=== PATIENT | female | born 1945 | race Caucasian/White ===

== ENCOUNTER 2022-07-18 08:42 | Outpatient (CLI) | payer MEDICARE, SELFPAY ==
--- NOTE | ~2022-07-18 | DEXA_ITS ---
Bone Density Report Name: REMINGTON WAN Age: 76 Sex: Female Ethnicity: White Date of : 1945 Indication: osteopenia; height loss; postmenopausal Referring Provider: MELISSA, [facility] Study: Bone densitometry was performed. Exam Date: July 18, 2022 Accession number: [id number] Bone Density: Region BMD T-score Z-score Classification AP Spine(L1-L4) 0.904 -1.3 1.1 Osteopenia Femoral Neck (Left) 0.601 -2.2 -0.1 Osteopenia Total Hip (Left) 0.785 -1.3 0.5 Osteopenia Femoral Neck (Right) 0.696 -1.4 0.7 Osteopenia Total Hip (Right) 0.821 -1.0 0.8 Normal Total Hip Mean 0.803 -1.2 0.7 Osteopenia World Health Organization criteria for BMD impression classify patients as: Normal (T-score at or above -1.0), Osteopenia (T-score between -1.0 and -2.5), or Osteoporosis (T-score at or below -2.5). 10-year Fracture Risk(1): Major Osteoporotic Fracture 13% Hip Fracture 3.5% Reported Risk Factors: [place] (), Neck BMD=0.601, BMI=33.6 (1) FRAX(R) Version 3.08. Fracture probability calculated for an untreated patient. Fracture probability may be lower if the patient has received treatment. Previous Exams: Region Exam Age BMD T-score BMD Change BMD Change Date g/cm2 vs Baseline vs Previous AP Spine (L1-L4) 07/18/2022 76 0.904 -1.3 0.038 (4.4%)* 0.038 (4.4%)* 11/18/2019 73 0.865 -1.7 Total Hip(Left) 07/18/2022 76 0.785 -1.3 -0.021 (-2.6%) -0.021 (-2.6%) 11/18/2019 73 0.805 -1.1 Total Hip(Right) 07/18/2022 76 0.821 -1.0 -0.031 (-3.7%) -0.031 (-3.7%) 11/18/2019 73 0.852 -0.7 *Denotes significance at 95% confidence level, LSC for AP Spine = 0.022 g/cm2, LSC for Total Hip = 0.027 g/cm2 Clinical Information Provided by Patient: Has used the following medications: Vitamin D, Calcium Patient maximum height was 62 Menopause Age: 51 Drinks caffeinated beverages Onset of menses at age 13 Number of children 1 Impression: The patient has low bone mass, based on the Left Femoral Neck T-score. The patient has an estimated ten-year risk of hip fracture of 3.5% and an estimated ten-year risk of major fracture of 13%, based on the WHO FRAX algorithm. The BMD for the Total Hip(Right) decreased, changing by -3.7% since the last DXA exam. Discussion: BONE DENSITY IS LOW AT ONE OR MORE SKELETAL SITES. THE PATIENT'S BMD AND CLINICAL RISK FACTORS CONTRIBUTE TO THIS PATIENT'S INCREASED RISK OF FRACTURE. This pa
--- NOTE | ~2022-07-18 | MM_ITS ---
EXAMINATION: MM screening mo BI w jie HISTORY: Screening mammogram TECHNIQUE: Craniocaudal and mediolateral oblique 3-D tomosynthesis images were obtained and synthetic 2-D images were generated. CAD analysis was submitted and interpreted. COMPARISON: 11/18/2019 bilateral screening mammogram BREAST PARENCHYMAL COMPOSITION: There are scattered areas of fibroglandular density. FINDINGS: Right breast: There is a new irregular high density spiculated approximately 1.8 cm mass in the poste rior upper outer right breast, highly suspicious for breast cancer. No other right breast mass or architectural distortion, malignant calcification, skin thickening or r etraction is noted. Occasional benign calcifications Left breast: There is no evidence of suspicious mass, calcification, or architectural distortion to s uggest malignancy in either breast. Benign calcifications. There has been no suspicious interval contreras ge. IMPRESSION: 1. 1.8 cm spiculated high density mass in the posterior upper outer right breast, highly suggestive o f malignancy 2. . Right breast ultrasound examination is recommended. BI-RADS Category 0: Incomplete: Needs additional imaging evaluation. Dr. Garces telephoned the report on 07/18/[address] Marino. Reviewed, dictated and finalized at location A. IMPRESSION: 1. 1.8 cm spiculated high density mass in the posterior upper outer right breas t, highly suggestive of malignancy 2. . Right breast ultrasound examination is recommended. BI-RADS Category 0: Incomplete: Needs additional imaging evaluation. Dr. Garces telephoned the report on 07/18/[address] Marino.
== END 2022-07-18 08:43 | disposition home or self-care (01) ==
PROVIDERS: PCP Internal Medicine; Visit Provider Internal Medicine
DX: Z12.31 Encounter for screening mammogram for malignant neoplasm of breast (principal); R92.8 Other abnormal and inconclusive findings on diagnostic imaging of breast; M85.88 Other specified disorders of bone density and structure, other site; M85.852 Other specified disorders of bone density and structure, left thigh; M85.851 Other specified disorders of bone density and structure, right thigh
CPT/HCPCS: 77063; 77067; 77080

== ENCOUNTER 2022-07-20 15:33 | Outpatient (CLI) | payer MEDICARE, SELFPAY ==
--- NOTE | ~2022-07-20 | US_ITS ---
US breast RT limited DATE: 07/20/2022 16:16 INDICATION: Right breast posterior upper outer quadrant mammographic mass TECHNIQUE: High-resolution ultrasound imaging targeted to upper outer quadrant posterior right breast mass COMPARISON: 07/18/2022 bilateral screening mammogram FINDINGS: There is a very irregular hypoechoic approximately 1.2 x 1.1 x 1.3 cm mass with posterior s hadowing at 10:00, corresponding to the mammographic abnormality, highly suggestive of malignancy IMPRESSION: BI-RADS Category 5: Highly suggestive of malignancy; appropriate action should be taken The lesion would be amenable to ultrasound-guided biopsy. Reviewed, dictated and finalized at Location A. Reviewed, dictated and finalized at location A. IMPRESSION: BI-RADS Category 5: Highly suggestive of malignancy; appropriate ac tion should be taken The lesion would be amenable to ultrasound-guided biopsy.
== END 2022-07-20 15:34 | disposition home or self-care (01) ==
PROVIDERS: PCP Internal Medicine; Visit Provider Internal Medicine
DX: R92.8 Other abnormal and inconclusive findings on diagnostic imaging of breast (principal)
CPT/HCPCS: 76642

== ENCOUNTER 2022-08-10 09:02 | Outpatient (CLI) | payer MEDICARE, SELFPAY ==
--- NOTE | ~2022-08-10 | MMUS_ITS ---
EXAMINATION: US GUIDED NEEDLE BIOPSY DATE: 08/10/2022 10:54 CDT INDICATION: Very irregular 1.3 cm hypoechoic 10:00 breast mass with posterior shadowing, highly sugge stive of malignancy TECHNIQUE AND FINDINGS: The risks and potential benefits of the procedure were discussed with the patient, and written inform ed consent was obtained. Timeout procedure was performed. After sterile preparation of the right junior st, 1% lidocaine was utilized for local anesthesia. A 14G spring-loaded biopsy gun needle was advanced to the edge of the region of interest from a media l approach utilizing sonographic guidance. A total of 5 tissue core samples were obtained through th e lesion. An Inrad tissue marker clip was then placed at the biopsy site. Hemostasis was achieved. A sterile bandage was applied. The patient tolerated procedure well and there was no evidence of immediate complication. The patien t was given verbal instructions prior to departing from the department. A two view mammogram was perf ormed to document tissue marker clip placement. The tissue samples were submitted to surgical patholo gy for histologic analysis. IMPRESSION: 1. Successful ultrasound guided biopsy of right 10:00 breast mass with biopsy marker placement. Plea se refer to pathology report for histologic analysis. Reviewed, dictated and finalized at Location A. Reviewed, dictated and finalized at location A. IMPRESSION: 1. Successful ultrasound guided biopsy of right 10:00 breast mass with biopsy marker placement. Please refer to pathology report for histologic analysis.
== END 2022-08-10 09:03 | disposition home or self-care (01) ==
PROVIDERS: PCP Internal Medicine; Visit Provider Internal Medicine
DX: R92.8 Other abnormal and inconclusive findings on diagnostic imaging of breast (principal); C50.411 Malignant neoplasm of upper-outer quadrant of right female breast
CPT/HCPCS: 19083; 88305; 88342; 88360; A4648

== ENCOUNTER 2022-12-21 12:38 | Outpatient (CLI) | payer MEDICARE, SELFPAY ==
--- NOTE | 2022-12-21 | ECHO_ITS ---
Patient Info Name: Eve Brink Age: 76 years : 1945 Gender: Female Ht: 62 in Wt: 177 lbs BSA: 1.91 m2 HR: 94 bpm BP: 142 / 85 mmHg Technical Quality: Fair Exam Date: 12/21/2022 1:06 PM Exam Location: [facility] Patient Status: Outpatient Admit Date: 12/21/2022 Staff Ordering Physician: Polo Pascual MD Account Information Clerk: Aby Shepard RDCS Attending Provider: Polo Pascual MD Referring Physician: Samara STEINER; Exam Type: CA echo doppler color flow Study Info Indications C50.411 - Malignant neoplasm of upper-outer quadrant of right female breast Complete two-dimensional, color flow and Doppler transthoracic echocardiogram is performed. Summary 1. Complete two-dimensional, color flow and Doppler transthoracic echocardiogram is performed. 2. Left ventricular chamber dimension is normal. 3. Left ventricular systolic function is normal, estimated at 65-70%. 4. There is mild concentric increased left ventricular wall thickness. 5. The left ventricular diastolic function is grade I diastolic dysfunction. 6. E/e' 10 is mildly elevated. 7. Global longitudinal strain is normal at -18.5%. 8. No pulmonary hypertension, estimated pulmonary arterial systolic pressure is 15 mmHg. Left Ventricle E/e' 10 is mildly elevated. Global longitudinal strain is normal at -18.5%. Left ventricular chamber dimension is normal. Left ventricular systolic function is normal, estimated at 65-70%. There is mild concentric increased left ventricular wall thickness. The left ventricular diastolic function is grade I diastolic dysfunction. Right Ventricle Right ventricular chamber dimension is normal. Right ventricular systolic function is normal. Left Atria Left atrial chamber dimension is normal. Right Atria Right atrial chamber dimension is normal. Aortic Valve The aortic valve is trileaflet. There is no aortic valve stenosis. There is no aortic valve regurgitation. Pulmonic Valve There is no pulmonic regurgitation. Mitral Valve There is no mitral valve stenosis. There is no mitral valve regurgitation. Tricuspid Valve There is no tricuspid valve regurgitation. No pulmonary hypertension, estimated pulmonary arterial systolic pressure is 15 mmHg. Pericardium/Pleural There is no pericardial effusion. Inferior Vena Cava Normal inferior vena cava with >50% collapse upon inspiration consistent with normal right atrial pressure, 5 mmHg. Aorta The aortic root size at the sinus of Valsalva is normal. Left Ventricular Outflow Tract Name Value Normal LVOT 2D LVOT Diameter 1.87 cm LVOT Doppler LVOT Peak Gradient 5 mmHg LVOT Mean Gradient 3 mmHg LVOT VTI 20.82 cm LVOT VTI/AV VTI Ratio 0.85 LVOT Stroke Volume 57.23 ml LVOT CO 4.39 l/min LVOT CI 2.30 L/min/m2 Pulmonic Valve Name Va
== END 2022-12-21 12:39 | disposition home or self-care (01) ==
PROVIDERS: PCP Internal Medicine; Visit Provider Internal Medicine Hematology & Oncology
DX: Z13.6 Encounter for screening for cardiovascular disorders (principal); C50.411 Malignant neoplasm of upper-outer quadrant of right female breast; Z17.0 Estrogen receptor positive status [ER+]
CPT/HCPCS: 93306

== ENCOUNTER 2023-01-15 09:16 | Inpatient (IN) | payer MEDICARE, SELFPAY ==
[2023-01-15] VITALS (12 sets, daily range): BP systolic 94–127; BP diastolic 41–71; PULSE 67–91; RESP 14–20; TEMP 36.3–36.6; O2SAT 99–100; BMI 30.7
--- NOTE | ~2023-01-15 | US_ITS ---
EXAMINATION: US renal BI DATE: 01/15/2023 22:01 INDICATION: Acute renal failure TECHNIQUE: Multiple grayscale and Doppler ultrasound images of the kidneys were obtained. COMPARISON: None. FINDINGS: The right kidney measures 10.0 x 4.3 x 4.5 cm. The left kidney measures 10.6 x 5.0 x 6.2 cm. The kidn eys demonstrate normal parenchymal echogenicity. There is no hydronephrosis. The bladder is incomplet sincere distended. IMPRESSION: Unremarkable renal sonogram findings. Incompletely distended bladder, not well evaluated. Reviewed, dictated and finalized at location K. ER AND TECHNOLOGY EDUCATION TEACHER
--- NOTE | ~2023-01-15 | MR_ITS ---
EXAMINATION: MR abdomen wo/w con DATE: 01/18/2023 14:42 INDICATION: Abnormal CT with renal mass TECHNIQUE: Magnetic resonance imaging (MRI) of the abdomen was performed without and with 15 mL Multi ronal intravenous contrast. Sequences included coronal T2-weighted SS-FSE, coronal and axial FS 2D-F IESTA, axial STIR FSE, axial T2-weighted SS-FSE, axial T2-weighted FS SS-FSE, axial diffusion-weighte d SE, axial dual-echo T1-weighted FSPGR, and axial and coronal T1-weighted LAVA. Postcontrast axial T 1-weighted LAVA images were obtained in a time course. Postcontrast coronal T1-weighted LAVA images w ere obtained. COMPARISON: CT and ultrasound dated 01/25/2023 FINDINGS: 4 x 3 cm cystic lesion in the right breast consistent with a postoperative seroma related to reported prior right breast excisional biopsy. No evident solid enhancing soft tissue component to suggest re sidual/recurrent malignancy. Heart size is normal. No pericardial or pleural effusion. Metallic magne tic field artifact related to cholecystectomy clips at the gallbladder fossa. Main pancreatic duct is dilated to 11 mm likely related to prior cholecystectomy. No evident obstructing mass or choledochol ithiasis. Liver is normal with no intrahepatic biliary ductal dilation. 1.6 cm T2 hyperintense nonenh ancing cyst in the left kidney. 8 mm T1 hyperintense, fat saturating being yield an angiomyolipoma in the right kidney. Pancreas, spleen and bilateral adrenal glands are normal. No bowel obstruction. Se veral sigmoid diverticula without evidence of associated inflammatory stranding to suggest diverticul itis. No pathologically enlarged abdominal lymphadenopathy. Moderate lower lumbar spondylosis. IMPRESSION: 1. Left renal lesion of concern corresponds to a 1.6 cm simple renal cyst. 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 2. Dilation of the common bile duct which measures up to 11 mm without evident obstructing stone or m ass and without intrahepatic biliary ductal dilation likely related to prior cystectomy. 3. Mild sigmoid diverticulosis. 4. 4 x 3 cm likely postoperative seroma at the right breast. Reviewed, dictated and finalized at [facility] IMPRESSION: 1. Left renal lesion of concern corresponds to a 1.6 cm simple renal cyst. 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 2. Dilation of the common bile duct which measures up to 11 mm without evident obstructing stone or mass and without intrahepatic biliary ductal dilation like ly related to prior cystectomy. 3. Mild sigmoid diverticulosis. 4. 4 x 3 cm likely postoperative seroma at the right breast.
--- NOTE | ~2023-01-15 | CT_ITS ---
EXAMINATION: CT abdomen pelvis wo con DATE: 01/15/2023 11:30 INDICATION: Nausea, diarrhea TECHNIQUE: Computed tomography (CT) of the abdomen and pelvis was performed without intravenous contr ast. Automated exposure control and iterative reconstruction technique were employed. Exam dose: 590 .92 mGy-cm total exam DLP. COMPARISON: None. FINDINGS: The lung bases are clear. Normal heart size. No pericardial or pleural effusion. Small sliding hiatal hernia. Status post cholecystectomy. No hepatic space-occupying mass lesion. The common bile duct appears rel atively prominent in size, likely secondary to cholecystectomy. Recommend correlation with serum bili browning level. No pancreatic duct dilatation. No pancreatic mass lesion or calcification. Normal splenic size. Normal morphology of the adrenal glands. Approximately 8 mm fatty lesion of the right kidney, likely a small angiomyolipoma. Indeterminate approximately 1.6 cm hypoattenuating lesion of the posterior mid to upper left kidney. Further evaluation with CT examination with IV contrast material or MR imaging is recommended. There are 2 small nonobstructing left renal calculi. No other urinary tract calculus or hydroureteron ephrosis is noted on either side. The urinary bladder appears normal. The uterus and adnexal areas ar e unremarkable. Normal caliber of the abdominal aorta. No intraperitoneal or retroperitoneal or pelvic mass lesion or adenopathy or ascites. Diverticulosis of left and right colon; no CT evidence of diverticulitis. No bowel obstruction, bowel wall thickening, pneumatosis or intraperitoneal free air is detected. There are scattered small bowel and multiple colonic air-fluid levels, consistent with history of paola rrhea. Bilateral small fat-containing inguinal hernias. Small fat-containing umbilical hernia. Degenerative spurring of the thoracic spine. Severe degenerative disc disease at L4-5. 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 Reviewed, dictated and finalized at location 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
--- NOTE | 2023-01-15 09:43 | ED.NAVMDI ---
HPI - Nausea/Vomiting/Diarrhea General Chief complaint: Nausea/Vomiting/Diarrhea Stated complaint: diarrhea/nausea (chemo patient) Time Seen by Provider: 01/15/23 09:28 Source: patient, family and RN notes reviewed Mode of arrival: wheelchair Limitations: no limitations History of Present Illness HPI Narrative: This is a 77-year-old female that presents to the emergency department for diarrhea ongoing over the last couple of weeks. Patient is currently undergoing chemotherapy for breast cancer. This is her second round of this chemotherapy regimen. Since her last treatment she has been having ongoing diarrhea. Reports about 2-3 episodes daily. She has been taking Lomotil for this with little relief. Reports over the last couple of days she has also had decreased p.o. intake due to nausea. Her oncologist is Dr. Pascual. Denies fever, abdominal pain, hematochezia or melena. Related Data Home Medications Medication Instructions Recorded Confirmed cholecalciferol (vitamin D3) 50 100 mcg PO DAILY 06/27/21 01/15/23 mcg (2,000 unit) capsule calcium 600 mg capsule 1,200 mg PO BID 11/19/22 01/15/23 atorvastatin 40 mg tablet 40 mg PO QAM 01/15/23 01/15/23 lisinopril 20 mg tablet 20 mg PO QAM 01/15/23 01/15/23 Allergies Allergy/AdvReac Type Severity Reaction Status Date / Time No Known Allergies Allergy Verified 01/15/23 09:28 Review of Systems Review of Systems: CONSTITUTIONAL: Denies fever GASTROINTESTINAL: Reports nausea, vomiting and diarrhea. Denies abdominal pain GENITOURINARY: Denies dysuria NEUROLOGIC: Reports generalized weakness. All systems reviewed & are unremarkable except as noted in HPI and below PMFSH Past Medical History Medical History (Updated 01/15/23 @ 17:16 by Yanira Rodriguez PA-C) Essential hypertension Malignant neoplasm of upper-outer quadrant of right female breast Mixed hyperlipidemia Port-A-Cath in place Surgical History Surgical History (Updated 01/15/23 @ 13:02 by Ashley Hargrove NP) H/O cataract extraction H/O lumpectomy Hx of cholecystectomy Status post laparoscopic appendectomy Family History Family History Sibling Depression Family history of malignant neoplasm of breast in first degree relative Mother Family history of malignant neoplasm of breast in first degree relative Social History Social History (Updated 01/15/23 @ 13:05 by Ashley Hargrove NP) Social History: . 1 child . 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 HEAD: Normocephalic, atraumatic. EYES: EOMI. ENT: Mucous membranes moist. Oropharynx without tonsillar hypertrophy exudate or other lesions. CHEST: Clear to auscultation. No respiratory distress. No wheezes rales or rhonchi HEART: Regular rate and rhythm. No murmur heard. Normal peripheral pulses. ABDOMEN: Soft, nontender, nondistended, normal active bowel sounds. EXTREMITIES: Normal range of motion. No edema. SKIN: Warm, dry, no rash. NEURO: No focal deficits. Alert and oriented x3. PSYCH: Normal mood and affect Course Course Emergency Course: Patient and family updated on work-up and need for admission Consultations Consultation #1: Spoke with hospitalist about patient and work-up who accepts admission Date: 01/15/23 Consultation #2: Spoke with nephrology, Dr. Hogue, who will consult Date:
[2023-01-15 09:45] LABS: Basophils Absolute Auto 0.1 K/mm3 (0.0-0.1); Basophils Percent Auto 1.4 % (0.2-1.2); Eosinophils Percent Auto 0.3 % (0-4.4); Hematocrit 38.9 % (37.0-47.0); Hemoglobin 13.5 g/dL (12.0-15.0); Immature Granulocyte Absolute 0.22 K/mm3 (0.00-0.031); Immature Granulocyte Percent A 3.7 % (0-0.5); Lymphocytes Absolute Auto 1.16 K/mm3 (0.9-3.2); Lymphocytes Percent Auto 19.7 % (18.3-44.2); Mean Corpuscular HGB Conc 34.7 g/dl (32-36); Mean Corpuscular Hemoglobin 30.1 pg (26-34); Mean Corpuscular Volume 86.6 fl (80-100); Mean Platelet Volume 9.2 fl (7.4-10.4); Monocytes Absolute Auto 0.8 K/mm3 (0.1-0.6); Monocytes Percent Auto 13.9 % (2.6-8.5); Neutrophils Absolute Auto 3.6 K/mm3 (1.3-6.7); Platelet Count Result 319 k/mm3 (150-375); Red Blood Count 4.49 M/mm3 (4.2-5.4); Red Cell Distribution Width 12.9 % (11.5-14.5); White Blood Count 5.9 K/mm3 (4.5-10.0)
[2023-01-15] MEDS: SODIUM CHLORIDE 0.9% IV 500 ML 999 ML IV CONT (09:53)
[2023-01-15] MEDS: METOCLOPRAMIDE HCL INJ 10 MG/2 ML VIAL IV PUSH (09:54)
[2023-01-15] MEDS: diphenhydrAMINE HCl INJ 50 MG/ML VIAL 25 MG IV PUSH (09:54)
[2023-01-15 09:56] LABS: Alanine Aminotransferase 32 U/L (6-35); Albumin Level 4.4 g/dL (3.5-5.1); Alkaline Phosphatase 112 U/L (38-126); Anion Gap 18 mmol/L (8-16); Aspartate Amino Transferase 37 U/L (14-36); Bilirubin,Total 0.7 mg/dL (0.2-1.3); Blood Urea Nitrogen 76 mg/dL (7-17); Calcium 9.1 mg/dL (8.4-10.2); Carbon Dioxide 14 mmol/L (22-30); Chloride 92 mmol/L (98-107); Estimated CRCL calculation 5 ml/min; Estimated Glomerular Filt Rate 4; Glucose 91 mg/dL (65-110); Lipase 574 U/L (23-300); Potassium 3.5 mmol/L (3.4-5.0); Sodium 124 mmol/L (137-145)
[2023-01-15] MEDS: SODIUM CHLORIDE 0.9% IV 1,000 ML 999 ML IV CONT ×2 (10:31→14:05)
[2023-01-15 12:28] LABS: Appearance Urine Cloudy (Clear); Bacteria Urine None Seen /hpf; Bilirubin Urine Negative (Negative); Blood Urine 1+ (Negative); Color Urine Yellow (Yellow); Glucose Urine UA Negative (Negative); Ketones Urine Trace mg/dL (Negative); Leukocyte Esterase Ur Negative LEU/UL (Negative); Mucus Urine Present /lpf; Nitrate Urine Negative (Negative); Non Pathogenic Casts >20; Protein Urine 1+ mg/dL (Negative); Specific Grav Ur 1.017 (1.001-1.035); Squamous Epithelial Cell Urine Few /hpf (Few); Urobilinogen Urine 0.2 mg/dL (<2.0); WBC Urine 0-5 /hpf
[2023-01-15 12:32] LABS: Add Urine Microscopic? YES
--- NOTE | 2023-01-15 13:00 | PM.IMHP ---
H&P: HPI History of Present Illness Date/Time: 01/15/23 13:00 Chief Complaint: Nausea vomiting diarrhea Narrative: This is a 77-year-old female patient who has been undergoing chemotherapy for breast cancer. She does see Dr. Pascual. She stated that the last time she had chemotherapy was 2 weeks ago. The patient initially was on a different type of chemotherapy and 2 weeks ago she had stated that she had a new type of chemotherapy. The patient was recently found to have grade 2 hers 60% positive. Patient has had history of lung back. The patient stated that she will need to go through chemotherapy for at least 1 year and decided to have a Port-A-Cath placed. The patient had started her 1st cycle on 11/14 which D.C. regimen on November 22, 2022. Then the patient was found to be Hurst positive. The patient has had multiple episodes of diarrhea as well as nausea. The patient denies any fever chills. The patient has had no prior history of any kidney disease. Today her sodium was 124, chloride 92, anion gap 18, BUN 76 and creatinine 9.5. GFR is 4 her most recent labs were in 01/02/2023 and her kidney function was within normal limits at that time. Her potassium is within normal limits. 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 Nephrology as well as Oncology have been consulted. The patient is being admitted to observation status on the date of service of 01/15/2023. Review of Systems Review of Systems: See HPI All systems reviewed & are unremarkable except as noted in HPI and below Constitutional: Constitutional: Reports as per HPI and Reports no additional constitutional complaints Eyes: Eyes: Reports as per HPI and Reports no additional eye complaints ENT: Reports system reviewed and no additional complaints, except as documented and Reports Normal hearing present Cardiovascular: Cardiovascular: Reports no additional cardiovascular complaints Respiratory: Respiratory: Reports no additional respiratory complaints and Reports no additional respiratory complaints Gastrointestinal: Gastrointestinal: Reports as per HPI and Reports no additional gastrointestinal complaints Musculoskeletal: Musculoskeletal: Reports no additional musculoskeletal complaints Integumentary/Breasts: Skin/Breast: Reports system reviewed and no additional complaints, except as docu and Reports as per HPI Neurologic: Reports system reviewed and no additional complaints, except as documented, Reports as per HPI and Reports Normal hearing present Psychiatric: Psychiatric: Reports no additional psychiatric complaints and Reports as per HPI Endocrine: Endocrine: Reports no additional endocrine complaints Hematologic/Lymphatic: Hematologic/Lymphatic: Reports no additional hematologic/lymphatic complaints Allergic/Immunologic: Allergic/Immunologic: Reports no additional allergic/immunologic complaints PMFSH Past Medical History Medical History (Updated 01/15/23 @ 19:05 by Ashley Hargrove NP) Essential hypertension Malignant neoplasm of upper-outer quadrant of right female breast Mixed hyperlipidemia Port-A-Cath in place Surgical History Surgical History H/O cataract extraction H/O lumpectomy Hx of cholecystectomy Status post laparoscopic appendectomy Family History Family History Sibling
[2023-01-15 13:24] LABS: Creatinine Urine 174.4 mg/dL
[2023-01-15 13:32] LABS: Sodium Urine Random 20 meq/L
--- NOTE | 2023-01-15 14:41 | ADMGEN ---
This patient, Eve Brink, was admitted to Medical Room 261-01. Patient/family oriented to hospital policies and general routines including ID bracelet, bed and alarms, visiting hours, pain management, procedures, bathroom and other care routines, personal items, smoking policy, room service/diet, and visiting hours. Information on how to activate the Rapid Response Team has been discussed. Patient/Family are encouraged to report perceived risks to care and to ask questions if they do not understand what they are told or what they should do.
[2023-01-15] MEDS: SODIUM CHLORIDE 0.9% IV 1,000 ML 150 ML IV CONT (18:08)
[2023-01-15 20:20] LABS: Anion Gap 12 mmol/L (8-16); Blood Urea Nitrogen 66 mg/dL (7-17); Calcium 7.7 mg/dL (8.4-10.2); Carbon Dioxide 14 mmol/L (22-30); Chloride 105 mmol/L (98-107); Estimated CRCL calculation 6 ml/min; Estimated Glomerular Filt Rate 6; Glucose 138 mg/dL (65-110); Potassium 2.4 mmol/L (3.4-5.0); Sodium 131 mmol/L (137-145)
[2023-01-15] MEDS: POTASSIUM CHLORIDE 20 MEQ PACKET (FOR LIQUID) 40 MEQ PO (22:10)
[2023-01-15] MEDS: POTASSIUM CHLORIDE INJ 40 MEQ in SODIUM CHLORIDE 0.9% IV 500 ML 130 MEQ IVPB (22:11)
[2023-01-16] VITALS (8 sets, daily range): BP systolic 112–136; BP diastolic 55–72; PULSE 65–87; RESP 14–18; TEMP 36.3–36.6; O2SAT 96–100
[2023-01-16] MEDS: SODIUM CHLORIDE 0.9% IV 1,000 ML 150 ML IV CONT ×2 (05:55→13:20)
[2023-01-16 06:49] LABS: Albumin Level 3.3 g/dL (3.5-5.1); Anion Gap 7 mmol/L (8-16); Blood Urea Nitrogen 50 mg/dL (7-17); Carbon Dioxide 15 mmol/L (22-30); Chloride 114 mmol/L (98-107); Creatine Kinase 239 U/L (30-135); Estimated CRCL calculation 11 ml/min; Estimated Glomerular Filt Rate 12; Glucose 99 mg/dL (65-110); Magnesium 2.2 mg/dL (1.6-2.3); Phosphorus 3.1 mg/dL (2.5-4.5); Potassium 3.7 mmol/L (3.4-5.0); Sodium 136 mmol/L (137-145)
[2023-01-16] MEDS: CHOLECALCIFEROL 1,000 UNITS TABLET 2000 UNITS PO (08:02)
[2023-01-16] MEDS: CALCIUM CARBONATE (OSCAL) 500 MG TABLET 1000 MG PO ×2 (08:03→16:24)
[2023-01-16] MEDS: ATORVASTATIN 40 MG TABLET PO (08:03)
--- NOTE | 2023-01-16 11:55 | PM.IMPN ---
Progress Note: A&P Assessment and Plan (1) Acute kidney failure: Qualifiers: Acute renal failure type: unspecified Qualified Code(s): N17.9 - Acute kidney failure, unspecified Code(s): N17.9 - Acute kidney failure, unspecified Status: Acute Assessment and Plan: Creatinine 9.5 on admission. BUN of 76 Metabolic acidosis carbon dioxide of 14 initially with high anion gap with hyponatremia Nephrology has been consulted Patient reported diarrhea creatinine continues to improve down to 3.7 today Indeterminate approximately 1.6 cm hypoattenuating lesion of the posterior mid to upper left kidney; further evaluation with CT with contrast However the patient has acute kidney injury and cannot receive a CT with contrast at this time. Please re-evaluate at a later date. Continue IV hydration as ordered CK level 239 mildly elevated Lipase elevated at 574 The patient has been getting chemotherapy with the side effects of acute kidney disease . The patient also has had nausea vomiting and diarrhea. (2) Acute hyponatremia: Code(s): E87.1 - Hypo-osmolality and hyponatremia Status: Acute Assessment and Plan: The patient is severely dehydrated. Sodium level of 124 on admission previous level was normal Nephrology on board (3) Kidney lesion: Code(s): N28.9 - Disorder of kidney and ureter, unspecified Status: Acute Assessment and Plan: Unable to do a CT with contrast at this time. Please re-evaluate kidney lesion and possibly get a CT with contrast when patient's renal function has improved. (4) Essential hypertension: Code(s): I10 - Essential (primary) hypertension Status: Acute Assessment and Plan: Hold lisinopril due to the acute renal failure P.r.n. 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 will check stool culture. ct abdomen with fluid levels s/o ongoing diarrhea Subjective Date/time seen: 01/16/23 11:55 Interval history: This is a 77-year-old female patient who has been undergoing chemotherapy for breast cancer.? She does see Dr. Pascual.? She stated that the last time she had chemotherapy was 2 weeks ago.? The patient initially was on a different type of chemotherapy and 2 weeks ago she had stated that she had a new type of chemotherapy.? The patient was recently found to have grade 2 hers 60% positive.? Patient has had history of lung back.? The patient stated that she will need to go through chemotherapy for at least 1 year and decided to have a Port-A-Cath placed.? The patient had started her 1st cycle on 11/14 which D.C. regimen on November 22, 2022.? Then the patient was found to be Hurst positive.? The patient has had multiple episodes of diarrhea as well as nausea.? The patient denies any fever chills.? The patient has had no prior history of any kidney disease.? Today her sodium was 124, chloride 92, anion gap 18, BUN 76 and creatinine 9.5.? GFR is 4 her most recent labs were in 01/02/2023 and her kidney function was within normal limits at that time.? Her potassium is within normal limits.? 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 Nephrology as well as Oncology have been cons
--- NOTE | 2023-01-16 12:21 | PM.CNNEP ---
Assessment and Plan Assessment and plan (1) Acute kidney failure: Qualifiers: Acute renal failure type: unspecified Qualified Code(s): N17.9 - Acute kidney failure, unspecified Code(s): N17.9 - Acute kidney failure, unspecified Status: Acute Assessment and Plan: normal renal function/creatinine at baseline improvement noted with IVF resuscitation arguing in favor that volume depletion etiology history (nausea/vomiting/diarrhea) suggestive of dehydration as well evaluation to date noted: urine electrolyte prerenal CT imaging/renal ultrasound without obstruction continue IVF hydration follow repeat labs and UOP (2) Acute hyponatremia: Code(s): E87.1 - Hypo-osmolality and hyponatremia Status: Acute Assessment and Plan: resolved due to hypovolemia urine sodium and creatinine indicative of prerenal azotemia follow trend of sodium (3) Kidney lesion: Code(s): N28.9 - Disorder of kidney and ureter, unspecified Status: Acute Assessment and Plan: as noted by CT imaging no mention of this by renal ultrasound further imaging with contrast once renal function better (4) Essential hypertension: Code(s): I10 - Essential (primary) hypertension Status: Acute Assessment and Plan: reasonable control at this time lisinopril on hold due to #1 follow hemodynamics Will continue to follow. History of Present Illness Reason for Consult Consult date: 01/16/23 Reason for consult: acute renal failure Chief Complaint Chief complaint: Acute Kidney Failure History of Present Illness Narrative: The patient is a 77-year-old female with a past medical history as outlined below who presented to [facility] Emergency room for further evaluation of nausea, vomiting, and diarrhea. The patient is currently undergoing chemotherapy for breast cancer and follows with Dr. Pascual for management of this. Approximately two weeks ago, her chemotherapy was adjusted based on the specifics with regard to her breast cancer. About a week after starting chemotherapy, is when her GI symptoms started. She reports multiple episodes of diarrhea in association with vomiting and nausea. She reports no fevers or chills but does admit to some generalized weakness and a decline in urine output. Given these symptoms, she was presented to the ER for further assessment. Workup and evaluation in the emergency room demonstrated the patient to be hemodynamically stable although her blood pressure was a bit on the soft side given her history of hypertension. Routine blood test demonstrated marked abnormalities including acute kidney injury/acute renal failure with a BUN of 76, creatinine 9.5, sodium 124, and associated GFR of 4 cc/minute. It should be noted that labs done approximately 2-3 weeks ago showed her kidney functions well within normal limits. Given her GI symptoms a CT scan of the abdomen pelvis was done which demonstrated small and large bowel are all air-fluid levels without obstruction consistent with diarrhea, diverticulosis without evidence of diverticulitis, nonobstructing left nephrolithiasis, probable small right renal angio myelolipoma, and an indeterminate 1.6 cm hypoattenuating lesion of the posterior mid to upper left kidney. She was received aggressive IV fluid resuscitation and was subsequently admitted to the hospital for further evaluation and therapy. Renal consultation was requested due to her acute kidney injury/acute renal failure. As already mentioned, she has normal renal function at baseline approximately 2-3 weeks ago and with the interventions that have been instituted since her hospitalization, her renal function has significantly improved in association with increased urine output and stabilization of her electrolytes. The presumed etiology of her acute kidney injury is that of volume depletion given the history of nausea, v
[2023-01-16 13:39] LABS: Toxigenic C. Diff NEGATIVE (NEGATIVE)
--- NOTE | 2023-01-16 14:08 | PCCCNOTE ---
On 01/16/23, the student, [Kandi Franco], provided care and completed [facility] documentation on this patient. I have reviewed the student's documentation and agree with the findings.
[2023-01-16 17:20] LABS: Creatinine Urine 95.2 mg/dL; Total Protein Urine Random 27 mg/dL; Ur Ttl Prot Creatinine Ratio 0.28 mg/mg (0-0.20); Urea Random Urine 723 MG/DL
[2023-01-16 17:23] LABS: Sodium Urine Random 53 meq/L
--- NOTE | 2023-01-16 19:07 | PDONCCN ---
HPI - Date of Consult Date/Time: 01/16/23 19:07 Requesting Physician: Andres Rojas MD Primary Care Provider: UNKNOWN,DOCTOR - Consult Narrative Reason for consult: Breast cancer Narrative: Eve Brink is a 77 year old female with HER2 Gian positive breast cancer received chemotherapy with TCH Perjeta cycle 1 on January 02. She started having diarrheal stool 3 to 4 times a day and became dehydrated with dark urine. She denies any fevers and chills. She was having some nausea. She took Imodium and Lomotil without much improvement in diarrhea. She came into the ER due to profound diarrhea. Abdominal and pelvic CT scan showed small and large bowel air-fluid level without obstruction consistent with diarrhea. Labs showed normal WBC and hemoglobin. Creatinine was elevated at at 9.5 with elevated BUN due to dehydration. Nephrology was consulted. She is already feeling better after the IV hydration. Review of Systems - Review of Systems All systems reviewed & are unremarkable except as noted in HPI and bel - Neurologic Reports system reviewed and no additional complaints, except as documented, Reports hearing normal [facility] Medical History: Medical History (Last Updated 01/15/23 @ 19:05 by Ashley Hargrove NP) Essential hypertension Malignant neoplasm of upper-outer quadrant of right female breast Mixed hyperlipidemia Port-A-Cath in place Surgical History: Surgical History (Last Reviewed 01/15/23 @ 18:34 by Ashley Hargrove NP) H/O cataract extraction H/O lumpectomy Hx of cholecystectomy Status post laparoscopic appendectomy Family History: Family History (Last Reviewed 01/15/23 @ 18:34 by Ashley Hargrove NP) Sibling Depression Family history of malignant neoplasm of breast in first degree relative Mother Family history of malignant neoplasm of breast in first degree relative - Social History Social History: Social History (Last Updated 01/15/23 @ 18:35 by Ashley Hargrove NP) Alcohol Use: Alcohol intake: current Alcohol use details: social Substance Use: Substance use: never Substance use type: does not use Others: Spiritual care concerns: No Smoking Status: Smoking status: Never smoker Social Determinants of Health: Has the Lack of Transportation Kept You From Medical Appointments or From Getting Medications?: No Within the Past 12 Months, Were You Worried Whether Your Food Would Run Out Before You Got Money to Buy More?: Never True What is Your Housing Situation Today?: I Have Housing Are You Worried That in the Next 2 Months, You May Not Have Your Own Housing to Live In?: No Do You Have Trouble Paying Your Heating Or Electricity Bill?: No Do You Have Trouble Paying For Medicines?: No Are You Currently Unemployed and Looking for Work?: No Highest Level of Education Completed: Associate Degree Do You Have Trouble With Childcare or the Care of a Family Member?: No Exam - Vital Signs Vital Signs - 24 hr 01/15/23 21:24 01/15/23 20:00 01/16/23 04:00 Temperature 36.5 C Pulse Rate 91 91 65 Respiratory Rate 14 14 Blood Pressure 100/69 Pulse Oximetry 100 100 Oxygen Delivery Room Air 01/16/23 05:42 01/16/23 08:00 01/16/23 08:00 Temperature 36.6 C Pulse Rate 77 76 Respiratory Rate 14 Blood Pressure 123/59 L Pulse Oximetry 100 Oxygen Delivery Room Air 01/16/23 12:00 01/16/23 15:06 01/16/23 16:00 Temperature 36.3 C L Pulse Rate 80 75 73 Respiratory Rate 18 Blood Pressure 112/55 L Pulse Oximetry 96 Oxygen Delivery - Exam HEENT: EOMI, PERRLA, mucous membranes moist and pink Neck: No: JVD Lungs: clear to auscultation, normal air movement Heart: no murmurs, gallops, or rubs, regular rhythm Abdomen: abdomen soft, non-distended, normal bowel sounds Extremities: normal pulses Integumentary: no abnormalities Neurological: normal speech Psychological:
[2023-01-16 19:22] LABS: Eosinophil Urine None Seen % (None Seen); Urine Eos QC 2nd Tech Confirmed
[2023-01-17] VITALS (11 sets, daily range): BP systolic 96–126; BP diastolic 52–80; PULSE 59–81; RESP 16–20; TEMP 36.6–36.7; O2SAT 100
[2023-01-17 06:01] LABS: Basophils Absolute Auto 0.1 K/mm3 (0.0-0.1); Basophils Percent Auto 1.2 % (0.2-1.2); Eosinophils Percent Auto 0.4 % (0-4.4); Hemoglobin 10.4 g/dL (12.0-15.0); Immature Granulocyte Percent A 5.3 % (0-0.5); Lymphocytes Absolute Auto 1.16 K/mm3 (0.9-3.2); Lymphocytes Percent Auto 20.5 % (18.3-44.2); Mean Corpuscular HGB Conc 34.7 g/dl (32-36); Mean Corpuscular Hemoglobin 30.1 pg (26-34); Mean Platelet Volume 8.9 fl (7.4-10.4); Monocytes Absolute Auto 0.7 K/mm3 (0.1-0.6); Monocytes Percent Auto 12.4 % (2.6-8.5); Neutrophils Absolute Auto 3.4 K/mm3 (1.3-6.7); Neutrophils Percent Auto 60.2 % (45.5-73.1); Platelet Count Result 256 k/mm3 (150-375); Red Blood Count 3.45 M/mm3 (4.2-5.4); Red Cell Distribution Width 13.2 % (11.5-14.5); White Blood Count 5.7 K/mm3 (4.5-10.0)
[2023-01-17 06:18] LABS: Alanine Aminotransferase 21 U/L (6-35); Albumin Level 3.1 g/dL (3.5-5.1); Alkaline Phosphatase 85 U/L (38-126); Anion Gap 5 mmol/L (8-16); Aspartate Amino Transferase 26 U/L (14-36); Bilirubin,Total 0.4 mg/dL (0.2-1.3); Blood Urea Nitrogen 20 mg/dL (7-17); Calcium 8.4 mg/dL (8.4-10.2); Carbon Dioxide 16 mmol/L (22-30); Chloride 112 mmol/L (98-107); Estimated CRCL calculation 37 ml/min; Estimated Glomerular Filt Rate 48; Glucose 93 mg/dL (65-110); Phosphorus 2.2 mg/dL (2.5-4.5); Potassium 3.2 mmol/L (3.4-5.0); Sodium 133 mmol/L (137-145)
[2023-01-17 06:35] LABS: Platelet Estimate Adequate (Adequate)
[2023-01-17 06:37] LABS: Acanthocytes 2+ (NORMAL)
[2023-01-17 06:41] LABS: Ovalocytes 1+ (NORMAL)
[2023-01-17 06:43] LABS: Schistocytes 1+ (NORMAL)
[2023-01-17] MEDS: CHOLECALCIFEROL 1,000 UNITS TABLET 2000 UNITS PO (08:19)
[2023-01-17] MEDS: CALCIUM CARBONATE (OSCAL) 500 MG TABLET 1000 MG PO ×2 (08:19→16:19)
[2023-01-17] MEDS: ATORVASTATIN 40 MG TABLET PO (08:19)
[2023-01-17] MEDS: SODIUM BICARBONATE TAB 650 MG TABLET PO ×2 (08:19→16:20)
--- NOTE | 2023-01-17 12:20 | P.PNIM_ITS ---
Progress Note: A&P Assessment and Plan (1) Acute kidney failure: Qualifiers: Acute renal failure type: unspecified Qualified Code(s): N17.9 - Acute kidney failure, unspecified Code(s): N17.9 - Acute kidney failure, unspecified Status: Acute Assessment and Plan: Creatinine 9.5 on admission. BUN of 76 Metabolic acidosis carbon dioxide of 14 initially with high anion gap with hyponatremia Nephrology has been consulted Patient reported diarrhea creatinine continues to improve down to 3.7 today Indeterminate approximately 1.6 cm hypoattenuating lesion of the posterior mid to upper left kidney; further evaluation with CT with contrast However the patient has acute kidney injury and cannot receive a CT with contrast at this time. Please re-evaluate at a later date. Continue IV hydration as ordered CK level 239 mildly elevated Lipase elevated at 574 The patient has been getting chemotherapy with the side effects of acute kidney disease . The patient also has had nausea vomiting and diarrhea. renal failur ehas resolved today. (2) Acute hyponatremia: Code(s): E87.1 - Hypo-osmolality and hyponatremia Status: Acute Assessment and Plan: The patient is severely dehydrated. Sodium level of 124 on admission previous level was normal Nephrology on board (3) Kidney lesion: Code(s): N28.9 - Disorder of kidney and ureter, unspecified Status: Acute Assessment and Plan: Unable to do a CT with contrast at this time. Please re-evaluate kidney lesion and possibly get a CT with contrast when patient's renal function has improved. (4) Essential hypertension: Code(s): I10 - Essential (primary) hypertension Status: Acute Assessment and Plan: Hold lisinopril due to the acute renal failure P.r.n. 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 will check stool culture. ct abdomen with fluid levels s/o ongoing diarrhea Subjective Date/time seen: 01/17/23 12:20 Interval history: This is a 77-year-old female patient who has been undergoing chemotherapy for breast cancer.? She does see Dr. Pascual.? She stated that the last time she had chemotherapy was 2 weeks ago.? The patient initially was on a different type of chemotherapy and 2 weeks ago she had stated that she had a new type of chemotherapy.? The patient was recently found to have grade 2 hers 60% positive.? Patient has had history of lung back.? The patient stated that she will need to go through chemotherapy for at least 1 year and decided to have a Port-A-Cath placed.? The patient had started her 1st cycle on 11/14 which D.C. regimen on November 22, 2022.? Then the patient was found to be Hurst positive.? The patient has had multiple episodes of diarrhea as well as nausea.? The patient denies any fever chills.? The patient has had no prior history of any kidney disease.? Today her sodium was 124, chloride 92, anion gap 18, BUN 76 and creatinine 9.5.? GFR is 4 her most recent labs were in 01/02/2023 and her kidney function was within normal limits at that time.? Her potassium is within normal limits.? Abdominal pelvis CT was read as the followingSmall and large bowel air- fluid levels without obstruction, consistent with clinical complaint of diarrhea Small sliding hiatal hernia Status post cholecystectomy Diverticulosis of left and right colon; no evidence of diverticulitis Indeterminate appr
[2023-01-17] MEDS: LOPERAMIDE HCL 2 MG CAPSULE PO (12:38)
[2023-01-17] MEDS: POTASSIUM CHLORIDE 20 MEQ TABLET 40 MEQ PO (12:38)
--- NOTE | 2023-01-17 13:04 | PCCCNOTE ---
On 01/17/23, the student, {Kandi Franco], provided care and completed [facility] documentation on this patient. I have reviewed the student's documentation and agree with the findings.
--- NOTE | 2023-01-17 13:10 | P.PNNP_ITS ---
Progress Note: A&P Assessment and Plan (1) Acute kidney failure: Qualifiers: Acute renal failure type: unspecified Qualified Code(s): N17.9 - Acute kidney failure, unspecified Code(s): N17.9 - Acute kidney failure, unspecified Status: Acute Assessment and Plan: * improving/resolving * normal renal function/creatinine at baseline * improvement with IVF resuscitation arguing in favor that volume depletion etiology * history (nausea/vomiting/diarrhea) suggestive of dehydration as well * evaluation to date noted: * urine electrolyte prerenal * CT imaging/renal ultrasound without obstruction * urine eosinophils negative * on lisinopril prior to admission * gentle IVF hydration * follow repeat labs and UOP (2) Acute hyponatremia: Code(s): E87.1 - Hypo-osmolality and hyponatremia Status: Acute Assessment and Plan: * resolved * due to hypovolemia * urine sodium and creatinine indicative of prerenal azotemia * follow trend of sodium (3) Kidney lesion: Code(s): N28.9 - Disorder of kidney and ureter, unspecified Status: Acute Assessment and Plan: * as noted by CT imaging * no mention of this by renal ultrasound * further imaging with contrast once renal function better (4) Essential hypertension: Code(s): I10 - Essential (primary) hypertension Status: Acute Assessment and Plan: * reasonable control at this time * lisinopril on hold due to #1 * follow hemodynamics Will continue to follow. Subjective Date/time seen: 01/17/23 13:10 Conitnues to make slow and steady improvement; still having some mild to moderate diarrhea but reports no further nausea or vomiting; renal function continues to improve as noted by AM labs; no apparent distress voiced at the time of my visit. Exam Narrative: General: WD/WN female in NAD Heart: normal S1 and S2; no rub Lungs: clear to auscultation Abdomen: soft, nontender, nondistended, positive bowel sounds Extremities: no cyanosis or clubbing; no edema Skin: warm and dry Objective Data Vital Signs Vital Signs: Vital Signs Temp Pulse Resp BP Pulse Ox O2 Del Method 01/17/23 12:00 71 01/17/23 08:15 Room Air 01/17/23 08:00 59 L 01/17/23 06:32 97.8 F 64 16 96/60 L 100 01/17/23 04:00 64 01/17/23 00:00 68 01/16/23 20:00 87 01/16/23 20:00 81 18 99 Room Air 01/16/23 20:09 97.7 F 81 18 136/72 99 01/16/23 16:00 73 01/16/23 15:06 97.3 F L 75 18 112/55 L 96 Intake/Output Intake/Output: Intake & Output 01/14/23 01/15/23 01/16/23 01/17/23 23:59 23:59 23:59 23:59 Intake Total 1950 2990 320 Output Total 250 100 Balance 1700 2890 320 Meds/Results Medications: Active Medications Generic Name Dose Route Start Last Admin Trade Name Mahendraq PRN Reason Stop Dose Admin Atorvastatin Calcium 40 mg 01/16/23 09:00 01/17/23 08:19 Atorvastatin 40 Mg Tablet PO 40 mg QAM MIHAELA Administration Calcium Carbonate 1,000 mg 01/16/23 09:00 01/17/23 08:19 Calcium Carbonate (Oscal) 500 Mg Tablet PO
--- NOTE | 2023-01-17 13:10 | PM.PNNEP ---
Progress Note: A&P Assessment and Plan (1) Acute kidney failure: Qualifiers: Acute renal failure type: unspecified Qualified Code(s): N17.9 - Acute kidney failure, unspecified Code(s): N17.9 - Acute kidney failure, unspecified Status: Acute Assessment and Plan: improving/resolving normal renal function/creatinine at baseline improvement with IVF resuscitation arguing in favor that volume depletion etiology history (nausea/vomiting/diarrhea) suggestive of dehydration as well evaluation to date noted: urine electrolyte prerenal CT imaging/renal ultrasound without obstruction urine eosinophils negative on lisinopril prior to admission gentle IVF hydration follow repeat labs and UOP (2) Acute hyponatremia: Code(s): E87.1 - Hypo-osmolality and hyponatremia Status: Acute Assessment and Plan: resolved due to hypovolemia urine sodium and creatinine indicative of prerenal azotemia follow trend of sodium (3) Kidney lesion: Code(s): N28.9 - Disorder of kidney and ureter, unspecified Status: Acute Assessment and Plan: as noted by CT imaging no mention of this by renal ultrasound further imaging with contrast once renal function better (4) Essential hypertension: Code(s): I10 - Essential (primary) hypertension Status: Acute Assessment and Plan: reasonable control at this time lisinopril on hold due to #1 follow hemodynamics Will continue to follow. Subjective Date/time seen: 01/17/23 13:10 Conitnues to make slow and steady improvement; still having some mild to moderate diarrhea but reports no further nausea or vomiting; renal function continues to improve as noted by AM labs; no apparent distress voiced at the time of my visit. Exam Narrative: General: WD/WN female in NAD Heart: normal S1 and S2; no rub Lungs: clear to auscultation Abdomen: soft, nontender, nondistended, positive bowel sounds Extremities: no cyanosis or clubbing; no edema Skin: warm and dry Objective Data Vital Signs Vital Signs: Vital Signs Temp Pulse Resp BP Pulse Ox O2 Del Method 01/17/23 12:00 71 01/17/23 08:15 Room Air 01/17/23 08:00 59 L 01/17/23 06:32 97.8 F 64 16 96/60 L 100 01/17/23 04:00 64 01/17/23 00:00 68 01/16/23 20:00 87 01/16/23 20:00 81 18 99 Room Air 01/16/23 20:09 97.7 F 81 18 136/72 99 01/16/23 16:00 73 01/16/23 15:06 97.3 F L 75 18 112/55 L 96 Intake/Output Intake/Output: Intake & Output 01/14/23 01/15/23 01/16/23 01/17/23 23:59 23:59 23:59 23:59 Intake Total 1950 2990 320 Output Total 250 100 Balance 1700 2890 320 Meds/Results Medications: Active Medications Generic Name Dose Route Start Last Admin Trade Name Freq PRN Reason Stop Dose Admin Atorvastatin Calcium 40 mg 01/16/23 09:00 01/17/23 08:19 Atorvastatin 40 Mg Tablet PO 40 mg QAM MIHAELA Administration Calcium Carbonate 1,000 mg 01/16/23 09:00 01/17/23 08:19 Calcium Carbonate (Oscal) 500 Mg Tablet PO 02/15/23 08:59 1,000 mg BID MIHAELA Administration Hydralazine HCl 10 mg 01/15/23 19:06 Hydralazine Hcl 20 Mg/Ml Vial IV PUSH Q8H PRN Blood Pressure - High Sodium Chloride 1,000 mls @ 50 mls/hr 01/16/23 16:45 Normal Saline Iv IV CONT .Q20H [facility] Loperamide HCl 2 mg 01/17/23 12:22 01/17/23 12:38 Loperamide Hcl 2 Mg Capsule PO 2 mg PRN PRN Administration Diarrhea Sodium Bicarbonate 650 mg 01/17/23 09:00 01/17/23 08:19 Sodium Bicarbonate Tab 650 Mg Tablet PO 650 mg BID MIHAELA Administration Vitamin D 2,000 units 01/16/23 09:00 01/17/23 08:19 Cholecalciferol 1,000 Units Tablet PO 2,000 units DAILY MIHAELA Administration Radiology Results: ITS Impressions Abdomen/Pelvis CT 01/15/23 11:35 IMPRESSION: Small and large bowel air-fluid levels without ob
[2023-01-17] MEDS: SODIUM CHLORIDE 0.9% IV 1,000 ML 50 ML IV CONT (14:26)
--- NOTE | 2023-01-17 16:18 | PC.NURSE ---
Around 1300 patient reports having a solid bowel movement.
[2023-01-18] MEDS: ONDANSETRON INJ 4 MG/2 ML VIAL IV PUSH (03:20)
[2023-01-18 03:23] VITALS: BP 125/70; PULSE 66; RESP 20; TEMP 36.2; O2SAT 100
[2023-01-18 04:00] VITALS: PULSE 66
[2023-01-18 06:07] LABS: Basophils Absolute Auto 0.1 K/mm3 (0.0-0.1); Basophils Percent Auto 1.4 % (0.2-1.2); Eosinophils Percent Auto 0.3 % (0-4.4); Hematocrit 29.8 % (37.0-47.0); Hemoglobin 10.7 g/dL (12.0-15.0); Immature Granulocyte Absolute 0.32 K/mm3 (0.00-0.031); Immature Granulocyte Percent A 4.5 % (0-0.5); Lymphocytes Absolute Auto 1.48 K/mm3 (0.9-3.2); Lymphocytes Percent Auto 20.6 % (18.3-44.2); Mean Corpuscular HGB Conc 35.9 g/dl (32-36); Mean Corpuscular Hemoglobin 30.3 pg (26-34); Mean Corpuscular Volume 84.4 fl (80-100); Mean Platelet Volume 8.7 fl (7.4-10.4); Monocytes Absolute Auto 0.7 K/mm3 (0.1-0.6); Neutrophils Absolute Auto 4.5 K/mm3 (1.3-6.7); Neutrophils Percent Auto 63.2 % (45.5-73.1); Platelet Count Result 274 k/mm3 (150-375); Red Blood Count 3.53 M/mm3 (4.2-5.4); Red Cell Distribution Width 13.3 % (11.5-14.5); White Blood Count 7.2 K/mm3 (4.5-10.0)
[2023-01-18 06:32] LABS: Alanine Aminotransferase 22 U/L (6-35); Albumin Level 3.3 g/dL (3.5-5.1); Alkaline Phosphatase 79 U/L (38-126); Anion Gap 6 mmol/L (8-16); Aspartate Amino Transferase 28 U/L (14-36); Bilirubin,Total 0.5 mg/dL (0.2-1.3); Blood Urea Nitrogen 10 mg/dL (7-17); Calcium 8.6 mg/dL (8.4-10.2); Carbon Dioxide 18 mmol/L (22-30); Chloride 113 mmol/L (98-107); Estimated CRCL calculation 50 ml/min; Estimated Glomerular Filt Rate > 60; Glucose 99 mg/dL (65-110); Magnesium 1.8 mg/dL (1.6-2.3); Phosphorus 1.5 mg/dL (2.5-4.5); Potassium 3.6 mmol/L (3.4-5.0); Sodium 137 mmol/L (137-145)
--- NOTE | 2023-01-18 08:23 | PM.IMPN ---
Progress Note: A&P Assessment and Plan (1) Acute kidney failure: Qualifiers: Acute renal failure type: unspecified Qualified Code(s): N17.9 - Acute kidney failure, unspecified Code(s): N17.9 - Acute kidney failure, unspecified Status: Acute Assessment and Plan: Creatinine 9.5 on admission. BUN of 76 Metabolic acidosis carbon dioxide of 14 initially with high anion gap with hyponatremia Nephrology has been consulted Patient reported diarrhea Renal ultrasound with indeterminate approximately 1.6 cm hypoattenuating lesion of the posterior mid to upper left kidney; further evaluation with CT with contrast However the patient has acute kidney injury and cannot receive a CT with contrast at this time. Please re-evaluate at a later date. Abdomen performed today reveals 1.6 cm simple renal cyst for the lesion of concern. Continue IV hydration as ordered CK level 239 mildly elevated Lipase elevated at 574 The patient has been getting chemotherapy with the side effects of acute kidney disease . The patient also has had nausea vomiting and diarrhea. Renal failure has resolved. Mild metabolic acidosis persist non-anion gap likely due to underlying diarrhea/RTA due to renal failure. Will stop. Her IV fluid today (2) Acute hyponatremia: Code(s): E87.1 - Hypo-osmolality and hyponatremia Status: Acute Assessment and Plan: The patient is severely dehydrated. Sodium level of 124 on admission previous level was normal Nephrology on board Hyponatremia has resolved (3) Kidney lesion: Code(s): N28.9 - Disorder of kidney and ureter, unspecified Status: Acute Assessment and Plan: Unable to do a CT with contrast at this time. Please re-evaluate kidney lesion and possibly get a CT with contrast when patient's renal function has improved MRI abdomen showed left renal region of concern corresponding to 1.6 cm simple renal cyst. (4) Essential hypertension: Code(s): I10 - Essential (primary) hypertension Status: Acute Assessment and Plan: Hold lisinopril due to the acute renal failure P.r.n. hydralazine Plan indeterminate proximal 1.6 cm hypoattenuating lesion of the posterior mid to upper left kidney this should be followed up as an outpatient basis. 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 Stool culture negative to date. C diff came back negative. Ct abdomen with fluid levels s/o ongoing diarrhea. On Imodium p.r.n. Hypophosphatemia: Replace Subjective Date/time seen: 01/18/23 08:23 Interval history: This is a 77-year-old female patient who has been undergoing chemotherapy for breast cancer.? She does see Dr. Pascual.? She stated that the last time she had chemotherapy was 2 weeks ago.? The patient initially was on a different type of chemotherapy and 2 weeks ago she had stated that she had a new type of chemotherapy.? The patient was recently found to have grade 2 hers 60% positive.? Patient has had history of lung back.? The patient stated that she will need to go through chemotherapy for at least 1 year and decided to have a Port-A-Cath placed.? The patient had started her 1st cycle on 11/14 which D.C. regimen on November 22, 2022.? Then the patient was found to be Hurst positive.? The patient has had multiple episodes of diarrhea as well as nausea.? The patient denies any fever chills.? The patient has had no prior history of any kidney disease.? Today her sodium was 124, chloride 92, anion gap 18, BUN 76 and creatinine 9.5.? GFR is 4 her most recent labs were in 01/02/2023 and her kidney function was within normal limits at that time.? Her potassium is within normal limits.? Abdominal pelvis CT was read as the followingSmall and large bowel air-fluid levels without obstruction, consistent with clinical complaint of diarrhea Small sliding hia
--- NOTE | 2023-01-18 08:53 | PC.NURSE ---
Spoke to forrest Baez regarding Potassium Phosphate infusion to clarify if it can be administered through a peripheral line. She stated that it can be administered peripherally.
[2023-01-18] MEDS: ATORVASTATIN 40 MG TABLET PO (08:58)
[2023-01-18] MEDS: POTASSIUM PHOS,M-BASIC-D-BASIC 20 MMOL in SODIUM CHLORIDE 0.9% IV 250 ML 64.17 MMOL IVPB (08:58)
[2023-01-18] MEDS: CALCIUM CARBONATE (OSCAL) 500 MG TABLET 1000 MG PO ×2 (08:58→16:49)
[2023-01-18] MEDS: CHOLECALCIFEROL 1,000 UNITS TABLET 2000 UNITS PO (08:59)
[2023-01-18] MEDS: SODIUM BICARBONATE TAB 650 MG TABLET PO ×2 (08:59→16:49)
[2023-01-18] MEDS: LOPERAMIDE HCL 2 MG CAPSULE PO (09:00)
--- NOTE | 2023-01-18 10:45 | P.PNNP_ITS ---
Progress Note: A&P Assessment and Plan (1) Acute kidney failure: Qualifiers: Acute renal failure type: unspecified Qualified Code(s): N17.9 - Acute kidney failure, unspecified Code(s): N17.9 - Acute kidney failure, unspecified Status: Acute Assessment and Plan: * WILMER * normal renal function/creatinine at baseline * evaluation to date noted: * urine electrolyte prerenal * CT imaging/renal ultrasound without obstruction * urine eosinophils negative * on lisinopril prior to admission * most likely due to dehydration from the nausea and vomiting. * gentle IVF hydration * She is eating again. In is normal. We can stop the IV fluids. * Patient is eager for discharge. Home okay from kidney standpoint. (2) Acute hyponatremia: Code(s): E87.1 - Hypo-osmolality and hyponatremia Status: Acute Assessment and Plan: * resolved * due to hypovolemia * urine sodium and creatinine indicative of prerenal azotemia * follow trend of sodium (3) Kidney lesion: Code(s): N28.9 - Disorder of kidney and ureter, unspecified Status: Acute Assessment and Plan: * as noted by CT imaging * no mention of this by renal ultrasound * Will check MRI with contrast while she is here. (4) Essential hypertension: Code(s): I10 - Essential (primary) hypertension Status: Acute Assessment and Plan: * Systolic 100-120. Will continue to follow. Subjective Date/time seen: 01/18/23 10:45 Interval history: patient feels better. No nausea or vomiting. Breathing okay. Exam Narrative: General: WD/WN female in NAD Heart: normal S1 and S2; no rub or gallop Lungs: clear to auscultation Abdomen: soft, nontender, nondistended, positive bowel sounds Extremities: no cyanosis or clubbing; no edema Skin: No rash Objective Data Vital Signs Vital Signs: Vital Signs - 24 hr 01/17/23 12:00 01/17/23 13:52 01/17/23 14:31 Temperature 98.0 F Pulse Rate 71 67 Respiratory Rate 16 Blood Pressure 126/52 L 126/80 Pulse Oximetry 100 01/17/23 16:00 01/17/23 20:59 01/17/23 20:15 Temperature 98 F Pulse Rate 81 78 78 Respiratory Rate 20 Blood Pressure 100/65 Pulse Oximetry 100 01/17/23 23:15 01/18/23 03:23 01/18/23 04:00 Temperature 97.1 F L Pulse Rate 69 66 66 Respiratory Rate 20 Blood Pressure 125/70 Pulse Oximetry 100 Intake/Output Intake/Output: Intake & Output 01/15/23 01/16/23 01/17/23 01/18/23 23:59 23:59 23:59 23:59 Intake Total 1950 2990 1900 390 Output Total 250 100 Balance 1700 2890 1900 390 Meds/Results Medications: Active Medications Generic Name Dose Route Start Last Admin Trade Name Freq PRN Reason Stop Dose Admin Atorvastatin Calcium 40 mg 01/16/23 09:00 01/18/23 08:58 Atorvastatin 40 Mg Tablet PO 40 mg QAM MIHAELA Administration Calcium Carbonate 1,000 mg 01/16/23 09:00 01/18/23 08:58 Calcium Carbonate (Oscal) 500 Mg Tablet PO 02/15/23 08:59 1,000 mg BID MIHAELA Administration
--- NOTE | 2023-01-18 10:45 | PM.PNNEP ---
Progress Note: A&P Assessment and Plan (1) Acute kidney failure: Qualifiers: Acute renal failure type: unspecified Qualified Code(s): N17.9 - Acute kidney failure, unspecified Code(s): N17.9 - Acute kidney failure, unspecified Status: Acute Assessment and Plan: WILMER normal renal function/creatinine at baseline evaluation to date noted: urine electrolyte prerenal CT imaging/renal ultrasound without obstruction urine eosinophils negative on lisinopril prior to admission most likely due to dehydration from the nausea and vomiting. gentle IVF hydration She is eating again. In is normal. We can stop the IV fluids. Patient is eager for discharge. Home okay from kidney standpoint. (2) Acute hyponatremia: Code(s): E87.1 - Hypo-osmolality and hyponatremia Status: Acute Assessment and Plan: resolved due to hypovolemia urine sodium and creatinine indicative of prerenal azotemia follow trend of sodium (3) Kidney lesion: Code(s): N28.9 - Disorder of kidney and ureter, unspecified Status: Acute Assessment and Plan: as noted by CT imaging no mention of this by renal ultrasound Will check MRI with contrast while she is here. (4) Essential hypertension: Code(s): I10 - Essential (primary) hypertension Status: Acute Assessment and Plan: Systolic 100-120. Will continue to follow. Subjective Date/time seen: 01/18/23 10:45 Interval history: patient feels better. No nausea or vomiting. Breathing okay. Exam Narrative: General: WD/WN female in NAD Heart: normal S1 and S2; no rub or gallop Lungs: clear to auscultation Abdomen: soft, nontender, nondistended, positive bowel sounds Extremities: no cyanosis or clubbing; no edema Skin: No rash Objective Data Vital Signs Vital Signs: Vital Signs - 24 hr 01/17/23 12:00 01/17/23 13:52 01/17/23 14:31 Temperature 98.0 F Pulse Rate 71 67 Respiratory Rate 16 Blood Pressure 126/52 L 126/80 Pulse Oximetry 100 01/17/23 16:00 01/17/23 20:59 01/17/23 20:15 Temperature 98 F Pulse Rate 81 78 78 Respiratory Rate 20 Blood Pressure 100/65 Pulse Oximetry 100 01/17/23 23:15 01/18/23 03:23 01/18/23 04:00 Temperature 97.1 F L Pulse Rate 69 66 66 Respiratory Rate 20 Blood Pressure 125/70 Pulse Oximetry 100 Intake/Output Intake/Output: Intake & Output 01/15/23 01/16/23 01/17/23 01/18/23 23:59 23:59 23:59 23:59 Intake Total 1950 2990 1900 390 Output Total 250 100 Balance 1700 2890 1900 390 Meds/Results Medications: Active Medications Generic Name Dose Route Start Last Admin Trade Name Freq PRN Reason Stop Dose Admin Atorvastatin Calcium 40 mg 01/16/23 09:00 01/18/23 08:58 Atorvastatin 40 Mg Tablet PO 40 mg QAM MIHAELA Administration Calcium Carbonate 1,000 mg 01/16/23 09:00 01/18/23 08:58 Calcium Carbonate (Oscal) 500 Mg Tablet PO 02/15/23 08:59 1,000 mg BID MIHAELA Administration Hydralazine HCl 10 mg 01/15/23 19:06 Hydralazine Hcl 20 Mg/Ml Vial IV PUSH Q8H PRN Blood Pressure - High Sodium Chloride 1,000 mls @ 50 mls/hr 01/16/23 16:45 01/17/23 14:26 Normal Saline Iv IV CONT 50 mls/hr .Q20H MIHAELA Administration Potassium Phosphate 20 mmol/ 256.6667 mls @ 64.167 mls/hr 01/18/23 08:24 01/18/23 08:58 Sodium Chloride IVPB 01/18/23 12:23 64.17 mls/hr ONCE ONE Administration Loperamide HCl 2 mg 01/17/23 12:22 01/18/23 09:00 Loperamide Hcl 2 Mg Capsule PO 2 mg PRN PRN Administration Diarrhea Ondansetron HCl 4 mg 01/18/23 03:13 01/18/23 03:20 Ondansetron Inj 4 Mg/2 Ml Vial IV PUSH 4 mg Q4H PRN Administration Nausea And Vomiting Sodium Bicarbonate 650 mg 01/17/23 09:00 01/18/23 08:59 Sodium Bicarbonate Tab 650 Mg Tablet PO 650 mg BID MIHAELA Administration Vitamin D 2,000 units 01/16/23 09:0
[2023-01-18 15:24] VITALS: BP 149/63; PULSE 75; RESP 17; TEMP 36.5; O2SAT 100
[2023-01-18 20:33] VITALS: BP 151/78; PULSE 77; RESP 20; TEMP 36.7; O2SAT 98
[2023-01-19 05:27] LABS: Basophils Absolute Auto 0.1 K/mm3 (0.0-0.1); Basophils Percent Auto 1.3 % (0.2-1.2); Eosinophils Percent Auto 0.6 % (0-4.4); Hemoglobin 9.9 g/dL (12.0-15.0); Immature Granulocyte Absolute 0.21 K/mm3 (0.00-0.031); Immature Granulocyte Percent A 3.1 % (0-0.5); Lymphocytes Absolute Auto 1.35 K/mm3 (0.9-3.2); Lymphocytes Percent Auto 19.7 % (18.3-44.2); Mean Corpuscular HGB Conc 34.1 g/dl (32-36); Mean Corpuscular Hemoglobin 30.2 pg (26-34); Mean Corpuscular Volume 88.4 fl (80-100); Mean Platelet Volume 8.5 fl (7.4-10.4); Monocytes Absolute Auto 0.6 K/mm3 (0.1-0.6); Monocytes Percent Auto 9.2 % (2.6-8.5); Neutrophils Absolute Auto 4.5 K/mm3 (1.3-6.7); Neutrophils Percent Auto 66.1 % (45.5-73.1); Platelet Count Result 222 k/mm3 (150-375); Red Blood Count 3.28 M/mm3 (4.2-5.4); Red Cell Distribution Width 13.6 % (11.5-14.5); White Blood Count 6.9 K/mm3 (4.5-10.0)
[2023-01-19 05:39] LABS: Alanine Aminotransferase 23 U/L (6-35); Albumin Level 3.2 g/dL (3.5-5.1); Alkaline Phosphatase 79 U/L (38-126); Anion Gap 3 mmol/L (8-16); Aspartate Amino Transferase 30 U/L (14-36); Bilirubin,Total 0.6 mg/dL (0.2-1.3); Blood Urea Nitrogen 6 mg/dL (7-17); Calcium 8.5 mg/dL (8.4-10.2); Carbon Dioxide 22 mmol/L (22-30); Chloride 108 mmol/L (98-107); Estimated CRCL calculation 56 ml/min; Estimated Glomerular Filt Rate > 60; Glucose 92 mg/dL (65-110); Magnesium 1.5 mg/dL (1.6-2.3); Phosphorus 2.8 mg/dL (2.5-4.5); Potassium 3.7 mmol/L (3.4-5.0); Sodium 133 mmol/L (137-145)
[2023-01-19 06:00] VITALS: BP 144/65; PULSE 66; RESP 20; TEMP 36.6; O2SAT 99
[2023-01-19] MEDS: ATORVASTATIN 40 MG TABLET PO (08:05)
[2023-01-19] MEDS: CALCIUM CARBONATE (OSCAL) 500 MG TABLET 1000 MG PO (08:06)
[2023-01-19] MEDS: SODIUM BICARBONATE TAB 650 MG TABLET PO (08:06)
[2023-01-19] MEDS: CHOLECALCIFEROL 1,000 UNITS TABLET 2000 UNITS PO (08:06)
--- NOTE | 2023-01-19 09:07 | PM.IMPN ---
Progress Note: A&P Assessment and Plan (1) Acute kidney failure: Qualifiers: Acute renal failure type: unspecified Qualified Code(s): N17.9 - Acute kidney failure, unspecified Code(s): N17.9 - Acute kidney failure, unspecified Status: Acute Assessment and Plan: Creatinine 9.5 on admission. BUN of 76 Metabolic acidosis carbon dioxide of 14 initially with high anion gap with hyponatremia Nephrology has been consulted Patient reported diarrhea Renal ultrasound with indeterminate approximately 1.6 cm hypoattenuating lesion of the posterior mid to upper left kidney; further evaluation with CT with contrast However the patient has acute kidney injury and cannot receive a CT with contrast at this time. Please re-evaluate at a later date. Abdomen performed today reveals 1.6 cm simple renal cyst for the lesion of concern. Continue IV hydration as ordered CK level 239 mildly elevated Lipase elevated at 574 The patient has been getting chemotherapy with the side effects of acute kidney disease . The patient also has had nausea vomiting and diarrhea. Renal failure has resolved. Mild metabolic acidosis persist non-anion gap likely due to underlying diarrhea/RTA due to renal failure. Stopped IV fluid Acidosis is resolved. Stop bicarb Replace magnesium today Phosphorous is normal (2) Acute hyponatremia: Code(s): E87.1 - Hypo-osmolality and hyponatremia Status: Acute Assessment and Plan: The patient is severely dehydrated. Sodium level of 124 on admission previous level was normal Nephrology on board Hyponatremia has resolved (3) Kidney lesion: Code(s): N28.9 - Disorder of kidney and ureter, unspecified Status: Acute Assessment and Plan: Unable to do a CT with contrast at this time. Please re-evaluate kidney lesion and possibly get a CT with contrast when patient's renal function has improved MRI abdomen showed left renal region of concern corresponding to 1.6 cm simple renal cyst. (4) Essential hypertension: Code(s): I10 - Essential (primary) hypertension Status: Acute Assessment and Plan: Hold lisinopril due to the acute renal failure P.r.n. hydralazine Plan indeterminate proximal 1.6 cm hypoattenuating lesion of the posterior mid to upper left kidney this should be followed up as an outpatient basis. 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 Stool culture negative to date. C diff came back negative. Ct abdomen with fluid levels s/o ongoing diarrhea. On Imodium p.r.n. Hypophosphatemia: replaced Subjective Date/time seen: 01/19/23 09:07 Interval history: This is a 77-year-old female patient who has been undergoing chemotherapy for breast cancer.? She does see Dr. Pascual.? She stated that the last time she had chemotherapy was 2 weeks ago.? The patient initially was on a different type of chemotherapy and 2 weeks ago she had stated that she had a new type of chemotherapy.? The patient was recently found to have grade 2 hers 60% positive.? Patient has had history of lung back.? The patient stated that she will need to go through chemotherapy for at least 1 year and decided to have a Port-A-Cath placed.? The patient had started her 1st cycle on 11/14 which D.C. regimen on November 22, 2022.? Then the patient was found to be Hurst positive.? The patient has had multiple episodes of diarrhea as well as nausea.? The patient denies any fever chills.? The patient has had no prior history of any kidney disease.? Today her sodium was 124, chloride 92, anion gap 18, BUN 76 and creatinine 9.5.? GFR is 4 her most recent labs were in 01/02/2023 and her kidney function was within normal limits at that time.? Her potassium is within normal limits.? Abdominal pelvis CT was read as the followingSmall and large bowel air-fluid levels without obstru
--- NOTE | 2023-01-19 10:10 | PM.PNNEP ---
Progress Note: A&P Assessment and Plan (1) Acute kidney failure: Qualifiers: Acute renal failure type: unspecified Qualified Code(s): N17.9 - Acute kidney failure, unspecified Code(s): N17.9 - Acute kidney failure, unspecified Status: Acute Assessment and Plan: WILMER normal renal function/creatinine at baseline evaluation to date noted: urine electrolyte prerenal CT imaging/renal ultrasound without obstruction urine eosinophils negative on lisinopril prior to admission creatinine is down to normal off IV fluid eating and drinking well (2) Acute hyponatremia: Code(s): E87.1 - Hypo-osmolality and hyponatremia Status: Acute Assessment and Plan: sodium was normal yesterday. Today the sodium is barely low at 133. Most likely the patient will have ongoing issues with hyponatremia but hopefully will just be mild. I told her that in general she should drink only if she is thirsty at not if she is not. when I said this, she said that her family pushes her to drink lots of fluids so she drinks 2-4 quarts of water per day. I told her that on a day-to-day basis she should just drink what her body is telling her to. Admittedly, some people walk around thirsty and chronically dehydrated just because of habit. So she should probably drink about 3 pt of water per day at least. But beyond this only if she is thirsty. When she gets her chemo the doctors tell her to drink lots of fluid as well. This would be okay to do it they say for 2 or 3 days and then after that the chemo is usually gone. (3) Kidney lesion: Code(s): N28.9 - Disorder of kidney and ureter, unspecified Status: Acute Assessment and Plan: as noted by CT imaging no mention of this by renal ultrasound MRI shows that the lesion is only a cyst. She also has a small subcentimeter AML. Long discussion with the patient (4) Essential hypertension: Code(s): I10 - Essential (primary) hypertension Status: Acute Assessment and Plan: Systolic 100-140 Will continue to follow. Subjective Date/time seen: 01/19/23 10:10 Interval history: patient feels better. No nausea or vomiting. Breathing okay. eating okay. Exam Narrative: General: WD/WN female in NAD Heart: normal S1 and S2; no rub or gallop Lungs: clear to auscultation Abdomen: soft, nontender, nondistended, positive bowel sounds Extremities: no cyanosis or clubbing; no edema Skin: No rash Or subcu nodules Objective Data Vital Signs Vital Signs: Vital Signs - 24 hr 01/18/23 15:24 01/18/23 20:00 01/18/23 20:33 Temperature 97.7 F 98.1 F Pulse Rate 75 77 Respiratory Rate 17 20 Blood Pressure 149/63 H 151/78 H Pulse Oximetry 100 98 Oxygen Delivery Room Air 01/19/23 06:00 Temperature 97.8 F Pulse Rate 66 Respiratory Rate 20 Blood Pressure 144/65 H Pulse Oximetry 99 Oxygen Delivery Intake/Output Intake/Output: Intake & Output 01/16/23 01/17/23 01/18/23 01/19/23 23:59 23:59 23:59 23:59 Intake Total 2990 1900 1810 100 Output Total 100 Balance 2890 1900 1810 100 Meds/Results Medications: Active Medications Generic Name Dose Route Start Last Admin Trade Name Freq PRN Reason Stop Dose Admin Atorvastatin Calcium 40 mg 01/16/23 09:00 01/19/23 08:05 Atorvastatin 40 Mg Tablet PO 40 mg QAM MIHAELA Administration Calcium Carbonate 1,000 mg 01/16/23 09:00 01/19/23 08:06 Calcium Carbonate (Oscal) 500 Mg Tablet PO 02/15/23 08:59 1,000 mg BID MIHAELA Administration Hydralazine HCl 10 mg 01/15/23 19:06 Hydralazine Hcl 20 Mg/Ml Vial IV PUSH Q8H PRN Blood Pressure - High Magnesium Sulfate 2 gm in 50 mls @ 50 mls/hr 01/19/23 09:30 Magnesium Sulf 2 Gm/Water 50ml IVPB 01/19/23 10:29 ONCE ONE Loperamide HCl 2 mg 01/17/23 12:22 01/18/23 09:00 Loperamide Hcl 2 Mg Capsule PO 2 mg
[2023-01-19] MEDS: MAGNESIUM SULF 2 GM/WATER 50ML 2 GM/50 ML BAG IVPB (10:50)
--- NOTE | 2023-01-19 11:48 | PM.DS ---
DS: Admitting Diagnosis Discharge Date 01/19/2023 Admitting Diagnosis Diarrhea nausea vomiting DS: Discharge Diagnosis Discharge Diagnosis (1) Acute kidney failure: Qualifiers: Acute renal failure type: unspecified Qualified Code(s): N17.9 - Acute kidney failure, unspecified Code(s): N17.9 - Acute kidney failure, unspecified Status: Acute (2) Acute hyponatremia: Code(s): E87.1 - Hypo-osmolality and hyponatremia Status: Acute (3) Kidney lesion: Code(s): N28.9 - Disorder of kidney and ureter, unspecified Status: Acute (4) Essential hypertension: Code(s): I10 - Essential (primary) hypertension Status: Acute DS: Summary Hospital Course Hospital Course: # acute kidney failure: ? Creatinine 9.5 on admission.? BUN of 76 Metabolic acidosis carbon dioxide of 14? initially with high anion gap with hyponatremia Nephrology has been consulted Patient reported diarrhea and severely dehydrated Renal ultrasound with indeterminate approximately 1.6 cm hypoattenuating lesion of the posterior mid to upper left kidney; further evaluation with CT with contrast However the patient has acute kidney injury and cannot receive a CT with contrast at this time. During the hospital stay MRI abdomen performed today reveals 1.6 cm simple renal cyst for the lesion of concern. See was continued on IV hydration CK level 239 mildly elevated on admission Lipase elevated at 574 The patient has been getting chemotherapy with the side effects of acute kidney disease .? The patient also has had nausea vomiting and diarrhea related to the chemotherapy. Stool studies were performed which came back negative. Renal failure has resolved with hydration.? Metabolic acidosis also resolved during the hospital stay. # acute hyponatremia: The patient is severely dehydrated.? Sodium level of 124 on admission previous level was normal Nephrology on board Hyponatremia has resolved # kidney lesion: Unable to do a CT with contrast at this time.? Please re-evaluate kidney lesion and possibly get a CT with contrast when patient's renal function has improved MRI abdomen showed left renal region of concern corresponding to 1.6 cm simple renal cyst. # essential hypertension: Hold lisinopril due to the acute renal failure P.r.n. hydralazine Lisinopril discontinued at discharge. Follow-up with PCP for restart/alternative agent # Left? 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 Stool culture negative to date.? C diff came back negative.? Ct abdomen with fluid levels s/o ongoing diarrhea.? On Imodium p.r.n. # hypophosphatemia: ? replaced Time Spent with Patient Time attestation: Total time spent providing and/or coordinating discharge services: 45 minutes Exam Narrative: GENERAL: The patient is well developed, not in acute distress HEENT: Nonicteric sclerae, PERRLA, EOMI. Oropharynx clear. Moist mucous membranes. Conjunctivae appear well perfused. CHEST: Chest wall is nontender. HEART: Regular rate and rhythm without murmur, rubs, or gallops LUNGS: Clear to auscultation bilaterally. no respiratory distress ABDOMEN: Soft, positive bowel sounds, non-tender, no organomegaly. SKIN: No rash, no excessive bruising, petechiae, or purpura. NEUROLOGIC: Cranial nerves II-XII intact, alert and oriented x 3, no gross motor deficits EXTREMITIES: no edema, cyanosis or clubbing DS: Data Data Completed and Pending Labs on day of discharge: Labs from last 24 hours 01/19/23 01/19/23 05:20 05:20 WBC 6.9 RBC 3.28 L Hgb 9.9 L Hct 29.0 L MCV 88.4 MCH 30.2 MCHC 34.1 RDW 13.6 Plt Count 222 MPV 8.5 Immature Gran % (Auto) 3.1 H Neut % (Auto) 66.1 Lymph % (Auto) 19.7 [place] % (Auto) 9.2 H Eos % (Auto) 0.6 Baso % (Auto) 1.3 H Lymph # (Auto)
[2023-01-19 12:33] LABS: Myoglobin, Urine 41 mcg/L (<28)
[2023-01-19 21:04] LABS: Osmolality, Urine 481 mOsm/kg (50-1200)
[2023-01-22 15:39] LABS: Chloride Rand Ur 93 mmol/L (32-290); Chloride/Creatinine Rand Ur 93 (38-318); Creatinine Random Urine 100 mg/dL (20-275)
== END 2023-01-19 12:46 | disposition home or self-care (01) | DRG 683 ==
LOC: ANHED 09:33 → ANH2MED 13:40
PROVIDERS: Internal Medicine; Internal Medicine Nephrology; Nurse Practitioner; Admitting Provider Internal Medicine; Emergency Provider Physician Assistant; Visit Provider Internal Medicine
DX: N17.9 Acute kidney failure, unspecified (principal); E87.1 Hypo-osmolality and hyponatremia; E87.20 Acidosis, unspecified; N28.9 Disorder of kidney and ureter, unspecified; I10 Essential (primary) hypertension; E86.0 Dehydration; D17.71 Benign lipomatous neoplasm of kidney; N20.0 Calculus of kidney; R19.7 Diarrhea, unspecified; E83.39 Other disorders of phosphorus metabolism; C50.411 Malignant neoplasm of upper-outer quadrant of right female breast; E78.2 Mixed hyperlipidemia; K44.9 Diaphragmatic hernia without obstruction or gangrene; Z90.49 Acquired absence of other specified parts of digestive tract; Z98.42 Cataract extraction status, left eye; Z98.41 Cataract extraction status, right eye
CPT/HCPCS: 36415; 74176; 74183; 76775; 80048; 80053; 80069; 81001; 81050; 82436; 82550; 82570; 83690; 83735; 83874; 83935; 84100; 84156; 84300; 84540; 85025; 85999; 87045; 87177; 87209; 87269; 87272; 87427; 87493; 89055; 96361; 96374; 96375; 99285; A9270; A9577; G0378; J1200; J2405; J2765; J3475; J3480; J7030; J7040; J7050

== ENCOUNTER 2023-02-24 10:18 | Inpatient (IN) | payer MEDICARE, SELFPAY ==
[2023-02-24] VITALS (13 sets, daily range): BP systolic 81–141; BP diastolic 44–60; PULSE 71–87; RESP 12–20; TEMP 36.1–36.8; O2SAT 98–100; BMI 30.6
--- NOTE | 2023-02-24 10:52 | ED.GENADULT ---
HPI - General Adult General Chief complaint: Nausea/Vomiting/Diarrhea <Pola Kumar PA-C - Last Filed: 02/24/23 18:16> Stated complaint: chemotherapy with N/V <Pola Kumar PA-C - Last Filed: 02/24/23 18:16> Time Seen by Provider: 02/24/23 10:45 <Pola Kumar PA-C - Last Filed: 02/24/23 18:16> Source: patient <SARAH Sahni Last Filed: 02/24/23 18:16> Mode of arrival: ambulatory <SARAH Sahni Last Filed: 02/24/23 18:16> Limitations: no limitations <Pola Kumar PA-C - Last Filed: 02/24/23 18:16> History of Present Illness HPI narrative: This is a 77-year-old female who is currently undergoing chemotherapy treatment for breast cancer who presents to the ED with chief complaint of nausea vomiting and diarrhea. Diarrhea has been going on for the past 5 days. Reports 3 days of vomiting. She states this happened a few weeks ago as well. Denies any hematochezia or hematemesis. Denies fevers, chills, chest pain, back pain, shortness of breath, abdominal pain, LOC. She states she tried 1 Zofran ODT prior to arrival with minimal relief. Also tried loperamide at home with no relief. She reports a similar episode of this about a month ago in which she was admitted to this hospital for WILMER and dehydration Initial vitals BP at 88/44, not tachycardic. <Pola Kumar PA-C - Last Filed: 02/24/23 18:16> Related Data Home medications: Home Medications Medication Instructions Recorded Confirmed cholecalciferol (vitamin D3) 50 100 mcg PO DAILY 06/27/21 02/24/23 mcg (2,000 unit) capsule calcium 600 mg capsule 1,200 mg PO BID 11/19/22 02/24/23 atorvastatin 40 mg tablet 40 mg PO QAM 01/15/23 02/24/23 ferrous sulfate 325 mg (65 mg 325 mg PO DAILY 02/14/23 02/24/23 iron) tablet <SARAH Sahni Last Filed: 02/24/23 18:16> Allergies/adverse reactions: Allergies Allergy/AdvReac Type Severity Reaction Status Date / Time No Known Allergies Allergy Verified 02/24/23 10:19 <Pola Kumar PA-C - Last Filed: 02/24/23 18:16> Review of Systems Review of Systems: CONSTITUTIONAL: Denies fever, chills, or sweats. EYES: Denies visual changes, redness, or discharge. ENT: Denies rhinorrhea, congestion, sore throat, or otalgia. CARDIOVASCULAR: Denies chest pain, palpitations, or edema. RESPIRATORY: Denies cough or dyspnea. GASTROINTESTINAL: See HPI GENITOURINARY: Denies dysuria or hematuria. SKIN: Denies rash or itching. MUSCULOSKELETAL: Denies back pain, joint pain, or myalgia. NEUROLOGIC: Denies headache, numbness, dizziness, or weakness. PSYCHIATRIC: Denies anxiety or depression. <SARAH Sahni Last Filed: 02/24/23 18:16> [facility] Past Medical History Medical History: Medical History Essential hypertension Malignant neoplasm of upper-outer quadrant of right female breast Mixed hyperlipidemia Port-A-Cath in place <Pola Kumar PA-C - Last Filed: 02/24/23 18:16> Surgical History Surgical History: Surgical History H/O cataract extraction H/O lumpectomy Hx of cholecystectomy Status post laparoscopic appendectomy <Pola Kumar PA-C - Last Filed: 02/24/23 18:16> Family History Family History: Family History Sibling Depression Family history of malignant neoplasm of breast in first degree relative Mother Family history of malignant neoplasm of breast in first degree relative <SARAH Sahni Last Filed: 02/24/23 18:16> Social History Social History: Social History Social History: She is and has 1 child . 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 code status full code Smoking status: Never smoker Alcohol intake: current Alcoho
[2023-02-24] MEDS: SODIUM CHLORIDE 0.9% IV 2,000 ML 999 ML IV CONT (10:59)
[2023-02-24] MEDS: ONDANSETRON INJ 4 MG/2 ML VIAL IV PUSH (11:00)
[2023-02-24 11:07] LABS: Basophils Percent Auto 1.3 % (0.2-1.2); Hematocrit 33.8 % (37.0-47.0); Hemoglobin 11.6 g/dL (12.0-15.0); Immature Granulocyte Absolute 0.01 K/mm3 (0.00-0.031); Immature Granulocyte Percent A 0.4 % (0-0.5); Lymphocytes Absolute Auto 0.82 K/mm3 (0.9-3.2); Lymphocytes Percent Auto 35.7 % (18.3-44.2); Mean Corpuscular HGB Conc 34.3 g/dl (32-36); Mean Corpuscular Hemoglobin 30.2 pg (26-34); Mean Platelet Volume 9.9 fl (7.4-10.4); Monocytes Absolute Auto 0.9 K/mm3 (0.1-0.6); Monocytes Percent Auto 38.7 % (2.6-8.5); Neutrophils Absolute Auto 0.6 K/mm3 (1.3-6.7); Neutrophils Percent Auto 23.9 % (45.5-73.1); Platelet Count Result 259 k/mm3 (150-375); Red Blood Count 3.84 M/mm3 (4.2-5.4); Red Cell Distribution Width 15.2 % (11.5-14.5); White Blood Count 2.3 K/mm3 (4.5-10.0)
[2023-02-24 11:27] LABS: Alanine Aminotransferase 27 U/L (6-35); Albumin Level 4.5 g/dL (3.5-5.1); Alkaline Phosphatase 109 U/L (38-126); Anion Gap 18 mmol/L (8-16); Aspartate Amino Transferase 29 U/L (14-36); Bilirubin,Total 1.2 mg/dL (0.2-1.3); Blood Urea Nitrogen 23 mg/dL (7-17); Calcium 9.8 mg/dL (8.4-10.2); Carbon Dioxide 17 mmol/L (22-30); Chloride 95 mmol/L (98-107); Estimated CRCL calculation 12 ml/min; Estimated Glomerular Filt Rate 13; Glucose 128 mg/dL (65-110); Potassium 3.1 mmol/L (3.4-5.0); Sodium 130 mmol/L (137-145)
[2023-02-24] MEDS: POTASSIUM CHLORIDE INJ 40 MEQ in SODIUM CHLORIDE 0.9% IV 500 ML 130 MEQ IVPB (12:39)
--- NOTE | 2023-02-24 12:39 | ECG_ITS ---
Measurements Intervals [place] Rate: 69 P: 23 SC: 201 QRS: -4 QRSD: 76 T: -63 QT: 417 QTc: 447 Interpretive Statements SINUS RHYTHM MODERATE T-WAVE ABNORMALITY, CONSIDER ANTEROLATERAL ISCHEMIA [-0.1+ mV T WAVE IN V3- V6] MODERATE T-WAVE ABNORMALITY, CONSIDER INFERIOR ISCHEMIA [-0.1+ mV T WAVE IN II/aVF] NO PREVIOUS ECG AVAILABLE FOR COMPARISON Electronically Signed On 02-24-2023 19:23:55 CDT by Mercy Rubio M.D.
[2023-02-24 13:32] LABS: Troponin I < 0.012 ng/mL (0.000-0.034)
[2023-02-24 14:59] LABS: Appearance Urine Turbid (Clear); Bacteria Urine None Seen /hpf; Bilirubin Urine 2+ (Negative); Blood Urine Negative (Negative); Color Urine Dark Yellow (Yellow); Glucose Urine UA Negative (Negative); Ketones Urine 1+ mg/dL (Negative); Leukocyte Esterase Ur Trace LEU/UL (Negative); Mucus Urine Present /lpf; Nitrate Urine Negative (Negative); Non Pathogenic Casts >20; Protein Urine 2+ mg/dL (Negative); Specific Grav Ur 1.019 (1.001-1.035); Squamous Epithelial Cell Urine Few /hpf (Few); pH Urine 5.5 (5.0-9.0)
[2023-02-24 15:10] LABS: Add Urine Microscopic? YES
[2023-02-24 15:46] LABS: Magnesium 2.2 mg/dL (1.6-2.3)
[2023-02-24] MEDS: MAGNESIUM SULF 1 GM/D5W 100 ML 1 GM/100 ML BAG IVPB (15:51)
--- NOTE | 2023-02-24 16:23 | PM.IMHP ---
H&P: HPI History of Present Illness Date/Time: 02/24/23 16:23 Chief Complaint: Nausea vomiting diarrhea Narrative: This is a very pleasant 77-year-old female patient who unfortunately is undergoing chemotherapy for her breast cancer. The patient tolerated her last chemotherapy very well but the previous 1 she had the same situation. The patient came in with nausea vomiting and diarrhea. The diarrhea has been going on for 5 days now. She has had 3 days of vomiting as well. She denies any blood in her emesis or her stool. She has no fever chills. No complaints of any abdominal pain the patient did try her Zofran 0 DT prior to arrival with minimal relief. The patient had acute kidney injury her last admission but then it resolved after fluids. Her creatinine is now 3.5 with a previous value of 0.8 on 02/14/2023. The patient had an extensive workup by Nephrology her last admission. Her potassium is 3.1. Chloride 95. Her blood sugars 128. Troponin is negative. The patient was given IV fluids, Zofran, potassium and magnesium. The patient is being admitted to inpatient status on the date of service of 02/24/2023. Review of Systems Review of Systems: All systems reviewed & are unremarkable except as noted in HPI and below Constitutional: Constitutional: Reports as per HPI and Reports no additional constitutional complaints Eyes: Eyes: Reports as per HPI and Reports no additional eye complaints ENT: Reports system reviewed and no additional complaints, except as documented and Reports Normal hearing present Cardiovascular: Cardiovascular: Reports no additional cardiovascular complaints Respiratory: Respiratory: Reports no additional respiratory complaints and Reports no additional respiratory complaints Gastrointestinal: Gastrointestinal: Reports as per HPI and Reports no additional gastrointestinal complaints Musculoskeletal: Musculoskeletal: Reports no additional musculoskeletal complaints Integumentary/Breasts: Skin/Breast: Reports system reviewed and no additional complaints, except as docu and Reports as per HPI Neurologic: Reports system reviewed and no additional complaints, except as documented, Reports as per HPI and Reports Normal hearing present Psychiatric: Psychiatric: Reports no additional psychiatric complaints and Reports as per HPI Endocrine: Endocrine: Reports no additional endocrine complaints Hematologic/Lymphatic: Hematologic/Lymphatic: Reports no additional hematologic/lymphatic complaints Allergic/Immunologic: Allergic/Immunologic: Reports no additional allergic/immunologic complaints PMFSH Past Medical History Medical History Essential hypertension Malignant neoplasm of upper-outer quadrant of right female breast Mixed hyperlipidemia Port-A-Cath in place Surgical History Surgical History H/O cataract extraction H/O lumpectomy Hx of cholecystectomy Status post laparoscopic appendectomy Family History Family History Sibling Depression Family history of malignant neoplasm of breast in first degree relative Mother Family history of malignant neoplasm of breast in first degree relative Social History Social History (Updated 02/24/23 @ 21:23 by Ashley Hargrove NP) Social History: She is and has 1 child . 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 code status full code Smoking status: Never smoker Alcohol intake: current Alcohol use details: social Substance use: never Substance use type: does not use Lack of Transportation: No Lack of Food: Never True Current Housing: I Have Housing Concerned About Future Housing: No Difficulty Paying Gas/Electric Bills: No Difficulty Paying for Meds: No Currently Unemployed: No Education: Associate Degr
--- NOTE | 2023-02-24 16:40 | ADMGEN ---
This patient, Eve Brink, was admitted to Medical Room 349-01. Patient/family oriented to hospital policies and general routines including ID bracelet, bed and alarms, visiting hours, pain management, procedures, bathroom and other care routines, personal items, smoking policy, room service/diet, and visiting hours. Information on how to activate the Rapid Response Team has been discussed. Patient/Family are encouraged to report perceived risks to care and to ask questions if they do not understand what they are told or what they should do.
[2023-02-24] MEDS: SODIUM CHLORIDE 0.9% IV 1,000 ML 125 ML IV CONT (17:54)
[2023-02-25] VITALS (9 sets, daily range): BP systolic 114–120; BP diastolic 58–62; PULSE 58–100; RESP 18–20; TEMP 36.6–36.7; O2SAT 100; BMI 30.6
[2023-02-25] MEDS: SODIUM CHLORIDE 0.9% IV 1,000 ML 125 ML IV CONT ×3 (02:02→20:43)
[2023-02-25] MEDS: LOPERAMIDE HCL 2 MG CAPSULE PO ×2 (02:02→09:33)
[2023-02-25 07:10] LABS: Basophils Percent Auto 0.5 % (0.2-1.2); Hematocrit 26.4 % (37.0-47.0); Hemoglobin 8.7 g/dL (12.0-15.0); Immature Granulocyte Absolute 0.02 K/mm3 (0.00-0.031); Lymphocytes Percent Auto 33.5 % (18.3-44.2); Mean Corpuscular Hemoglobin 29.4 pg (26-34); Mean Corpuscular Volume 89.2 fl (80-100); Mean Platelet Volume 8.9 fl (7.4-10.4); Monocytes Absolute Auto 0.8 K/mm3 (0.1-0.6); Monocytes Percent Auto 38.3 % (2.6-8.5); Neutrophils Absolute Auto 0.6 K/mm3 (1.3-6.7); Neutrophils Percent Auto 26.7 % (45.5-73.1); Platelet Count Result 199 k/mm3 (150-375); Red Blood Count 2.96 M/mm3 (4.2-5.4); Red Cell Distribution Width 15.2 % (11.5-14.5); White Blood Count 2.1 K/mm3 (4.5-10.0)
[2023-02-25 07:20] LABS: Alanine Aminotransferase 19 U/L (6-35); Albumin Level 3.1 g/dL (3.5-5.1); Alkaline Phosphatase 70 U/L (38-126); Anion Gap 5 mmol/L (8-16); Aspartate Amino Transferase 29 U/L (14-36); Bilirubin,Total 0.7 mg/dL (0.2-1.3); Blood Urea Nitrogen 20 mg/dL (7-17); Calcium 8.2 mg/dL (8.4-10.2); Carbon Dioxide 21 mmol/L (22-30); Chloride 109 mmol/L (98-107); Estimated CRCL calculation 24 ml/min; Estimated Glomerular Filt Rate 29; Glucose 94 mg/dL (65-110); Magnesium 2.3 mg/dL (1.6-2.3); Sodium 135 mmol/L (137-145)
[2023-02-25 07:21] LABS: Lactic Acid Reflex 0.6 mmol/L (0.7-2.0)
[2023-02-25 07:51] LABS: Burr Cells 2+ (NORMAL); Platelet Estimate Adequate (Adequate); Schistocytes None Seen (NORMAL)
[2023-02-25] MEDS: FERROUS SULFATE 324 MG TABLET PO (09:30)
[2023-02-25] MEDS: CHOLECALCIFEROL 1,000 UNITS TABLET 4000 UNITS PO (09:30)
[2023-02-25] MEDS: FAMOTIDINE 20 MG/2 ML VIAL IV PUSH ×2 (09:31→20:41)
[2023-02-25] MEDS: POTASSIUM CHLORIDE 20 MEQ TABLET 40 MEQ PO (09:33)
[2023-02-25] MEDS: POTASSIUM CHLORIDE INJ 40 MEQ in SODIUM CHLORIDE 0.9% IV 500 ML 130 MEQ IVPB (10:07)
--- NOTE | 2023-02-25 13:00 | PM.IMPN ---
Progress Note: A&P Assessment and Plan (1) Chemotherapy induced nausea and vomiting: Code(s): R11.2 - Nausea with vomiting, unspecified; T45.1X5A - Adverse effect of antineoplastic and immunosuppressive drugs, initial encounter Status: Acute Assessment and Plan: Continue with Zofran and IV fluids Imodium for the diarrhea Replace electrolytes as necessary Patient was given potassium and magnesium. (2) WILMER (acute kidney injury): Code(s): N17.9 - Acute kidney failure, unspecified Status: Acute Assessment and Plan: BUN/Cr 23/3.50 upon admission Currently 20/1.70 acute kidney failure worked up last month by Nephrology. CT imaging and renal ultrasound without obstruction. kidney lesion as noted by her CT imaging MRI shows that the lesion is only assist. AML Continue to hydrate and replace electrolytes as necessary. Continue to trend labs (3) Essential hypertension: Code(s): I10 - Essential (primary) hypertension Status: Acute Assessment and Plan: Blood pressure is currently 120/58. lisinopril stopped last admission due to her renal failure. P.r.n. hydralazine with parameters. Trend BP Adjust therapy as indicated (4) Malignant neoplasm of upper-outer quadrant of right female breast: Code(s): C50.411 - Malignant neoplasm of upper-outer quadrant of right female breast Status: Acute Assessment and Plan: Patient is receiving chemotherapy and will receive radiation Stable Continue outpatient care Time Spent With Patient Time: 53 minutes Time with patient: Greater than 35 minutes Subjective Date/time seen: 02/25/23 1300 Interval history: 02/25/23 1300 patient is lying in bed. She states that she is feeling okay. She does have some nausea without vomiting. She also stated that she had some liquid stools. She denies any current chest pain, shortness of breath, weakness, fatigue, abdominal pain. Patient did state that this usually happens after she gets her chemotherapy. Daughter is present as well. They have been trying many ways to get the patient to Over hydrate to Prevent this as happened multiple times. currently BUN and creatinine are trending down. 02/24/23? 16:23 This is a very pleasant 77-year-old female patient who unfortunately is undergoing chemotherapy for her breast cancer.? The patient tolerated her last chemotherapy very well but the previous 1 she had the same situation.? The patient came in with nausea vomiting and diarrhea.? The diarrhea has been going on for 5 days now.? She has had 3 days of vomiting as well.? She denies any blood in her emesis or her stool.? She has no fever chills.? No complaints of any abdominal pain the patient did try her Zofran 0 DT prior to arrival with minimal relief.? The patient had acute kidney injury her last admission but then it resolved after fluids.? Her creatinine is now 3.5 with a previous value of 0.8 on 02/14/2023.? The patient had an extensive workup by Nephrology her last admission.? Her potassium is 3.1.? Chloride 95.? Her blood sugars 128.? Troponin is negative.? The patient was given IV fluids, Zofran, potassium and magnesium.? The patient is being admitted to inpatient status on the date of service of 02/24/2023. Review of Systems Review of Systems: All systems reviewed & are unremarkable except as noted in HPI and below Exam Narrative: General: well-nourished, well-appearing 77-year-old female, sitting up in bed, comfortable, NARD Neuro: awake, alert and oriented x4, speech clear, no focal neuro deficits noted HEENMT: normocephalic, atraumatic, EOMI, sclerae anicteric, moist oral mucosa Respiratory: Clear to auscultation bilaterally without crackles, rhonchi or wheezes, nonlabored breathing Cardio: regular rate, regular rhythm with S1-S2 Abdomen: nondistended, normoactive bowel rony
[2023-02-25] MEDS: CENTRAL LINE FLUSH 10 ML IV PUSH ×2 (13:14→20:41)
[2023-02-26] VITALS: PULSE 60
[2023-02-26 04:00] VITALS: PULSE 79
[2023-02-26] MEDS: SODIUM CHLORIDE 0.9% IV 1,000 ML 125 ML IV CONT ×2 (05:28→08:46)
[2023-02-26 05:46] LABS: Hematocrit 24.4 % (37.0-47.0); Mean Corpuscular HGB Conc 32.8 g/dl (32-36); Mean Corpuscular Hemoglobin 29.3 pg (26-34); Mean Corpuscular Volume 89.4 fl (80-100); Mean Platelet Volume 8.5 fl (7.4-10.4); Platelet Count Result 183 k/mm3 (150-375); Red Blood Count 2.73 M/mm3 (4.2-5.4); Red Cell Distribution Width 15.4 % (11.5-14.5); White Blood Count 2.2 K/mm3 (4.5-10.0)
[2023-02-26 05:57] LABS: Alanine Aminotransferase 20 U/L (6-35); Albumin Level 2.8 g/dL (3.5-5.1); Alkaline Phosphatase 67 U/L (38-126); Anion Gap 5 mmol/L (8-16); Aspartate Amino Transferase 25 U/L (14-36); Bilirubin,Total 0.5 mg/dL (0.2-1.3); Blood Urea Nitrogen 9 mg/dL (7-17); Calcium 7.7 mg/dL (8.4-10.2); Carbon Dioxide 18 mmol/L (22-30); Chloride 112 mmol/L (98-107); Estimated CRCL calculation 50 ml/min; Estimated Glomerular Filt Rate > 60; Glucose 91 mg/dL (65-110); Magnesium 1.8 mg/dL (1.6-2.3); Potassium 3.2 mmol/L (3.4-5.0); Sodium 135 mmol/L (137-145)
[2023-02-26 06:00] VITALS: BP 114/54; PULSE 90; RESP 20; TEMP 36.7; O2SAT 100
[2023-02-26 07:16] LABS: Band Neutrophils Percent 14 % (0-6); Basophils Absolute Manual 0.04 K/mm3 (0.0-0.1); Basophils Percent Manual 2 % (0-1); Burr Cells 2+ (NORMAL); Eosinophils Absolute Manual 0.02 K/mm3 (0.02-0.5); Eosinophils Percent Manual 1 % (0-4); Lymphocytes Absolute Manual 0.79 K/mm3 (1.1-4.5); Monocytes Absolute Manual 0.41 K/mm3 (0.1-0.90); Monocytes Percent Manual 19 % (3-9); Neutrophils Absolute Manual 0.88 K/mm3 (1.7-7.2); Neutrophils Percent Manual 26 % (46-73); Plasma Cells 2; Platelet Estimate Adequate (Adequate); Schistocytes None Seen (NORMAL); Total Cells Counted 100
[2023-02-26 07:17] LABS: Acanthocytes 1+ (NORMAL)
[2023-02-26 07:18] LABS: Ovalocytes 1+ (NORMAL)
[2023-02-26 08:00] VITALS: PULSE 71
[2023-02-26] MEDS: POTASSIUM CHLORIDE INJ 40 MEQ in SODIUM CHLORIDE 0.9% IV 500 ML 130 MEQ IVPB (08:46)
[2023-02-26] MEDS: POTASSIUM CHLORIDE 20 MEQ TABLET 40 MEQ PO (09:08)
[2023-02-26 09:31] LABS: Atypical Lymphocytes Present
--- NOTE | 2023-02-26 10:45 | PM.DS ---
DS: Admitting Diagnosis Discharge Date 02/26/23 1045 Admitting Diagnosis Acute hypokalemia, uncontrolled nausea and vomiting induced by chemotherapy DS: Discharge Diagnosis Discharge Diagnosis (1) Chemotherapy induced nausea and vomiting: Code(s): R11.2 - Nausea with vomiting, unspecified; T45.1X5A - Adverse effect of antineoplastic and immunosuppressive drugs, initial encounter Status: Acute Assessment and Plan: Continue with Zofran and IV fluids Imodium for the diarrhea Replace electrolytes as necessary Patient was given potassium and magnesium. (2) WILMER (acute kidney injury): Code(s): N17.9 - Acute kidney failure, unspecified Status: Acute Assessment and Plan: BUN/Cr 23/3.50 upon admission Currently 20/1.70 acute kidney failure worked up last month by Nephrology. CT imaging and renal ultrasound without obstruction. kidney lesion as noted by her CT imaging MRI shows that the lesion is only assist. AML Continue to hydrate and replace electrolytes as necessary. Continue to trend labs (3) Essential hypertension: Code(s): I10 - Essential (primary) hypertension Status: Acute Assessment and Plan: Blood pressure is currently 120/58. lisinopril stopped last admission due to her renal failure. P.r.n. hydralazine with parameters. Trend BP Adjust therapy as indicated (4) Malignant neoplasm of upper-outer quadrant of right female breast: Code(s): C50.411 - Malignant neoplasm of upper-outer quadrant of right female breast Status: Acute Assessment and Plan: Patient is receiving chemotherapy and will receive radiation Stable Continue outpatient care DS: Summary Hospital Course Hospital Course: Patient is a 77-year-old female with a past medical history of breast cancer, hyperlipidemia, iron deficiency anemia who presented to the ED with complaints of uncontrolled nausea vomiting and diarrhea. Patient had just recently had an infusion and has been experiencing severe nausea vomiting with diarrhea. Upon arrival to the ED patient was noted to be dehydrated with a creatinine of 3.5. CT an ultrasound showed no obstruction previously. Patient has seen a residential lawn specialist and has been worked up for kidney failure however it appears that it was mostly related to dehydration as her renal function has returned to 9/0.8. Patient has been notably hypokalemic and has been getting potassium replacement. Currently potassium is stable at . patient has been rehydrated with IV fluids and has been able to tolerate p.o. intake. Blood pressure has been stable as well. UA did look infectious however culture did not grow any bacteria in came back as no growth. Patient was originally started on IV antibiotics however antibiotics had been discontinued at this time. Currently patient is ready to go home. She denies any current chest pain, shortness a breath, nausea, vomiting, diarrhea constipation. Spoke to the patient educated her about continuous and over hydration prior to her infusions. Patient verbalized understanding. Patient is stable for discharge at this time. Status at Discharge Functional status at discharge: independent ambulation Overall status at discharge: patient is progressing back to baseline Time Spent with Patient Time attestation: Total time spent providing and/or coordinating discharge services: 48 minutes Time spent: Greater than 30 minutes Specific discharge activities: Diagnostic testing, chart review, developing a treatment plan, education, care coordination documentation, physical exam, result review Exam Narrative: General: well-nourished, well-appearing 77-year-old female, laying in bed, comfortable, NARD Neuro: awake, alert and oriented x4, speech clear, no focal neuro deficits noted HEENMT: normocephalic, atraumatic, EOMI, sclerae anicteric, mo
[2023-02-26 12:00] VITALS: PULSE 84
[2023-02-26 13:53] LABS: Potassium 4.3 mmol/L (3.4-5.0)
[2023-02-26 14:00] VITALS: BP 114/66; PULSE 78; RESP 18; TEMP 36.6; O2SAT 100
== END 2023-02-26 16:00 | disposition home or self-care (01) | DRG 683 ==
LOC: ANHED 15:53 → ANH3MED 16:12
PROVIDERS: Nurse Practitioner; Admitting Provider Internal Medicine; Emergency Provider Physician Assistant; Visit Provider Nurse Practitioner
DX: N17.9 Acute kidney failure, unspecified (principal); E87.1 Hypo-osmolality and hyponatremia; E86.0 Dehydration; R19.7 Diarrhea, unspecified; E87.6 Hypokalemia; R11.2 Nausea with vomiting, unspecified; T45.1X5A Adverse effect of antineoplastic and immunosuppressive drugs, initial encounter; N28.9 Disorder of kidney and ureter, unspecified; C50.411 Malignant neoplasm of upper-outer quadrant of right female breast; E78.5 Hyperlipidemia, unspecified; D50.9 Iron deficiency anemia, unspecified; Z90.49 Acquired absence of other specified parts of digestive tract; Z98.42 Cataract extraction status, left eye; Z98.41 Cataract extraction status, right eye
CPT/HCPCS: 36415; 80053; 81001; 83605; 83735; 84132; 84443; 84484; 85025; 87086; 93005; 96361; 96374; 99285; A9270; J2405; J3475; J3480; J7030; J7040

== ENCOUNTER 2023-04-01 06:40 | Emergency (ER) | payer MEDICARE, SELFPAY ==
--- NOTE | ~2023-04-01 | CT_ITS ---
EXAMINATION: CT brain wo con DATE: 04/01/2023 10:56 INDICATION: Syncope. Minor head injury. TECHNIQUE: Computed tomography (CT) of the head was performed without intravenous contrast. The mA wa s adjusted according to patient size. Iterative reconstruction technique was employed. The dose-lengt h product was 605.33 mGy-cm. COMPARISON: None FINDINGS: There is no intracranial hemorrhage, acute infarction, or abnormal intracranial mass lesion . There are scattered areas of low attenuation in the cerebral white matter. The ventricles are eliane l in size. There are likely changes of ocular lens replacement surgeries. The paranasal sinuses are c lear. The mastoid air cells are normal. IMPRESSION: 1. Mild nonspecific cerebral white matter disease, which likely represents chronic small vessel ische nba disease. Reviewed, dictated and finalized at location A. IMPRESSION: 1. Mild nonspecific cerebral white matter disease, which likely represents lunchroom mother cali small vessel ischemic disease.
[2023-04-01 06:30] VITALS: BP 113/54; PULSE 60; RESP 20; TEMP 36.9; O2SAT 100
--- NOTE | 2023-04-01 06:35 | ECG_ITS ---
Measurements Intervals [place] Rate: 56 P: -17 [place]: 195 QRS: -6 QRSD: 76 T: 1 QT: 409 QTc: 396 Interpretive Statements SINUS BRADYCARDIA ATRIAL PREMATURE COMPLEX RSR' IN V1 OR V2, PROBABLY NORMAL VARIANT LOW QRS VOLTAGE IN PRECORDIAL LEADS VOLTAGE CRITERIA FOR LVH BORDERLINE T WAVE ABNORMALITY- ANT/INF LEADS BASELINE ARTIFACT- II, III, AVF BORDERLINE ECG COMPARED TO ECG 02/24/2023 12:58:05 SINUS BRADYCARDIA NOW PRESENT Electronically Signed On 04-01-2023 6:46:24 CDT by Constantino Sesay D.O.
[2023-04-01 07:13] LABS: Eosinophils Percent Auto 0.2 % (0-4.4); Hematocrit 27.3 % (37.0-47.0); Immature Granulocyte Absolute 0.02 K/mm3 (0.00-0.031); Immature Granulocyte Percent A 0.4 % (0-0.5); Lymphocytes Absolute Auto 0.53 K/mm3 (0.9-3.2); Lymphocytes Percent Auto 9.9 % (18.3-44.2); Mean Corpuscular Hemoglobin 30.6 pg (26-34); Mean Corpuscular Volume 92.9 fl (80-100); Monocytes Percent Auto 0.6 % (2.6-8.5); Neutrophils Absolute Auto 4.8 K/mm3 (1.3-6.7); Neutrophils Percent Auto 88.9 % (45.5-73.1); Platelet Count Result 187 k/mm3 (150-375); Red Blood Count 2.94 M/mm3 (4.2-5.4); Red Cell Distribution Width 17.8 % (11.5-14.5); White Blood Count 5.4 K/mm3 (4.5-10.0)
[2023-04-01 07:24] LABS: Alanine Aminotransferase 22 U/L (6-35); Albumin Level 3.2 g/dL (3.5-5.1); Alkaline Phosphatase 79 U/L (38-126); Anion Gap 7 mmol/L (8-16); Aspartate Amino Transferase 35 U/L (14-36); Bilirubin,Total 0.9 mg/dL (0.2-1.3); Blood Urea Nitrogen 15 mg/dL (7-17); Calcium 8.5 mg/dL (8.4-10.2); Carbon Dioxide 23 mmol/L (22-30); Chloride 104 mmol/L (98-107); Estimated CRCL calculation 48 ml/min; Estimated Glomerular Filt Rate > 60; Glucose 99 mg/dL (65-110); Lipase 162 U/L (23-300); Potassium 3.3 mmol/L (3.4-5.0); Sodium 134 mmol/L (137-145)
[2023-04-01 07:45] LABS: Platelet Estimate Adequate (Adequate)
[2023-04-01 07:46] LABS: Acanthocytes 2+ (NORMAL); Schistocytes Rare (NORMAL)
[2023-04-01 07:47] LABS: Anisocytosis 1+ (NORMAL); Poikilocytosis 1+ (NORMAL)
[2023-04-01] MEDS: ONDANSETRON INJ 4 MG/2 ML VIAL IV PUSH (08:25)
[2023-04-01] MEDS: SODIUM CHLORIDE 0.9% IV 1,000 ML 999 ML IV CONT (08:25)
--- NOTE | 2023-04-01 09:04 | ED.GENADULT ---
HPI - General Adult General Chief complaint: Nausea/Vomiting/Diarrhea Stated complaint: Nausea / Vomiting Time Seen by Provider: 04/01/23 07:04 History of Present Illness HPI narrative: Patient is a 77-year-old female who presents ER with syncope and diarrhea. Patient is undergoing treatment for breast cancer and just had her fifth chemotherapy treatment. Patient reports that she began having diarrhea yesterday. She was having loose stool this morning and when she got up off the toilet she got lightheaded. She had a syncopal episode and fell into a wall causing there to be a hole in the wall. She denies injuring her head. She is keenly alert at this time. No blood in stool. No fevers or chills or sweats. No chest pain or chest pressure. Related Data Home Medications Medication Instructions Recorded Confirmed cholecalciferol (vitamin D3) 50 100 mcg PO DAILY 06/27/21 03/21/23 mcg (2,000 unit) capsule calcium 600 mg capsule 1,200 mg PO BID 11/19/22 03/21/23 atorvastatin 40 mg tablet 40 mg PO QAM 01/15/23 03/21/23 ferrous sulfate 325 mg (65 mg 325 mg PO BID 02/14/23 03/21/23 iron) tablet Allergies Allergy/AdvReac Type Severity Reaction Status Date / Time No Known Allergies Allergy Verified 03/21/23 08:25 Review of Systems Review of Systems: All systems reviewed & are unremarkable except as noted in HPI and below Constitutional: Constitutional: Denies chills, Reports fatigue and Denies fever(s) ENT: Denies nasal congestion and Denies sore throat Cardiovascular: Cardiovascular: Reports no additional cardiovascular complaints Respiratory: Respiratory: Denies cough and Denies dyspnea Gastrointestinal: Gastrointestinal: Denies abdominal pain, Reports diarrhea, Reports nausea and Reports vomiting Genitourinary: Genitourinary: Denies nocturia and Denies dysuria [facility] Past Medical History Medical History Essential hypertension Malignant neoplasm of upper-outer quadrant of right female breast Mixed hyperlipidemia Port-A-Cath in place Surgical History Surgical History H/O cataract extraction H/O lumpectomy Hx of cholecystectomy Status post laparoscopic appendectomy Family History Family History Sibling Depression Family history of malignant neoplasm of breast in first degree relative Mother Family history of malignant neoplasm of breast in first degree relative Social History Social History (Updated 02/24/23 @ 21:23 by Ashley Hargrove NP) Social History: She is and has 1 child . 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 code status full code Smoking status: Never smoker Alcohol intake: current Alcohol use details: social Substance use: never Substance use type: does not use Lack of Transportation: No Lack of Food: Never True Current Housing: I Have Housing Concerned About Future Housing: No Difficulty Paying Gas/Electric Bills: No Difficulty Paying for Meds: No Currently Unemployed: No Education: Associate Degree Difficulty w/ Childcare or Family Care: No Spiritual care concerns: No Exam Narrative: GENERAL: Chronically ill-appearing, well-nourished, and in no acute distress. HEAD: Normocephalic, atraumatic. EYES: PERRL and EOMI. ENT: Mucous membranes moist. CHEST: Clear to auscultation. No respiratory distress. HEART: Regular rate and rhythm. Normal peripheral pulses. ABDOMEN: Soft, nontender, nondistended. EXTREMITIES: Normal range of motion. No edema. SKIN: Warm, dry, no rash. NEURO: Alert and oriented x3. PSYCH: Normal mood and affect. Course Course Emergency Course: Daughter present and reporting that patient did strike her head. CT scan added on and no evidence of intracranial injury. Orthostatics negative afte
[2023-04-01 09:51] LABS: Appearance Urine Clear (Clear); Bacteria Urine None Seen /hpf; Bilirubin Urine Negative (Negative); Blood Urine Trace (Negative); Color Urine Yellow (Yellow); Glucose Urine UA Negative (Negative); Ketones Urine Negative (Negative); Leukocyte Esterase Ur 2+ LEU/UL (Negative); Nitrate Urine Negative (Negative); Non Pathogenic Casts 0-2; Protein Urine Negative (Negative); RBC Urine 0-2 /hpf (0-2); Specific Grav Ur 1.008 (1.001-1.035); Squamous Epithelial Cell Urine None seen /hpf (Few); Urobilinogen Urine 0.2 mg/dL (<2.0); WBC Urine >100 /hpf; pH Urine 7.5 (5.0-9.0)
[2023-04-01 10:10] VITALS: BP 133/56; PULSE 83
[2023-04-01 10:12] VITALS: BP 140/70; PULSE 99
[2023-04-01 10:14] VITALS: BP 155/131; PULSE 117
[2023-04-01 10:22] LABS: Add Urine Microscopic? YES
[2023-04-01] MEDS: HEPARIN SODIUM LOCK FLUSH 500 UNITS/5 ML VIAL (12:14)
[2023-04-01 12:15] VITALS: BP 126/62; PULSE 85; RESP 22; O2SAT 99
== END 2023-04-01 12:17 | disposition home or self-care (01) ==
PROVIDERS: Emergency Medicine; Emergency Provider Emergency Medicine
DX: R55 Syncope and collapse (principal); E86.0 Dehydration; R00.1 Bradycardia, unspecified; I10 Essential (primary) hypertension; Z85.3 Personal history of malignant neoplasm of breast; R82.998 Other abnormal findings in urine
CPT/HCPCS: 36415; 70450; 80053; 81001; 83690; 85025; 87077; 87086; 87186; 93005; 96361; 96374; 96375; 99284; J1642; J2405; J7030

== ENCOUNTER 2023-04-05 20:02 | Observation (INO) | payer MEDICARE, SELFPAY ==
[2023-04-05] VITALS (25 sets, daily range): BP systolic 94–123; BP diastolic 41–70; PULSE 72–89; RESP 16–27; O2SAT 98–100
--- NOTE | ~2023-04-05 | CT_ITS ---
EXAMINATION: CTA chest PE protocol DATE: 04/05/2023 20:53 INDICATION: Syncope. TECHNIQUE: Computed tomography angiography (CTA) of the chest was performed with 100 mL Omnipaque-350 intravenous contrast timed to evaluate the pulmonary arteries. Coronal maximum intensity projection 3D-reconstructions were created by the technologist. Automated exposure control and iterative reconst ruction technique were employed. The dose-length product was 268.07 mGy-cm. COMPARISON: CT abdomen and pelvis 01/15/23 FINDINGS: The lungs demonstrate minimal atelectasis. There is a 4 mm nodule in right upper lobe. No p leural effusion. The heart size is normal. No pericardial effusion. There is no pulmonary embolus. Th ere are changes of cholecystectomy. There is mild intrahepatic biliary duct dilatation. The common du ct is dilated to 14 mm, stable from 01/15/2023. There are surgical clips in right axilla. Partially vis ualized is a right breast seroma measuring 4.5 x 2.8 cm. There is moderate thoracic spondylosis. IMPRESSION: 1. No pulmonary embolus. 2. 4 mm pulmonary nodule, probably benign. 3. Stable common duct dilatation status post cholecystectomy. Correlate with liver function tests to determine if this finding is clinically significant. Reviewed, dictated and finalized at location E. IMPRESSION: 1. No pulmonary embolus. 2. 4 mm pulmonary nodule, probably benign. 3. Stable common duct dilatation status post cholecystectomy. Correlate with li luis function tests to determine if this finding is clinically significant.
--- NOTE | ~2023-04-05 | XR_ITS ---
EXAMINATION: XR abdomen/kub 1V DATE: 04/08/2023 16:47 INDICATION: Abdominal pain TECHNIQUE: A supine view of the abdomen on 2 radiographs was obtained. COMPARISON: None. FINDINGS: Moderate amount of gas and small amount of stool scattered throughout the colon. No dilated loops gas -filled bowel to suggest obstruction. Cholecystectomy clips in right upper quadrant. A few additional surgical clips project over the lateral right chest wall and breast. Mild thoracolumbar levocurvatur e with moderate to severe lower lumbar spondylosis. IMPRESSION: 1. Nonobstructive bowel gas pattern. Reviewed, dictated and finalized at location A.
--- NOTE | ~2023-04-05 | XR_ITS ---
EXAMINATION: XR chest 1V portable DATE: 04/05/2023 20:41 INDICATION: Syncope. TECHNIQUE: A single frontal view of the chest was obtained. COMPARISON: CT abdomen and pelvis 01/15/2023 FINDINGS: There is no pneumonia, pleural effusion, or pneumothorax. The heart size is normal. There i s a left internal jugular port with tip at superior cavoatrial junction. There are surgical clips in right axilla. Surgical clips in the right upper quadrant are likely from cholecystectomy. IMPRESSION: 1. No acute cardiopulmonary disease. Reviewed, dictated and finalized at location E.
--- NOTE | 2023-04-05 20:02 | ECG_ITS ---
Measurements Intervals [place] Rate: 73 P: 3 OH: 186 QRS: -9 QRSD: 71 T: 20 QT: 383 QTc: 425 Interpretive Statements SINUS RHYTHM WITH SINUS ARRHYTHMIA DELAYED PRECORDIAL R/S TRANSITION LOW QRS VOLTAGE IN PRECORDIAL LEADS NONSPECIFIC T-WAVE ABNORMALITY- ANT/INF LEADS BORDERLINE ECG NO PREVIOUS ECG AVAILABLE FOR COMPARISON Electronically Signed On 04-06-2023 8:13:51 CDT by Constantino Sesay D.O.
[2023-04-05 20:17] LABS: Basophils Percent Auto 0.6 % (0.2-1.2); Hematocrit 25.2 % (37.0-47.0); Hemoglobin 8.5 g/dL (12.0-15.0); Immature Granulocyte Absolute 0.01 K/mm3 (0.00-0.031); Immature Granulocyte Percent A 0.6 % (0-0.5); Lymphocytes Absolute Auto 1.05 K/mm3 (0.9-3.2); Lymphocytes Percent Auto 62.9 % (18.3-44.2); Mean Corpuscular HGB Conc 33.7 g/dl (32-36); Mean Corpuscular Hemoglobin 30.7 pg (26-34); Mean Platelet Volume 9.6 fl (7.4-10.4); Monocytes Absolute Auto 0.4 K/mm3 (0.1-0.6); Monocytes Percent Auto 23.4 % (2.6-8.5); Neutrophils Absolute Auto 0.2 K/mm3 (1.3-6.7); Neutrophils Percent Auto 12.5 % (45.5-73.1); Platelet Count Result 178 k/mm3 (150-375); Red Blood Count 2.77 M/mm3 (4.2-5.4); Red Cell Distribution Width 17.1 % (11.5-14.5)
--- NOTE | 2023-04-05 20:20 | ED.SYNCOPE ---
HPI - Syncope General Chief Complaint: Syncope Stated Complaint: SYNCOPAL EPISODE Time Seen by Provider: 04/05/23 20:16 History of Present Illness HPI narrative: This is a 77-year-old female, with past history of breast cancer, who presents emergency department after syncopal episode. The patient states she has had multiple episodes of loose stools without blood and while sitting on the toilet today, attempted to have bowel movement, felt lightheaded and lost consciousness. Since then she lost consciousness 4 times. She denies chest pain, shortness of breath or pain. She states she last received chemo 8 days ago. Related Data Home Medications Medication Instructions Recorded Confirmed cholecalciferol (vitamin D3) 50 100 mcg PO DAILY 06/27/21 03/21/23 mcg (2,000 unit) capsule calcium 600 mg capsule 1,200 mg PO BID 11/19/22 03/21/23 atorvastatin 40 mg tablet 40 mg PO QAM 01/15/23 03/21/23 ferrous sulfate 325 mg (65 mg 325 mg PO BID 02/14/23 03/21/23 iron) tablet Allergies Allergy/AdvReac Type Severity Reaction Status Date / Time No Known Allergies Allergy Verified 04/05/23 20:16 Review of Systems Review of Systems: CONSTITUTIONAL: Denies fever, chills, or sweats. CARDIOVASCULAR: Denies chest pain, palpitations, or edema. RESPIRATORY: Denies cough or dyspnea. GASTROINTESTINAL: Denies abdominal pain, nausea, vomiting, or diarrhea. GENITOURINARY: Denies dysuria or hematuria. SKIN: Denies rash or itching. MUSCULOSKELETAL: Denies back pain, joint pain, or myalgia. NEUROLOGIC: Generalized weakness denies headache, numbness, dizziness PSYCHIATRIC: Denies anxiety or depression. [facility] Past Medical History Medical History Essential hypertension Malignant neoplasm of upper-outer quadrant of right female breast Mixed hyperlipidemia Port-A-Cath in place Surgical History Surgical History H/O cataract extraction H/O lumpectomy Hx of cholecystectomy Status post laparoscopic appendectomy Family History Family History Sibling Depression Family history of malignant neoplasm of breast in first degree relative Mother Family history of malignant neoplasm of breast in first degree relative Social History Social History Social History: She is and has 1 child . 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 code status full code Smoking status: Never smoker Alcohol intake: current Alcohol use details: social Substance use: never Substance use type: does not use Lack of Transportation: No Lack of Food: Never True Current Housing: I Have Housing Concerned About Future Housing: No Difficulty Paying Gas/Electric Bills: No Difficulty Paying for Meds: No Currently Unemployed: No Education: Associate Degree Difficulty w/ Childcare or Family Care: No Spiritual care concerns: No Exam Narrative: GENERAL: Well-developed, well-nourished, and in no acute distress. Appears tired HEAD: Normocephalic, atraumatic. EYES: PERRLA and EOMI. ENT: Nares clear, no rhinorrhea or epistaxis. Mucous membranes moist. Oropharynx without tonsillar hypertrophy exudate or other lesions. CHEST: Clear to auscultation. No respiratory distress. No wheezes rales or rhonchi HEART: Regular rate and rhythm. No murmur heard. Normal peripheral pulses. ABDOMEN: Soft, nontender, nondistended, normal active bowel sounds. EXTREMITIES: Normal range of motion. No edema. SKIN: Warm, dry, no rash. NEURO: No focal deficits. Alert and oriented x3. Cranial nerves II through XII intact, strength 5/5 in all extremities, sensation intact bilaterally, no noted ataxia. PSYCH: Normal mood and affect. Course Course Emergency Course: 23:10 - CBC
[2023-04-05 20:32] LABS: Alanine Aminotransferase 19 U/L (6-35); Albumin Level 3.3 g/dL (3.5-5.1); Alkaline Phosphatase 64 U/L (38-126); Anion Gap 6 mmol/L (8-16); Aspartate Amino Transferase 28 U/L (14-36); Bilirubin,Total 0.8 mg/dL (0.2-1.3); Blood Urea Nitrogen 11 mg/dL (7-17); Calcium 8.3 mg/dL (8.4-10.2); Carbon Dioxide 23 mmol/L (22-30); Chloride 101 mmol/L (98-107); Estimated CRCL calculation 29 ml/min; Estimated Glomerular Filt Rate 37; Glucose 127 mg/dL (65-110); Potassium 2.6 mmol/L (3.4-5.0); Sodium 130 mmol/L (137-145)
[2023-04-05 20:48] LABS: White Blood Count 1.7 K/mm3 (4.5-10.0)
[2023-04-05 20:50] LABS: Platelet Estimate Adequate (Adequate)
[2023-04-05 20:51] LABS: Poikilocytosis 1+ (NORMAL)
[2023-04-05 20:52] LABS: Acanthocytes 2+ (NORMAL); Anisocytosis 1+ (NORMAL); Schistocytes None Seen (NORMAL)
[2023-04-05] MEDS: POTASSIUM CHLORIDE 20 MEQ PACKET (FOR LIQUID) 40 MEQ PO (21:09)
[2023-04-05] MEDS: SODIUM CHLORIDE 0.9% IV 2,000 ML 999 ML IV CONT (21:09)
[2023-04-05] MEDS: POTASSIUM CHLORIDE INJ 40 MEQ in SODIUM CHLORIDE 0.9% IV 500 ML 130 MEQ IVPB (21:09)
[2023-04-05 21:36] LABS: Magnesium 1.4 mg/dL (1.6-2.3)
[2023-04-05 22:08] LABS: Lactic Acid Reflex 1.6 mmol/L (0.7-2.0)
[2023-04-05] MEDS: MAGNESIUM SULF 1 GM/D5W 100 ML 1 GM/100 ML BAG IVPB (22:57)
[2023-04-06] VITALS (12 sets, daily range): BP systolic 120–133; BP diastolic 59–92; PULSE 69–107; RESP 18–21; TEMP 36.4–37.1; O2SAT 97–100; BMI 28.0
[2023-04-06 00:03] LABS: Appearance Urine Clear (Clear); Bilirubin Urine Negative (Negative); Blood Urine Negative (Negative); Color Urine Yellow (Yellow); Glucose Urine UA Negative (Negative); Ketones Urine Negative (Negative); Leukocyte Esterase Ur Negative LEU/UL (Negative); Nitrate Urine Negative (Negative); Protein Urine Negative (Negative); Specific Grav Ur 1.029 (1.001-1.035); Urobilinogen Urine 0.2 mg/dL (<2.0)
[2023-04-06 00:05] LABS: Add Urine Microscopic? NO
--- NOTE | 2023-04-06 00:06 | PC.NURSE ---
This patient, Eve Brink, was admitted to [facility] Room 326-01. Patient/family oriented to hospital policies and general routines including ID bracelet, bed and alarms, visiting hours, pain management, procedures, bathroom and other care routines, personal items, smoking policy, room service/diet, and visiting hours. Information on how to activate the Rapid Response Team has been discussed. Patient/Family are encouraged to report perceived risks to care and to ask questions if they do not understand what they are told or what they should do.
[2023-04-06] MEDS: SODIUM CHLORIDE 0.9% IV 1,000 ML 125 ML IV CONT ×3 (00:19→22:01)
[2023-04-06] MEDS: POTASSIUM CHLORIDE 20 MEQ TABLET 40 MEQ PO (00:19)
--- NOTE | 2023-04-06 00:57 | PM.IMHP ---
H&P: HPI History of Present Illness Date/Time: 04/06/23 00:57 Chief Complaint: Passed out Narrative: 77-year-old female with a past medical history of invasive ductal carcinoma of the right breast cancer actively undergoing chemotherapy who presented to the ER after having a syncopal event. The patient underwent chemotherapy week ago and since that time has had decreased oral intake and poor appetite. She has had persistent nausea and occasional vomiting. She reports that she has had intermittent diarrhea that is actually improved compared to prior episodes since she is now using Lomotil to help with symptoms. However she passed out several days ago when she got on the toilet to have a bowel movement and had incontinence of both bowel and bladder when she passed out. She hit her head on the wall and cause a hole in the drywall. She came to the ER and has CT of her head that was negative. Her labs at that time did rim mild hypokalemia and a normal creatinine. She reports that when she feels like she has to go to the bathroom she will become diaphoretic and lightheaded before passing out. Then today she again had a syncopal episode while having a bowel movement but her daughter was in the bathroom with her and held her upright on the toilet. She reports that her bowel movement today was diarrheal but not frankly watery. She denied any hematochezia or melena. She denies any accompanying abdominal pain with her symptoms. She has had multiple episodes similar to this since she has been on chemotherapy. She has had multiple admissions for so she had acute kidney injury due to profound dehydration. She states that she would like to get IV fluids as outpatient so she could avoid coming to the ER and being admitted. She received a script for Cipro on 04/04/2023 from either her primary care physician are her oncologist for possible urinary symptoms. The patient reports that she always has some urinary frequency just due to her age and condition. She reports that ever since she started on chemotherapy she does have foamy urine. She does not have any significant proteinuria on her UA. She denies any dysuria or hematuria. She denies any increased urgency from baseline. She denies any dark urine or foul-smelling urine. She has not been having any fevers. She denies any oral ulcers. She denies any headache or vision changes. She denies any shortness of breath, cough or congestion. On exam she is noted as some periorbital edema but she denies noticing any swelling of her extremities or face. Source of information: Patient who is a good historian and review of external and past medical records within the system. Patient has reportedly HER2 positive breast cancer. However her HER2 fish was negative. Her HER2/karlo was indeterminate. She states that she hopes that the 2nd step of the chemotherapy that she received for her HER2 is not as rough on her body. Review of Systems Review of Systems: 12 systems were reviewed with pertinent positives and negatives per HPI. Except as documented in the HPI, all other systems were reviewed and are negative. [facility] Past Medical History Medical History (Updated 04/06/23 @ 07:00 by Esperanza Nelson DO) Diastolic dysfunction Noted on echocardiogram December 2022: Grade 1 diastolic dysfunction EF 65-70% Essential hypertension Malignant neoplasm of upper-outer quadrant of right female breast Invasive ductal carcinoma Spray grade 2. (ER positive, PgR positive, MID1/Ki-67 high, HER2/karlo positive) chemotherapy started December 2021 Mixed hyperlipidemia Port-A-Cath in place Surgical History Surgical History (Updated 04/06/23 @ 07:00 by Esperanza Nelson DO) H/O cataract extraction H/O lumpectomy (07/2022) Hx of cholecystectomy Status post laparoscopic appendectomy Family History Family History Sibling Depression Family history of malignan
[2023-04-06] MEDS: MAGNESIUM SULF 2 GM/WATER 50ML 2 GM/50 ML BAG IVPB (01:13)
[2023-04-06 06:28] LABS: Basophils Percent Auto 0.8 % (0.2-1.2); Hematocrit 22.3 % (37.0-47.0); Hemoglobin 7.3 g/dL (12.0-15.0); Lymphocytes Absolute Auto 0.54 K/mm3 (0.9-3.2); Lymphocytes Percent Auto 45.4 % (18.3-44.2); Mean Corpuscular HGB Conc 32.7 g/dl (32-36); Mean Corpuscular Hemoglobin 30.5 pg (26-34); Mean Corpuscular Volume 93.3 fl (80-100); Mean Platelet Volume 9.4 fl (7.4-10.4); Monocytes Absolute Auto 0.4 K/mm3 (0.1-0.6); Monocytes Percent Auto 36.1 % (2.6-8.5); Neutrophils Absolute Auto 0.2 K/mm3 (1.3-6.7); Neutrophils Percent Auto 17.7 % (45.5-73.1); Platelet Count Result 159 k/mm3 (150-375); Red Blood Count 2.39 M/mm3 (4.2-5.4); Red Cell Distribution Width 17.4 % (11.5-14.5)
[2023-04-06 07:09] LABS: Anion Gap 3 mmol/L (8-16); Blood Urea Nitrogen 6 mg/dL (7-17); Calcium 7.7 mg/dL (8.4-10.2); Carbon Dioxide 19 mmol/L (22-30); Chloride 112 mmol/L (98-107); Estimated CRCL calculation 35 ml/min; Estimated Glomerular Filt Rate 48; Glucose 96 mg/dL (65-110); Magnesium 2.7 mg/dL (1.6-2.3); Phosphorus 2.5 mg/dL (2.5-4.5); Potassium 4.2 mmol/L (3.4-5.0); Sodium 134 mmol/L (137-145)
[2023-04-06] MEDS: CYANOCOBALAMIN 500 MCG TABLET PO ×2 (08:43→17:05)
[2023-04-06] MEDS: CALCIUM CARBONATE (OSCAL) 500 MG TABLET 1000 MG PO ×2 (08:43→17:05)
[2023-04-06] MEDS: FERROUS SULFATE 324 MG TABLET PO ×2 (08:43→17:05)
[2023-04-06] MEDS: CHOLECALCIFEROL 1,000 UNITS TABLET 4000 UNITS PO (08:43)
[2023-04-06] MEDS: POTASSIUM CHLORIDE 20 MEQ TABLET.ER PO (08:43)
[2023-04-06] MEDS: HEPARIN SODIUM 5,000 UNITS/ML VIAL 5000 UNITS SUB-Q ×2 (08:44→20:17)
[2023-04-06] MEDS: ONDANSETRON INJ 4 MG/2 ML VIAL IV PUSH ×2 (08:48→14:41)
[2023-04-06] MEDS: LOPERAMIDE HCL 2 MG CAPSULE PO ×2 (08:48→14:41)
[2023-04-06 09:48] LABS: White Blood Count 1.2 K/mm3 (4.5-10.0)
[2023-04-06 09:53] LABS: Platelet Estimate Adequate (Adequate)
[2023-04-06 09:54] LABS: Anisocytosis 1+ (NORMAL); Schistocytes None Seen (NORMAL)
[2023-04-06 09:56] LABS: Acanthocytes 1+ (NORMAL)
[2023-04-06] MEDS: PIPERACILLN/TAZ 3.375GM/NS50ML 3.375 GM/50 ML BAG IVPB ×3 (10:09→20:17)
--- NOTE | 2023-04-06 12:45 | WPDPN ---
Progress Note: A&P Assessment and Plan (1) WILMER (acute kidney injury): Code(s): N17.9 - Acute kidney failure, unspecified Status: Acute (2) Acute dehydration: Code(s): E86.0 - Dehydration Status: Acute (3) Hypokalemia: Code(s): E87.6 - Hypokalemia Status: Acute (4) Syncope: Qualifiers: Syncope type: vasovagal syncope Qualified Code(s): R55 - Syncope and collapse Code(s): R55 - Syncope and collapse Status: Acute (5) Hypomagnesemia: Code(s): E83.42 - Hypomagnesemia Status: Acute (6) Chemotherapy induced diarrhea: Code(s): K52.1 - Toxic gastroenteritis and colitis; T45.1X5A - Adverse effect of antineoplastic and immunosuppressive drugs, initial encounter Status: Acute (7) Leukopenia due to antineoplastic chemotherapy: Code(s): D70.1 - Agranulocytosis secondary to cancer chemotherapy; T45.1X5A - Adverse effect of antineoplastic and immunosuppressive drugs, initial encounter Status: Acute Plan Patient for severe dehydration due to chemotherapy-induced diarrhea. She has associated acute kidney injury and relative hypotension. Hypotension resolved after IV fluid hydration. Will hold the patient's home antihypertensive medications. Will continue IV fluid hydration and will repeat electrolyte panel in a.m.. Patient's baseline creatinine is 0.8 and she is currently elevated to 1.4. She also has associated hypokalemia and hypo magnesemia due to high output of stool. She received total of 80 mEq potassium chloride in the ER for potassium of 2.6 and 1 g of magnesium sulfate in the ER. I have subsequent ordered an additional 40 mEq of p.o. potassium and 2 g magnesium sulfate rider. Will repeat BMP and magnesium level with a.m. labs. Will also check a phosphorus level. Patient does have some leukopenia likely secondary to chemotherapy. She is not having any fever. She does not have any acute abdominal signs that would indicate infection. Will repeat CBC in a.m.. 04/06/2023 interval history: 77-year-old female with history of breast cancer being treated with chemotherapy presented with syncopal episode with complains nausea or vomiting and diet patient is dehydrated patient is being hydrated and symptoms are improved also patient has leukopenia most likely secondary to chemotherapy, communicated with patient's oncologist started the patient on Neupogen 480 mcg SC q.day, continue to monitor have PT OT evaluate the patient and further recommendation to follow. Subjective Date/time seen: 04/06/23 12:45 Interval history: Chief Complaint: Passed out Narrative: 77-year-old female with a past medical history of invasive ductal carcinoma of the right breast cancer actively undergoing chemotherapy who presented to the ER after having a syncopal event.? The patient underwent chemotherapy week ago and since that time has had decreased oral intake and poor appetite.? She has had persistent nausea and occasional vomiting.? She reports that she has had intermittent diarrhea that is actually improved compared to prior episodes since she is now using Lomotil to help with symptoms.? However she passed out several days ago when she got on the toilet to have a bowel movement and had incontinence of both bowel and bladder when she passed out.? She hit her head on the wall and cause a hole in the drywall.? She came to the ER and has CT of her head that was negative.? Her labs at that time did rim mild hypokalemia and a normal creatinine.? She reports that when she feels like she has to go to the bathroom she will become diaphoretic and lightheaded before passing out.? Then today she again had a syncopal episode while having a bowel movement but her daughter was in the bathroom with her and held her upright on the toilet.? She reports that her bowel movement today was diarrheal but not frankly watery.? She denied any hematochezia or melena.? She denies any accompanyi
[2023-04-07] VITALS (9 sets, daily range): BP systolic 111–131; BP diastolic 57–60; PULSE 56–94; RESP 16–20; TEMP 36.2–36.5; O2SAT 99–100
[2023-04-07] MEDS: PIPERACILLN/TAZ 3.375GM/NS50ML 3.375 GM/50 ML BAG IVPB ×4 (03:57→20:03)
[2023-04-07] MEDS: SODIUM CHLORIDE 0.9% IV 1,000 ML 125 ML IV CONT ×3 (06:32→17:33)
[2023-04-07 09:09] LABS: Basophils Percent Auto 1.2 % (0.2-1.2); Eosinophils Percent Auto 0.6 % (0-4.4); Hematocrit 22.9 % (37.0-47.0); Hemoglobin 7.4 g/dL (12.0-15.0); Immature Granulocyte Absolute 0.02 K/mm3 (0.00-0.031); Immature Granulocyte Percent A 1.2 % (0-0.5); Lymphocytes Absolute Auto 0.75 K/mm3 (0.9-3.2); Lymphocytes Percent Auto 46.6 % (18.3-44.2); Mean Corpuscular HGB Conc 32.3 g/dl (32-36); Mean Corpuscular Hemoglobin 30.7 pg (26-34); Monocytes Absolute Auto 0.4 K/mm3 (0.1-0.6); Neutrophils Absolute Auto 0.4 K/mm3 (1.3-6.7); Neutrophils Percent Auto 27.4 % (45.5-73.1); Platelet Count Result 186 k/mm3 (150-375); Red Blood Count 2.41 M/mm3 (4.2-5.4); Red Cell Distribution Width 17.5 % (11.5-14.5)
[2023-04-07] MEDS: LOPERAMIDE HCL 2 MG CAPSULE PO ×3 (09:17→18:43)
[2023-04-07] MEDS: ONDANSETRON INJ 4 MG/2 ML VIAL IV PUSH ×2 (09:17→17:37)
[2023-04-07] MEDS: FERROUS SULFATE 324 MG TABLET PO ×2 (09:18→17:33)
[2023-04-07] MEDS: POTASSIUM CHLORIDE 20 MEQ TABLET.ER PO (09:18)
[2023-04-07] MEDS: CHOLECALCIFEROL 1,000 UNITS TABLET 4000 UNITS PO (09:18)
[2023-04-07] MEDS: CYANOCOBALAMIN 500 MCG TABLET PO ×2 (09:18→17:33)
[2023-04-07] MEDS: CALCIUM CARBONATE (OSCAL) 500 MG TABLET 1000 MG PO ×2 (09:18→17:33)
[2023-04-07] MEDS: FILGRASTIM-SNDZ 480 MCG/0.8 ML SYRINGE SUB-Q (09:19)
[2023-04-07 09:32] LABS: Anion Gap 3 mmol/L (8-16); Blood Urea Nitrogen 2 mg/dL (7-17); Calcium 6.7 mg/dL (8.4-10.2); Carbon Dioxide 16 mmol/L (22-30); Chloride 116 mmol/L (98-107); Estimated CRCL calculation 48 ml/min; Estimated Glomerular Filt Rate > 60; Glucose 113 mg/dL (65-110); Potassium 3.3 mmol/L (3.4-5.0); Sodium 135 mmol/L (137-145)
[2023-04-07 09:41] LABS: White Blood Count 1.6 K/mm3 (4.5-10.0)
[2023-04-07 09:45] LABS: Anisocytosis 1+ (NORMAL); Platelet Estimate Adequate (Adequate)
[2023-04-07 09:46] LABS: Acanthocytes 2+ (NORMAL); Poikilocytosis 1+ (NORMAL); Schistocytes None Seen (NORMAL)
--- NOTE | 2023-04-07 09:57 | PM.IMPN ---
Progress Note: A&P Assessment and Plan (1) WILMER (acute kidney injury): Code(s): N17.9 - Acute kidney failure, unspecified Status: Acute Assessment and Plan: severe dehydration due to chemotherapy-induced diarrhea. She has associated acute kidney injury and relative hypotension. Hypotension resolved after IV fluid hydration. WILMER has resolved but patient is still having diarrhea. Continue IV fluids for 1 more day (2) Acute dehydration: Code(s): E86.0 - Dehydration Status: Acute Assessment and Plan: As above (3) Hypokalemia: Code(s): E87.6 - Hypokalemia Status: Acute Assessment and Plan: Being replaced (4) Syncope: Qualifiers: Syncope type: vasovagal syncope Qualified Code(s): R55 - Syncope and collapse Code(s): R55 - Syncope and collapse Status: Acute Assessment and Plan: From diarrhea and orthostatic hypotension (5) Leukopenia due to antineoplastic chemotherapy: Code(s): D70.1 - Agranulocytosis secondary to cancer chemotherapy; T45.1X5A - Adverse effect of antineoplastic and immunosuppressive drugs, initial encounter Status: Acute Assessment and Plan: most likely secondary to chemotherapy, communicated with patient's oncologist started the patient on Neupogen 480 mcg SC q.day, continue to monitor have PT OT evaluate the patient and further recommendation to follow. Subjective Date/time seen: 04/07/23 09:57 Interval history: No complaints at this time Review of Systems Review of Systems: 12 systems were reviewed with pertinent positives and negatives per HPI. Except as documented in the HPI, all other systems were reviewed and are negative. Exam Narrative: Elderly frail Patient is comfortable, NAD HEENT: eyes are clear and none icteric LUNGS: Normal respiratory effort ABD: Not distended Lower extremities: no edema SKIN: nonjaundiced Neuro: grossly intact. Objective Data Vital Signs Vital Signs: Vital Signs - 24 hr 04/06/23 12:00 04/06/23 14:00 04/06/23 16:00 Temperature 98.7 F Pulse Rate 80 69 77 Respiratory Rate 21 H Blood Pressure 127/64 Pulse Oximetry 99 Oxygen Delivery 04/06/23 20:16 04/06/23 21:23 04/06/23 20:00 Temperature 98.7 F 98.3 F Pulse Rate 70 83 83 Respiratory Rate 18 20 20 Blood Pressure 122/72 121/92 H Pulse Oximetry 97 99 99 Oxygen Delivery Room Air 04/06/23 20:00 04/07/23 00:00 04/07/23 06:00 Temperature 97.7 F Pulse Rate 107 H 64 79 Respiratory Rate 20 Blood Pressure 111/57 L Pulse Oximetry 99 Oxygen Delivery 04/07/23 04:00 Temperature Pulse Rate 70 Respiratory Rate Blood Pressure Pulse Oximetry Oxygen Delivery Intake/Output Intake/Output: Intake & Output 04/04/23 04/05/23 04/06/23 04/07/23 23:59 23:59 23:59 23:59 Intake Total 2099 4185 / 4185 2640 / 2640 Output Total 200 / 200 Balance 2099 3985 / 3985 2640 / 2640 Meds/Results Medications: Active Medications Generic Name Dose Route Start Last Admin Trade Name Freq PRN Reason Stop Dose Admin Calcium Carbonate 1,000 mg 04/06/23 09:00 04/07/23 09:18 Calcium Carbonate (Oscal) 500 Mg Tablet PO 1,000 mg BID MIHAELA Administration Cyanocobalamin 500 mcg 04/06/23 09:00 04/07/23 09:18 Cyanocobalamin 500 Mcg Tablet PO 500 mcg BID MIHAELA Administration Diphenoxylate HCl/Atropine 1 tablet 04/06/23 02:11 Diphenoxylate/Atropine (*Crx) 2.5 Mg Tablet PO QID PRN Diarrhea Ferrous Sulfate 324 mg 04/06/23 09:00 04/07/23 09:18 Ferrous Sulfate 324 Mg Tablet PO 324 mg BID MIHAELA Administration Filgrastim-Sndz 480 mcg 04/07/23 09:00 04/07/23 09:19 Filgrastim-Sndz 480 Mcg/0.8 Ml Syringe SUB-Q 480 mcg DAILY MIHAELA Administration Heparin Sodium (Beef Lung) 50 units 04/06/23 05:46 Heparin Flush 50 Units/5 Ml Syringe IV PUSH PRN PRN Flush Heparin Sodium (Porcin
[2023-04-07] MEDS: HEPARIN SODIUM 5,000 UNITS/ML VIAL 5000 UNITS SUB-Q ×2 (13:00→20:03)
[2023-04-08] VITALS (9 sets, daily range): BP systolic 120–128; BP diastolic 58–70; PULSE 65–93; RESP 14–20; TEMP 36–36.6; O2SAT 100
[2023-04-08] MEDS: ONDANSETRON INJ 4 MG/2 ML VIAL IV PUSH ×4 (02:20→21:12)
[2023-04-08] MEDS: PIPERACILLN/TAZ 3.375GM/NS50ML 3.375 GM/50 ML BAG IVPB ×2 (02:20→09:51)
[2023-04-08] MEDS: SODIUM CHLORIDE 0.9% IV 1,000 ML 125 ML IV CONT (02:20)
[2023-04-08 09:34] LABS: Hematocrit 22.8 % (37.0-47.0); Hemoglobin 7.5 g/dL (12.0-15.0); Mean Corpuscular HGB Conc 32.9 g/dl (32-36); Mean Corpuscular Hemoglobin 30.7 pg (26-34); Mean Corpuscular Volume 93.4 fl (80-100); Platelet Count Result 206 k/mm3 (150-375); Red Blood Count 2.44 M/mm3 (4.2-5.4); Red Cell Distribution Width 17.2 % (11.5-14.5); White Blood Count 8.9 K/mm3 (4.5-10.0)
[2023-04-08] MEDS: FILGRASTIM-SNDZ 480 MCG/0.8 ML SYRINGE SUB-Q (09:51)
[2023-04-08 09:52] LABS: Anion Gap 7 mmol/L (8-16); Calcium 7.9 mg/dL (8.4-10.2); Carbon Dioxide 15 mmol/L (22-30); Chloride 113 mmol/L (98-107); Estimated CRCL calculation 43 ml/min; Estimated Glomerular Filt Rate > 60; Glucose 92 mg/dL (65-110); Magnesium 1.4 mg/dL (1.6-2.3); Potassium 2.8 mmol/L (3.4-5.0); Sodium 135 mmol/L (137-145)
[2023-04-08] MEDS: CHOLECALCIFEROL 1,000 UNITS TABLET 4000 UNITS PO (09:52)
[2023-04-08] MEDS: CYANOCOBALAMIN 500 MCG TABLET PO ×2 (09:52→17:26)
[2023-04-08] MEDS: POTASSIUM CHLORIDE 20 MEQ TABLET.ER PO (09:53)
[2023-04-08] MEDS: CALCIUM CARBONATE (OSCAL) 500 MG TABLET 1000 MG PO ×2 (09:53→17:26)
[2023-04-08] MEDS: HEPARIN SODIUM 5,000 UNITS/ML VIAL 5000 UNITS SUB-Q ×2 (09:53→21:12)
[2023-04-08] MEDS: SODIUM CHLORIDE 0.9% IV 1,000 ML 70 ML IV CONT (09:54)
[2023-04-08 10:10] LABS: Band Neutrophils Percent 29 % (0-6); Lymphocytes Absolute Manual 0.89 K/mm3 (1.1-4.5); Monocytes Absolute Manual 0.53 K/mm3 (0.1-0.90); Monocytes Percent Manual 6 % (3-9); Neutrophils Absolute Manual 7.47 K/mm3 (1.7-7.2); Neutrophils Percent Manual 55 % (46-73); Platelet Estimate Adequate (Adequate); Schistocytes Rare (NORMAL); Total Cells Counted 100
[2023-04-08 10:11] LABS: Acanthocytes 2+ (NORMAL); Atypical Lymphocytes Present; Ovalocytes 1+ (NORMAL); Poikilocytosis 2+ (NORMAL)
[2023-04-08 10:37] LABS: Blood Urea Nitrogen < 2 mg/dL (7-17)
--- NOTE | 2023-04-08 11:41 | PM.IMPN ---
Progress Note: A&P Assessment and Plan (1) WILMER (acute kidney injury): Code(s): N17.9 - Acute kidney failure, unspecified Status: Acute Assessment and Plan: WILMER has resolved . diarrhea is better. dc IVF (2) Acute dehydration: Code(s): E86.0 - Dehydration Status: Acute Assessment and Plan: As above. DC IVF (3) Hypokalemia: Code(s): E87.6 - Hypokalemia Status: Acute Assessment and Plan: Being replaced (4) Syncope: Qualifiers: Syncope type: vasovagal syncope Qualified Code(s): R55 - Syncope and collapse Code(s): R55 - Syncope and collapse Status: Acute Assessment and Plan: From diarrhea and orthostatic hypotension (5) Leukopenia due to antineoplastic chemotherapy: Code(s): D70.1 - Agranulocytosis secondary to cancer chemotherapy; T45.1X5A - Adverse effect of antineoplastic and immunosuppressive drugs, initial encounter Status: Acute Assessment and Plan: most likely secondary to chemotherapy, resolved. Discontinue Neupogen Subjective Date/time seen: 04/08/23 11:41 Interval history: diarrhea is better Review of Systems Review of Systems: 12 systems were reviewed with pertinent positives and negatives per HPI. Except as documented in the HPI, all other systems were reviewed and are negative. Exam Narrative: Elderly frail Patient is comfortable, NAD HEENT: eyes are clear and none icteric LUNGS: Normal respiratory effort ABD: Not distended Lower extremities: no edema SKIN: nonjaundiced Neuro: grossly intact. Objective Data Vital Signs Vital Signs: Vital Signs - 24 hr 04/07/23 12:00 04/07/23 16:00 04/07/23 14:00 Temperature 97.4 F L Pulse Rate 94 85 94 Respiratory Rate 20 Blood Pressure 131/60 Pulse Oximetry 100 Oxygen Delivery 04/07/23 20:00 04/07/23 21:43 04/07/23 20:00 Temperature 97.2 F L Pulse Rate 87 91 Respiratory Rate 16 Blood Pressure 122/59 L Pulse Oximetry 100 Oxygen Delivery Room Air 04/08/23 00:00 04/08/23 04:00 04/08/23 05:09 Temperature 96.8 F L Pulse Rate 65 79 80 Respiratory Rate 20 Blood Pressure 128/70 Pulse Oximetry 100 Oxygen Delivery 04/08/23 09:51 Temperature Pulse Rate 93 Respiratory Rate Blood Pressure Pulse Oximetry Oxygen Delivery Intake/Output Intake/Output: Intake & Output 04/05/23 04/06/23 04/07/23 04/08/23 23:59 23:59 23:59 23:59 Intake Total 2099 4185 / 4185 4720 / 4720 2180 / 2180 Output Total 200 / 200 1800 / 1800 800 / 800 Balance 2099 3985 / 3985 2920 / 2920 1380 / 1380 Meds/Results Medications: Active Medications Generic Name Dose Route Start Last Admin Trade Name Freq PRN Reason Stop Dose Admin Calcium Carbonate 1,000 mg 04/06/23 09:00 04/08/23 09:53 Calcium Carbonate (Oscal) 500 Mg Tablet PO 1,000 mg BID MIHAELA Administration Cyanocobalamin 500 mcg 04/06/23 09:00 04/08/23 09:52 Cyanocobalamin 500 Mcg Tablet PO 500 mcg BID MIHAELA Administration Diphenoxylate HCl/Atropine 1 tablet 04/06/23 02:11 Diphenoxylate/Atropine (*Crx) 2.5 Mg Tablet PO QID PRN Diarrhea Ferrous Sulfate 324 mg 04/09/23 08:00 Ferrous Sulfate 324 Mg Tablet PO DAILY@0800 MIHAELA Filgrastim-Sndz 480 mcg 04/07/23 09:00 04/08/23 09:51 Filgrastim-Sndz 480 Mcg/0.8 Ml Syringe SUB-Q 480 mcg DAILY MIHAELA Administration Heparin Sodium (Beef Lung) 50 units 04/06/23 05:46 Heparin Flush 50 Units/5 Ml Syringe IV PUSH PRN PRN Flush Heparin Sodium (Porcine) 5,000 units 04/06/23 09:00 04/08/23 09:53 Heparin Sodium 5,000 Units/Ml Vial SUB-Q 5,000 units Q12HR MIHAELA Administration Sodium Chloride 1,000 mls @ 70 mls/hr 04/05/23 23:15 04/08/23 09:54 Normal Saline Iv IV CONT 70 mls/hr .[id number] MIHAELA Administration Piperacillin/Tazobactam/Dextrose 3.375 gm in 50 mls @ 100 mls/hr 04/06/23 09:00 04/08/23 1
[2023-04-08] MEDS: POTASSIUM CHLORIDE 20 MEQ TABLET 80 MEQ PO (12:19)
[2023-04-08] MEDS: LOPERAMIDE HCL 2 MG CAPSULE PO (12:19)
[2023-04-08] MEDS: ACETAMINOPHEN 325 MG TABLET 650 MG PO (17:34)
[2023-04-09] VITALS: PULSE 80
[2023-04-09 04:00] VITALS: PULSE 89
[2023-04-09 06:00] VITALS: BP 122/68; PULSE 93; RESP 18; TEMP 36.3; O2SAT 100
[2023-04-09 08:00] VITALS: PULSE 86
[2023-04-09 08:24] LABS: Basophils Absolute Auto 0.1 K/mm3 (0.0-0.1); Basophils Percent Auto 0.5 % (0.2-1.2); Eosinophils Percent Auto 0.1 % (0-4.4); Hematocrit 24.1 % (37.0-47.0); Hemoglobin 7.6 g/dL (12.0-15.0); Immature Granulocyte Absolute 1.65 K/mm3 (0.00-0.031); Immature Granulocyte Percent A 6.5 % (0-0.5); Lymphocytes Absolute Auto 1.61 K/mm3 (0.9-3.2); Lymphocytes Percent Auto 6.3 % (18.3-44.2); Mean Corpuscular HGB Conc 31.5 g/dl (32-36); Mean Corpuscular Hemoglobin 29.6 pg (26-34); Mean Corpuscular Volume 93.8 fl (80-100); Mean Platelet Volume 8.7 fl (7.4-10.4); Monocytes Absolute Auto 1.7 K/mm3 (0.1-0.6); Monocytes Percent Auto 6.7 % (2.6-8.5); Neutrophils Absolute Auto 20.4 K/mm3 (1.3-6.7); Neutrophils Percent Auto 79.9 % (45.5-73.1); Nucleated Red Blood Cells Perc 0.1 % (0.0-0.2); Platelet Count Result 230 k/mm3 (150-375); Red Blood Count 2.57 M/mm3 (4.2-5.4); Red Cell Distribution Width 17.8 % (11.5-14.5); White Blood Count 25.5 K/mm3 (4.5-10.0)
[2023-04-09 08:41] LABS: Anion Gap 8 mmol/L (8-16); Calcium 8.6 mg/dL (8.4-10.2); Carbon Dioxide 16 mmol/L (22-30); Chloride 113 mmol/L (98-107); Estimated CRCL calculation 43 ml/min; Estimated Glomerular Filt Rate > 60; Glucose 83 mg/dL (65-110); Potassium 3.7 mmol/L (3.4-5.0); Sodium 137 mmol/L (137-145)
[2023-04-09 08:43] LABS: Blood Urea Nitrogen < 2 mg/dL (7-17)
[2023-04-09] MEDS: POTASSIUM CHLORIDE 20 MEQ TABLET.ER PO (09:19)
[2023-04-09] MEDS: CYANOCOBALAMIN 500 MCG TABLET PO (09:19)
[2023-04-09] MEDS: CHOLECALCIFEROL 1,000 UNITS TABLET 4000 UNITS PO (09:20)
[2023-04-09] MEDS: HEPARIN SODIUM 5,000 UNITS/ML VIAL 5000 UNITS SUB-Q (09:20)
[2023-04-09] MEDS: CALCIUM CARBONATE (OSCAL) 500 MG TABLET 1000 MG PO (09:20)
[2023-04-09] MEDS: FERROUS SULFATE 324 MG TABLET PO (09:20)
[2023-04-09 10:27] LABS: Burr Cells 2+ (NORMAL); Platelet Estimate Adequate (Adequate); Poikilocytosis 2+ (NORMAL); Tear Drop Cells 1+ (NORMAL)
[2023-04-09 10:28] LABS: Acanthocytes 2+ (NORMAL); Schistocytes Rare (NORMAL)
--- NOTE | 2023-04-09 10:41 | PC.NURSE ---
Dr. Matias informed by phone, @ [phone], regarding patient's WBC. He stated patient can go home today.
--- NOTE | 2023-04-09 11:00 | PM.DS ---
DS: Admitting Diagnosis Discharge Date 04/09/2023 Admitting Diagnosis Neutropenia WILMER Nausea vomiting diarrhea DS: Discharge Diagnosis Discharge Diagnosis (1) Leukopenia due to antineoplastic chemotherapy: Code(s): D70.1 - Agranulocytosis secondary to cancer chemotherapy; T45.1X5A - Adverse effect of antineoplastic and immunosuppressive drugs, initial encounter Status: Acute (2) WILMER (acute kidney injury): Code(s): N17.9 - Acute kidney failure, unspecified Status: Acute (3) Chemotherapy induced diarrhea: Code(s): K52.1 - Toxic gastroenteritis and colitis; T45.1X5A - Adverse effect of antineoplastic and immunosuppressive drugs, initial encounter Status: Acute (4) Chemotherapy induced nausea and vomiting: Code(s): R11.2 - Nausea with vomiting, unspecified; T45.1X5A - Adverse effect of antineoplastic and immunosuppressive drugs, initial encounter Status: Acute DS: Summary Hospital Course Hospital Course: 77-year-old female with a past medical history of invasive ductal carcinoma of the right breast cancer actively undergoing chemotherapy who presented to the ER after having a syncopal event.? The patient underwent chemotherapy week ago and since that time has had decreased oral intake and poor appetite.? She has had persistent nausea and occasional vomiting.? She reports that she has had intermittent diarrhea that is actually improved compared to prior episodes since she is now using Lomotil to help with symptoms.? However she passed out several days ago when she got on the toilet to have a bowel movement and had incontinence of both bowel and bladder when she passed out.? She hit her head on the wall and cause a hole in the drywall.? She came to the ER and has CT of her head that was negative.? She had mild acute kidney injury. She also reported diarrhea. Patient was started on IV fluids. Her oncologist was consulted and he recommended to start patient on filgrastim. Her renal functions improved back to normal and IV fluids were stopped. Her white cell count is now jumped up to 22,000. Patient has been afebrile and is asymptomatic at this time and has been discharged home Time Spent with Patient Time attestation: Total time spent providing and/or coordinating discharge services: Exam Narrative: Elderly frail Patient is comfortable, NAD HEENT: eyes are clear and none icteric LUNGS: Normal respiratory effort ABD: Not distended Lower extremities: no edema SKIN: nonjaundiced Neuro: grossly intact. DS: Data Data Completed and Pending Labs on day of discharge: Labs from last 24 hours 04/09/23 08:17 WBC 25.5 H RBC 2.57 L Hgb 7.6 L Hct 24.1 L MCV 93.8 MCH 29.6 MCHC 31.5 L RDW 17.8 H Plt Count 230 MPV 8.7 Immature Gran % (Auto) 6.5 H Neut % (Auto) 79.9 H Lymph % (Auto) 6.3 L [place] % (Auto) 6.7 Eos % (Auto) 0.1 Baso % (Auto) 0.5 Lymph # (Auto) 1.61 [place] # (Auto) 1.7 H Eos # (Auto) 0.0 Baso # (Auto) 0.1 Abs Immat Gran (auto) 1.65 H Absolute Neuts (auto) 20.4 H Absolute Nucleated RBC 0.0 Nucleated RBC % 0.1 Platelet Estimate Adequate Poikilocytosis 2+ Tear Drop Cells 1+ Erickson Cells 2+ Acanthocytes (Spur) 2+ Schistocytes Rare Sodium 137 Potassium 3.7 Chloride 113 H Carbon Dioxide 16 L Anion Gap 8 BUN < 2 L Creatinine 0.90 Estim Creat Clear Calc 43 Estimated GFR > 60 Glucose 83 Calcium 8.6 Discharge Plan Discharge Discharging Clinician: Darwin Matias Anticipated Discharge Date/Time: 04/09/23 10:58 Patient Disposition: Home, Self-Care Activity: no preference Diet: regular Patient Instructions: Antibiotic Form, Acute Kidney Injury (DC), Hypokalemia (DC) Stand Alone Forms: General Discharge Information Follow-up/Referrals: Danny Ocampo APRN [Primary Care Provider] - Discharge Medications: Continued calcium 600 mg Capsule 1,200 mg PO BID cholecalciferol (vitamin D
[2023-04-09 12:00] VITALS: PULSE 83
== END 2023-04-09 15:55 | disposition home or self-care (01) ==
LOC: ANHED 23:18 → ANH3MEDSUR 04-08 13:06
PROVIDERS: Admitting Provider Internal Medicine; Emergency Provider Preventive Medicine Aerospace Medicine; PCP Nurse Practitioner; Visit Provider Hospitalist
DX: D70.1 Agranulocytosis secondary to cancer chemotherapy (principal); K52.1 Toxic gastroenteritis and colitis; R11.2 Nausea with vomiting, unspecified; T45.1X5A Adverse effect of antineoplastic and immunosuppressive drugs, initial encounter; N17.9 Acute kidney failure, unspecified; R55 Syncope and collapse; C50.411 Malignant neoplasm of upper-outer quadrant of right female breast; Z17.0 Estrogen receptor positive status [ER+]; Z95.828 Presence of other vascular implants and grafts; I11.9 Hypertensive heart disease without heart failure; E86.0 Dehydration; E87.6 Hypokalemia; E78.2 Mixed hyperlipidemia; R10.9 Unspecified abdominal pain; E83.42 Hypomagnesemia; R79.89 Other specified abnormal findings of blood chemistry; R63.0 Anorexia; Z68.28 Body mass index [BMI] 28.0-28.9, adult; R91.1 Solitary pulmonary nodule; F10.90 Alcohol use, unspecified, uncomplicated; Z90.49 Acquired absence of other specified parts of digestive tract; Z79.630 Long term (current) use of alkylating agent; Z79.899 Other long term (current) drug therapy
CPT/HCPCS: 36415; 71045; 71275; 74018; 80048; 80053; 81003; 83605; 83735; 84100; 85025; 93005; 96361; 96365; 96366; 96372; 96375; 96376; 99285; A9270; G0378; J1642; J1644; J2405; J2543; J3475; J3480; J7030; J7040; Q5101; Q9967

== ENCOUNTER 2023-06-04 11:14 | Outpatient (CLI) | payer MEDICARE, SELFPAY ==
--- NOTE | ~2023-06-04 | MMUS_ITS ---
EXAMINATION: MM diagnostic mo BI w jie, US breast RT limited HISTORY: History of right breast cancer status post lumpectomy TECHNIQUE: Craniocaudal, mediolateral, and mediolateral oblique 3-D tomosynthesis images of the breas ts were performed and synthetic 2-D images were generated. CAD analysis was submitted and interpreted . High resolution limited right breast ultrasound was performed. COMPARISON: 07/18/2022, 11/18/2019 BREAST PARENCHYMAL COMPOSITION: There are scattered areas of fibroglandular density. FINDINGS: MAMMOGRAPHIC FINDINGS: There are changes of interval lumpectomy in the upper outer quadrant of the right breast. There is an approximately 3.2 cm mass at the lumpectomy site. The left breast is unremarkable without suspicious mass, calcification, or architectural distortion. ULTRASOUND: There is a 3.3 x 2.1 x 2.9 cm hematoma/seroma at the 10:00 location 7 cm from the nipple correspondin g to the lumpectomy site. No suspicious cystic or solid mass is identified. IMPRESSION: 1. Interval lumpectomy changes in the upper outer quadrant of the right breast with hematoma/seroma a t the surgical site. No mammographic evidence of malignancy in either breast. 2. Recommend routine screening mammography in one year. BI-RADS Category 2: Benign finding(s). Reviewed, dictated and finalized at location D. IMPRESSION: 1. Interval lumpectomy changes in the upper outer quadrant of the right breast with hematoma/seroma at the surgical site. No mammographic evidence of malignan cy in either breast. 2. Recommend routine screening mammography in one year. BI-RADS Category 2: Benign finding(s).
== END 2023-06-04 11:15 | disposition home or self-care (01) ==
PROVIDERS: PCP Nurse Practitioner; Visit Provider Radiology Radiation Oncology
DX: C50.411 Malignant neoplasm of upper-outer quadrant of right female breast (principal)
CPT/HCPCS: 76642; 77062; 77066; G0279

== ENCOUNTER 2023-06-06 14:18 | Outpatient (CLI) | payer MEDICARE, SELFPAY ==
--- NOTE | 2023-06-06 | ECHO_ITS ---
Patient Info Name: Eve Brink Age: 77 years : 1945 Gender: Female Ht: 62 in Wt: 152 lbs BSA: 1.76 m2 HR: 78 bpm BP: 138 / 69 mmHg Technical Quality: Fair Exam Date: 06/06/2023 2:51 PM Exam Location: [facility] Patient Status: Outpatient Admit Date: 06/06/2023 Staff Ordering Physician: Polo Pascual MD Senior Gl Accountant: Jada Tillman RDCS Attending Provider: Polo Pascual MD Referring Physician: Samara STEINER; Exam Type: CA echo doppler color flow Study Info Indications - pre chemo breast cancer Complete two-dimensional, color flow and Doppler transthoracic echocardiogram is performed. Summary 1. Complete two-dimensional, color flow and Doppler transthoracic echocardiogram is performed. 2. Left ventricular chamber dimension is normal. 3. Left ventricular systolic function is normal, estimated at 60-65%. 4. The left ventricular diastolic function is grade I diastolic dysfunction. 5. E/e' 10 is mildly elevated. 6. There is mild aortic valve sclerosis. 7. There is trace tricuspid valve regurgitation. 8. No pulmonary hypertension, estimated pulmonary arterial systolic pressure is 27 mmHg. Left Ventricle E/e' 10 is mildly elevated. Left ventricular chamber dimension is normal. Left ventricular systolic function is normal, estimated at 60-65%. The left ventricular diastolic function is grade I diastolic dysfunction. Right Ventricle Right ventricular systolic function is normal and with normal TAPSE 2.6 cm. Right ventricular chamber dimension is normal. Left Atria Left atrial chamber dimension is normal. Right Atria Right atrial chamber dimension is normal. Aortic Valve The aortic valve is trileaflet. There is mild aortic valve sclerosis. There is no aortic valve stenosis. There is no aortic valve regurgitation. Pulmonic Valve There is no pulmonic regurgitation. Mitral Valve There is no mitral valve stenosis. There is no mitral valve regurgitation. Tricuspid Valve There is trace tricuspid valve regurgitation. No pulmonary hypertension, estimated pulmonary arterial systolic pressure is 27 mmHg. Pericardium/Pleural There is no pericardial effusion. Inferior Vena Cava Normal inferior vena cava with >50% collapse upon inspiration consistent with normal right atrial pressure, 5 mmHg. Aorta The aortic root size at the sinus of Valsalva is normal. Left Ventricular Outflow Tract Name Value Normal LVOT 2D LVOT Diameter 2.0 cm LVOT Doppler LVOT Peak Gradient 4 mmHg LVOT Mean Gradient 2 mmHg LVOT VTI 20 cm LVOT VTI/AV VTI Ratio 0.9 LVOT Stroke Volume 59 ml LVOT CO 13.7 l/min LVOT CI 7.8 l/min/m2 Pulmonic Valve Name Value Normal RVOT Doppler RVOT Peak Gradient 2 mmHg PV
== END 2023-06-06 14:19 | disposition home or self-care (01) ==
LOC: ANHCARD 14:19
PROVIDERS: PCP Nurse Practitioner; Visit Provider Internal Medicine Hematology & Oncology
DX: C50.411 Malignant neoplasm of upper-outer quadrant of right female breast (principal); Z17.0 Estrogen receptor positive status [ER+]; Z01.818 Encounter for other preprocedural examination
CPT/HCPCS: 93306

== ENCOUNTER 2023-10-24 08:32 | Outpatient (CLI) | payer MEDICARE, SELFPAY ==
--- NOTE | 2023-10-24 | ECHO_ITS ---
Patient Info Name: Eve Brink Age: 77 years : 1945 Gender: Female Ht: 62 in Wt: 152 lbs BSA: 1.76 m2 HR: 91 bpm BP: 136 / 70 mmHg Technical Quality: Fair Exam Date: 10/24/2023 9:17 AM Exam Location: Echo Lab Patient Status: Outpatient Admit Date: 10/24/2023 Staff Ordering Physician: Polo Pascual MD Attending Provider: Polo Pascual MD Referring Physician: Samara STEINER; Exam Type: CA echo doppler color flow Study Info Indications Z85.3 - Personal history of malignant neoplasm of breast Complete two-dimensional, color flow and Doppler transthoracic echocardiogram is performed. Strain analysis performed. Summary 1. Complete two-dimensional, color flow and Doppler transthoracic echocardiogram is performed. 2. Left ventricular chamber dimension is normal. 3. Left ventricular systolic function is normal, estimated at 60-65%. 4. The left ventricular diastolic function is grade I diastolic dysfunction. 5. E/e' 10 is mildly elevated. 6. Global longitudinal strain is normal at -18.1%. Left Ventricle E/e' 10 is mildly elevated. Global longitudinal strain is normal at -18.1%. Left ventricular chamber dimension is normal. Left ventricular systolic function is normal, estimated at 60-65%. The left ventricular diastolic function is grade I diastolic dysfunction. Right Ventricle Right ventricular systolic function is normal and with normal TAPSE 2.3 cm. Right ventricular chamber dimension is normal. Left Atria Left atrial chamber dimension is normal. Right Atria Right atrial chamber dimension is normal. Aortic Valve The aortic valve is trileaflet. There is no aortic valve stenosis. There is no aortic valve regurgitation. Pulmonic Valve There is no pulmonic regurgitation. Mitral Valve There is no mitral valve stenosis. There is no mitral valve regurgitation. Tricuspid Valve There is no tricuspid valve regurgitation. Pericardium/Pleural There is no pericardial effusion. Inferior Vena Cava Normal inferior vena cava with >50% collapse upon inspiration consistent with normal right atrial pressure, 5 mmHg. Aorta The aortic root size at the sinus of Valsalva is normal. Left Ventricular Outflow Tract Name Value Normal LVOT 2D LVOT Diameter 2.0 cm LVOT Doppler LVOT Peak Gradient 4 mmHg LVOT Mean Gradient 2 mmHg LVOT VTI 22 cm LVOT VTI/AV VTI Ratio 0.7 LVOT Stroke Volume 67 ml LVOT CO 4.6 l/min LVOT CI 2.6 l/min/m2 Pulmonic Valve Name Value Normal PV Doppler PV Peak Gradient 8 mmHg Mitral Valve Name Value Normal MV Dopple
== END 2023-10-24 08:33 | disposition home or self-care (01) ==
PROVIDERS: PCP Nurse Practitioner; Visit Provider Internal Medicine Hematology & Oncology
DX: Z13.6 Encounter for screening for cardiovascular disorders (principal); C50.411 Malignant neoplasm of upper-outer quadrant of right female breast; Z17.0 Estrogen receptor positive status [ER+]; Z85.3 Personal history of malignant neoplasm of breast
CPT/HCPCS: 93306

== ENCOUNTER 2024-01-16 08:58 | Outpatient (CLI) | payer MEDICARE, SELFPAY ==
[2024-01-16 09:43] LABS: Cholesterol 156 mg/dL (0-200); HDL Direct 83 mg/dL; Triglycerides 95 mg/dL (<150)
[2024-01-16 09:53] LABS: LDL Cholesterol Direct 62 mg/dL
[2024-01-16 10:41] LABS: Vitamin D 25 Hydroxy 67.7 ng/mL
== END 2024-01-16 08:59 | disposition home or self-care (01) ==
LOC: ANHLAB 09:02
PROVIDERS: PCP Nurse Practitioner; Visit Provider Nurse Practitioner
DX: E78.5 Hyperlipidemia, unspecified (principal); E55.9 Vitamin D deficiency, unspecified
CPT/HCPCS: 36415; 80061; 82306

== ENCOUNTER 2024-01-23 11:23 | Outpatient (CLI) | payer MEDICARE, SELFPAY ==
--- NOTE | ~2024-01-23 | MMUS_ITS ---
EXAMINATION: MM diagnostic mo BI w jie, US breast BI limited HISTORY: Neoplasm of upper outer quadrant right breast TECHNIQUE: Bilateral full field and spot left 3-D tomosynthesis images were performed and synthetic 2 -D images were generated. CAD analysis was submitted and interpreted. High resolution right upper out er quadrant, axillary and left subareolar breast ultrasound was performed. COMPARISON: 06/04/2023 diagnostic bilateral mammogram and limited right breast ultrasound BREAST PARENCHYMAL COMPOSITION: There are scattered areas of fibroglandular density. FINDINGS: MAMMOGRAPHIC FINDINGS: Again noted is a large seroma in the very posterior upper outer right breast. There is mildly diminis hed in size since 01/22/2014, currently measuring 29 x 22.7 x 25 mm. Surgical clips, right axillary ar ea. There is interval accentuation of the fibroglandular stroma of the right breast and mild right breast skin thickening since 06/04/2023; differential diagnosis includes postradiation change versus less li keyonna lymphangitic spread of tumor or lymphatic blockage. There is mildly increased prominence of the fibroglandular stroma in the subareolar area of the left. ULTRASOUND: Right breast: There is a 2.9 x 2.2 x 2.5 cm sonolucency with through transmission posterior enhancement, with wall of variable thickness and 2 mm. This is consistent with postoperative seroma following right partial mastectomy for breast cancer. No suspicious mass or shadowing is detected in the left breast subareolar area. IMPRESSION: 1. Status post right partial mastectomy with posterior upper outer seroma 2. Interval accentuated fibroglandular stroma throughout much of the right breast as well as right sk in thickening, likely due to postoperative radiation change. Considerably less likely considerations include lymphangitic spread of tumor or lymphedema from lymphatic obstruction. BI-RADS Category 2: Benign finding(s). Reviewed, dictated and finalized at location A. IMPRESSION: 1. Status post right partial mastectomy with posterior upper outer seroma 2. Interval accentuated fibroglandular stroma throughout much of the right [address] as well as right skin thickening, likely due to postoperative radiation contreras ge. Considerably less likely considerations include lymphangitic spread of tumo r or lymphedema from lymphatic obstruction. BI-RADS Category 2: Benign finding(s).
== END 2024-01-23 11:24 | disposition home or self-care (01) ==
PROVIDERS: PCP Nurse Practitioner; Visit Provider Internal Medicine Hematology & Oncology
DX: C50.411 Malignant neoplasm of upper-outer quadrant of right female breast (principal); Z17.0 Estrogen receptor positive status [ER+]
CPT/HCPCS: 76642; 77062; 77066; G0279

== ENCOUNTER 2024-02-28 13:02 | Outpatient (CLI) | payer MEDICARE, SELFPAY ==
--- NOTE | 2024-02-28 | ECHO_ITS ---
Patient Info Name: Eve Brink Age: 78 years : 1945 Gender: Female Ht: 62 in Wt: 165 lbs BSA: 1.84 m2 HR: 84 bpm BP: 154 / 69 mmHg Technical Quality: Fair Exam Date: 02/28/2024 1:16 PM Exam Location: Echo Lab Patient Status: Outpatient Admit Date: 02/28/2024 Staff Ordering Physician: Polo Pascual MD Ground Surveillance Systems Operator: Jada Tillman RDCS Attending Provider: Ploo Pascual MD Referring Physician: Samara STEINER; Exam Type: CA echo doppler color flow Study Info Indications - breast ca chemo Complete two-dimensional, color flow and Doppler transthoracic echocardiogram is performed. Summary 1. Complete two-dimensional, color flow and Doppler transthoracic echocardiogram is performed. 2. Left ventricular chamber dimension is normal. 3. Left ventricular systolic function is normal, estimated at 60-65%. 4. The left ventricular diastolic function is grade I diastolic dysfunction. 5. E/e' 9 is minimally elevated. 6. Global longitudinal strain is normal at -18.0%. 7. There is mild aortic valve sclerosis. 8. There is trace tricuspid valve regurgitation. 9. No pulmonary hypertension, estimated pulmonary arterial systolic pressure is 23 mmHg. Left Ventricle E/e' 9 is minimally elevated. Global longitudinal strain is normal at -18.0%. Left ventricular chamber dimension is normal. Left ventricular systolic function is normal, estimated at 60-65%. The left ventricular diastolic function is grade I diastolic dysfunction. Right Ventricle Right ventricular chamber dimension is normal. Right ventricular systolic function is normal. Left Atria Left atrial chamber dimension is normal. Right Atria Right atrial chamber dimension is normal. Aortic Valve The aortic valve is trileaflet. There is mild aortic valve sclerosis. There is no aortic valve stenosis. There is no aortic valve regurgitation. Pulmonic Valve There is no pulmonic regurgitation. Mitral Valve There is no mitral valve stenosis. There is no mitral valve regurgitation. Tricuspid Valve There is trace tricuspid valve regurgitation. No pulmonary hypertension, estimated pulmonary arterial systolic pressure is 23 mmHg. Pericardium/Pleural There is no pericardial effusion. Inferior Vena Cava Normal inferior vena cava with >50% collapse upon inspiration consistent with normal right atrial pressure, 5 mmHg. Aorta The aortic root size at the sinus of Valsalva is normal. Left Ventricular Outflow Tract Name Value Normal LVOT 2D LVOT Diameter 2.0 cm LVOT Doppler LVOT Peak Gradient 5 mmHg LVOT Mean Gradient 3 mmHg LVOT VTI 24 cm LVOT VTI/AV VTI Ratio 0.7 LVOT Stroke Volume 72 ml LVOT CO 14.7 l/min LVOT CI 8.0 l/min/m2 Pulmonic Valve Name Value Normal PV Doppler PV P
== END 2024-02-28 13:03 | disposition home or self-care (01) ==
LOC: ANHCARD 13:02
PROVIDERS: PCP Nurse Practitioner; Visit Provider Internal Medicine Hematology & Oncology
DX: Z13.6 Encounter for screening for cardiovascular disorders (principal); C50.411 Malignant neoplasm of upper-outer quadrant of right female breast; Z17.0 Estrogen receptor positive status [ER+]
CPT/HCPCS: 93306

== ENCOUNTER 2024-11-27 09:29 | Outpatient (CLI) | payer MEDICARE, SELFPAY ==
[2024-11-27 09:42] LABS: Basophils Absolute Auto 0.1 K/mm3 (0.0-0.1); Basophils Percent Auto 0.8 % (0.2-1.2); Eosinophils Absolute Auto 0.2 K/mm3 (0-0.3); Hematocrit 38.4 % (37.0-47.0); Hemoglobin 12.8 g/dL (12.0-15.0); Immature Granulocyte Absolute 0.03 K/mm3 (0.00-0.031); Immature Granulocyte Percent A 0.4 % (0-0.5); Lymphocytes Absolute Auto 2.04 K/mm3 (0.9-3.2); Lymphocytes Percent Auto 24.5 % (18.3-44.2); Mean Corpuscular HGB Conc 33.3 g/dl (32-36); Mean Corpuscular Hemoglobin 29.8 pg (26-34); Mean Corpuscular Volume 89.3 fl (80-100); Mean Platelet Volume 9.2 fl (7.4-10.4); Monocytes Absolute Auto 0.8 K/mm3 (0.1-0.6); Neutrophils Absolute Auto 5.3 K/mm3 (1.3-6.7); Neutrophils Percent Auto 63.3 % (45.5-73.1); Platelet Count Result 302 k/mm3 (150-375); Red Cell Distribution Width 13.3 % (11.5-14.5); White Blood Count 8.3 K/mm3 (4.5-10.0)
[2024-11-27 09:50] LABS: Blood Urea Nitrogen 29 mg/dL (8-26); Carbon Dioxide 24 mmol/L (22-30); Chloride 105 mmol/L (98-109); Estimated Glomerular Filt Rate 36; Glucose 93 mg/dL (70-105); Potassium 4.6 mmol/L (3.5-4.9); Sodium 139 mmol/L (138-146)
[2024-11-27 11:05] LABS: Alanine Aminotransferase 17 U/L (6-35); Albumin Level 4.1 g/dL (3.5-5.1); Alkaline Phosphatase 89 U/L (38-126); Anion Gap 7 mmol/L (4-12); Aspartate Amino Transferase 27 U/L (14-36); Bilirubin,Total 0.8 mg/dL (0.2-1.3); Blood Urea Nitrogen 30 mg/dL (7-17); Calcium 9.9 mg/dL (8.4-10.2); Carbon Dioxide 23 mmol/L (22-30); Chloride 105 mmol/L (98-107); Estimated Glomerular Filt Rate 44; Glucose 92 mg/dL (65-110); Potassium 4.7 mmol/L (3.4-5.0); Sodium 135 mmol/L (137-145)
== END 2024-11-27 09:30 | disposition home or self-care (01) ==
LOC: ANHLAB 09:30
PROVIDERS: PCP Nurse Practitioner Family; Visit Provider Internal Medicine Hematology & Oncology
DX: C50.411 Malignant neoplasm of upper-outer quadrant of right female breast (principal); Z17.0 Estrogen receptor positive status [ER+]
CPT/HCPCS: 36415; 80047; 80053; 85025

== ENCOUNTER 2025-09-21 09:38 | Outpatient (CLI) | payer MEDICARE, SELFPAY ==
--- OUTSIDE RECORDS SUMMARY | 2007-11-17 02:34 | XMS_ITS | Continuity of Care Document ---
Author Organization [facility] Address [address] [place] [address] Phone Care Team Providers Care Press Operator Printing Name Role Phone Patrick Sabillon MD Unavailable Unavailable Procedures Procedure Date Office/outpatient Visit, Est Eye Exam, New Patient Advance Directives Directive Yes / No Effective Date File Name No Information Encounters Encounter Description Practice Location Reason(s) For Visit Diagnoses Date Provider Providers Copied on Encounter Office/outpat ient Visit, Est [facility], [address] [place] [address] [address], [place], [place], [id number], tel:[phone] SEC [facility] No Information [address] [facility] [place], [id number], [place]. tel:[phone] [facility], [address] [place] [address] [address], [place], [place], [id number], tel:[phone] SEC [facility] No Information [address], [facility], [place], [place], [id number], [place]. tel:[phone] Family History Family Member Type Diagnosis Age [...]
--- NOTE | ~2025-09-21 | DEXA_ITS ---
Bone Density Report Name: REMINGTON WAN Age: 79 Sex: Female Ethnicity: White Date of : 1945 Indication: osteopenia; prior fracture; cancer; Referring Provider: SHIMON SARABIA Study: Bone densitometry was performed. Exam Date: September 21, 2025 Accession number: [id number] Bone Density: Region BMD T-score Z-score Classification AP Spine(L1, L2, L3) 0.979 -0.4 2.2 Normal Femoral Neck (Left) 0.586 -2.4 -0.1 Osteopenia Total Hip (Left) 0.797 -1.2 0.8 Osteopenia Femoral Neck (Right) 0.654 -1.8 0.5 Osteopenia Total Hip (Right) 0.802 -1.1 0.8 Osteopenia Total Hip Mean 0.799 -1.2 0.8 Osteopenia World Health Organization criteria for BMD impression classify patients as: Normal (T-score at or above -1.0), Osteopenia (T-score between -1.0 and -2.5), or Osteoporosis (T-score at or below -2.5). 10-year Fracture Risk(1): Major Osteoporotic Fracture 24% Hip Fracture 6.9% Reported Risk Factors: [place] (), Neck BMD=0.586, BMI=31.4, previous fracture (1) FRAX(R) Version 3.08. Fracture probability calculated for an untreated patient. Fracture probability may be lower if the patient has received treatment. Previous Exams: Region Exam Age BMD T-score BMD Change BMD Change Date g/cm2 vs Baseline vs Previous AP Spine (L1-L3) 09/21/2025 79 0.979 -0.4 0.157 (19.2%)* 0.116 (13.4%)* 07/18/2022 76 0.863 -1.4 0.041 (5.0%)* 0.041 (5.0%)* 11/18/2019 73 0.822 -1.8 Total Hip(Left) 09/21/2025 79 0.797 -1.2 -0.009 (-1.1%) 0.012 (1.5%) 07/18/2022 76 0.785 -1.3 -0.021 (-2.6%) -0.021 (-2.6%) 11/18/2019 73 0.805 -1.1 Total Hip(Right) 09/21/2025 79 0.802 -1.1 -0.050 (-5.9%) -0.019 (-2.3%) 07/18/2022 76 0.821 -1.0 -0.031 (-3.7%) -0.031 (-3.7%) 11/18/2019 73 0.852 -0.7 *Denotes significance at 95% confidence level, LSC for AP Spine = 0.022 g/cm2, LSC for Total Hip = 0.027 g/cm2 Clinical Information Provided by Patient: Has had a low trauma fracture Has used the following medications: Vitamin D, Calcium Has the following medical conditions: Cancer Patient maximum height was 62 Menopause Age: 51 Drinks caffeinated beverages Onset of menses at age 13 Number of children 1 Impression: The patient has low bone mass, based on the Left Femoral Neck T-score. The patient has an estimated ten-year risk of hip fracture of 6.9% and an estimated ten-year risk of major fracture of 24%, based on the WHO FRAX algorithm. The patient has risk factors, including: previous fracture. No significant bone loss was observed. Discussion: BONE DENSITY IS LOW AT ONE OR MORE SKELETAL SITES. THE PATIENT'S BMD AND CLINICAL RISK FACTORS CONTRIBUTE TO THIS PATIENT'S HIGH RISK OF FRACTURE. This patient's lowest T-score is low at one or more skeletal sites. It meets the World Health Organization's (WHO) criteria for ?low bone mass? (T-score between -1.0 and -2.5). The patient's 10-year risk of hip fracture and 10 year risk of a major osteoporotic fracture as calculated by FRAX exceeds the threshold where pharmacological therapy is recommended by the National Osteoporosis Foundation (NOF). However, all treatment decisions require clinical judgment and consideration of individual patient factors, including patient preferences, comorbidities, previous drug use, risk factors not captured in the FRAX model (e.g., frailty, falls, vitamin D deficiency, increased bone turnover, interval significant decline in bone density) and possible under or overestimation of fracture risk by FRAX. The patient should follow a healthful lifestyle (good nutrition with adequate calcium and vitamin D, and appropriate weight-bearing exercise). Follow-Up: Consider a repeat BMD and Vertebral Fracture Assessment (VFA) exam in 2 years or sooner if medically necessary, to reassess this patient's status. Reported by: KLEBER on 09/21/2025 10:36:00 AM. Reviewed, dictated and finalized at location A.
--- NOTE | ~2025-09-21 | MM_ITS ---
EXAMINATION: MM screening mo BI w jie HISTORY: Screening TECHNIQUE: Craniocaudal and mediolateral oblique 3-D tomosynthesis images were obtained and synthetic 2-D images were generated. CAD analysis was submitted and interpreted. COMPARISON: Comparison to multiple prior studies sequentially, with oldest reviewed study dated 11/18/2019. BREAST PARENCHYMAL COMPOSITION: Not dense: There are scattered areas of fibroglandular density. FINDINGS: There is no evidence of suspicious mass, calcification, or architectural distortion to suggest malignancy in either breast. There has been no suspicious interval change. IMPRESSION: 1. No mammographic evidence of malignancy. 2. Recommend routine screening mammography in one year. BI-RADS Category 1: Negative Reviewed, dictated and finalized at location B. [employer]CH
--- OUTSIDE RECORDS SUMMARY | 2025-09-21 10:02 | XMS_ITS | Encounter Summary ---
Author Organization [facility] Address [id number] [place] [address] Care Team Providers Care Fabrication And Layout Craftsman Name Role Phone Jose Garces MD Primary Care Provider [phone] Reason for Visit * Reason Onset Date Comments Urinary tract infection 04/03/2023 Encounter Details Date Type Department Care Team (Late Contact Info) Description 04/03/2023 Telephone [facility] Oncology and Hematology - [place] [address] [place] [address] Polo Pascual MD [address] [facility] [employer] [address] [place] [address] Urinary tract infection Social History Tobacco Use Types Packs/Day Years Used Date Smoking Tobacco: Never Smokeless Tobacco: Never Alcohol Use Standard Drinks/Week Comments Not Currently 0 (1 standard drink = 0.6 oz pur e alcohol) Comments No Sex and Gender Information Value Date Recorded Sex Assigned at Not on file Legal Sex Female 8:49 AM CDT Gender Identity Not on file Sexual Orientation Not on file Occupation Industry Job Start Date Job End Date Not on file Not on file Not on file Not on file COVID-19 Exposure Response Date Recorded In the last 10 days, have yo u been in contact with someone who was confirmed or suspected to have Coronavirus/COVID-19? 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
--- OUTSIDE RECORDS SUMMARY | 2025-09-21 10:02 | XMS_ITS | Clinical Summary ---
Author Organization [facility] Address [address] [facility] [facility] [place] [address] Care Team Providers Care Electron Beam Machine Welder Setter Name Role Phone Jamey Marino Primary Care Provider [phone] Source Comments [facility],non-owned Affiliates and Associated Physician Practices is amultiple site organization consisting of ambulatory clinics and hospital sitesin [place], [place], [place] and [place]. This disclosure is being madepursuant to the Care Everywhere program and may not contain all information available regarding this patient. Last updated 18.[facility] [employer] Allergies No known active allergies Immunizations Immunization Administration Dates Next Due INFLUENZA VACCINE, HIGH-DOSE , QUADR. (FLUZONE HIGH-DOSE QUADRIVALENT; 65Y+), 0.7 ML (HD-IIV4) 09/20/2016 Social History Tobacco Use Types Packs/Day Years Used Date Smoking Tobacco: Never Assessed Comments Unknown Sex and Gender Information Value Date Recorded Sex Assigned at Not on file Legal Sex Female 11:57 AM FIRE SPRINKLER FITTER Gender Identity Not on file Sexual Orientation Not on file Plan of Treatment Health Maintenance Due Date Last Done Comments BONE DENSITY TESTING 1945 HEPATITIS C SCREENING 12/21/1964 DTAP/TDAP/TD VACCINES (1 - Tdap) 1965 PNEUMOCOCCAL VACCINE 50+ (1 of 1 - PCV) 1996 ZOSTER VACCINE (1 of 2) 1996 Respiratory Syncytial Virus (RSV) Vaccine Pt: or over 60 yrs (1 - 1-dose 75+ series) 2021 DEPRESSION SCREENING 11/11/2024 COVID-19 VACCINE (1 - 2024-2 5 season) 2025 INFLUENZA VACCINE (#1) 2025 09/20/2016 HEPATITIS B VACCINE Aged Out No longe r eligible based on patient's age to complete this topic HIB VACCINE Aged Out No longer eligi ble based on patient's age to complete this topic HPV VACCINE Aged Out No longer eligi ble based on patient's age to complete this topic MENINGOCOCCAL (Group B) VACC INE SHARED DECISION-MAKING Aged Out No longer eligibl e based on patient's age to complete this topic MENINGOCOCCAL GROUPS A/C/Y/W VACCINE Aged Out No longer eligible b ased on patient's age to complete this topic Insurance COVENTRY MEDICARE Care Teams Electron Beam Machine Welder Setter Relationship Specialty Start Date End Date Jamey Marino DO [address] [place] [address] [facility] - General 08/17/22
--- OUTSIDE RECORDS SUMMARY | 2025-09-21 10:02 | XMS_ITS | Encounter Summary ---
Author Organization [facility] [employer] [facility] Address [address] [place] [address] Care Team Providers Care Television News Reporter Name Role Phone Jose Garces MD Primary Care Provider [phone] Encounter Details Date Type Department Care Team (Late st Contact Info) Description 10/01/2022 Abstract [facility] Oncology and Hematology [facility] [address] [place] [address] Deepika Pretty RN Social History Tobacco Use Types Packs/Day Years Used Date Smoking Tobacco: Never Smokeless Tobacco: Never Alcohol Use Standard Drinks/Week Comments Not Currently 0 (1 standard drink = 0.6 oz pur e alcohol) Comments Unknown Sex and Gender Information Value [...] suspected to have Coronavirus/COVID-19? No / Unsure 10/03/2022 10:21 AM COMMERCIAL PRODUCER documented as of this encounter Plan of Treatment Upcoming Encounters Date Type Department Care Team (Late st Contact Info) Description 10/06/2025 9:45 AM COMMERCIAL PRODUCER Office Visit [facility] Oncology [facility] Hemat[facility] [address] [place] [address] Polo Pascual MD [address] [facility] [place] [facility] [address] [place] [address] documented as of this encounter Visit Diagnoses Not on filedocumented in this encounter Care Teams Television News Reporter Relationship Specialty Start Date End Date Jose Garces MD PCP - General Family Practice 04/26/23 documented as of this encounter
--- OUTSIDE RECORDS SUMMARY | 2025-09-21 10:02 | XMS_ITS | Clinical Summary ---
Author Organization [facility] Lana Dotson Address [address] [place] [address] Care Team Providers Care Clinical Support Associate Name Role Phone Jose Garces MD Primary Care Provider [phone] Allergies No known active allergies Medications lisinopriL (PRINIVIL) 20 mg tablet Take 20 mg by mouth daily. Active atorvastatin (LIPITOR) 40 mg tablet Take 40 mg by mouth daily. Active IBUPROFEN ORAL Take 400 mg by mouth. Active diphenoxylate-at ropine 2.5 mg-0.025 mg tablet Take 1 Tablet by mouth 4 times daily as needed for Diarrhea/Lo ose Stools. 30 Tablet 01/10/2023 Active ondansetron (Zofran) 8 mg Tablet Take 1 Tablet (8 mg) by mouth every 8 hours as needed for Nausea/Emes is. 30 Tablet 1 02/14/2023 Active potassium chloride (KLOR-CON) 10 mEq Extended Release tablet Take 1 Tablet (10 mEq) by mouth 3 times daily. 30 Tablet 1 04/26/2023 Active ferrous fum/vit C/B12-if/folic (IRON [id number] IC ACID ORAL) Take by mouth daily. Active POTASSIUM-99 ORAL Take 1 Tablet by mouth 2 times daily. Active anastrozole (Arimidex) 1 mg tablet Take 1 Tablet (1 mg) by mouth daily. 90 Tablet 4 11/27/2024 Active Active Problems Problem Noted Date Diagnosed Date Malignant neoplasm of upper- outer quadrant of right breast in female, estrogen receptor positive 09/11/2022 Cancer Staging:Clinical stage from 09/11/2022:Stage IA(cT1c, cN0, cM0, G2, ER+, KS+, HER2-) - Signed by Dee Yoo MD on 09/11/2022 Family History Medical History Relation Name Comments Breast Cancer Mother Mari Breast Cancer Sister Anabelle Relation Name Status Comments Mother Mari Sister Anabelle Social History Tobacco Use Types Packs/Day Years Used Date Smoking Tobacco: Never Smokeless Tobacco: Never Tobacco Cessation:Counseling Given: Not Answered Alcohol Use Standard Drinks/Week Comments Not Currently 0 (1 standard drink = 0.6 oz pur e alcohol) Feeling Safe Answer Date Recorded Are you in a relationship wi th someone who hurts you emotionally and/or physically? No 04/22/2024 Food Insecurity Answer Date Recorded Patient needs follow up regardin 03/04/2025 Transportation Needs Answer Date Record ed Patient needs follow up regardin 03/04/2025 Housing Stability Answer Date Recorded Social/Environmental Concerns No concerns Utility Needs Answer Date Recorded Patient needs follow up regardin 03/04/2025 Comments No Sex and Gender Information Value Date Recorded Sex Assigned at Not on file Legal Sex Female 8:49 AM CDT Gender Identity Not on file Sexual Orientation Not on file Occupation Industry Job Start Date Job End Date Not on file Not on file Not on file Not on file Last Filed Vital Signs Vital Sign Reading Time Taken Comments Blood Pressure 130/70 11/27/2024 9:57 AM PARLOR MAID Pulse 86 11/27/2024 9:54 AM PARLOR MAID Temperature 36.6 C (97.8 F) 11/27/2024 9:54 AM PARLOR MAID Respiratory Rate 15 11/27/2024 9:54 AM PARLOR MAID Oxygen Saturation 92% 11/27/2024 9:54 AM PARLOR MAID Inhaled Oxygen Concentration - - Weight 84.3 kg (185 lb 12.8 oz) 11/27/2024 9:54 AM PARLOR MAID Height 157.5 cm (5' 2) 04/22/2024 10:5 6 AM CDT Body Mass Index 33.98 04/22/2024 10:56 AM CDT Plan of Treatment Upcoming Encounters Date Type Department Care Team (Late st Contact Info) Description 10/06/2025 9:45 AM PARLOR MAID Office Visit [facility] Oncology and Hematology - [place] [address] [place] [address] Polo Pascual MD [address] [facility] [address] [place] [address] Health Maintenance Due Date Last Done Comments DTAP/TDAP/TD VACCINES (1 - Tdap) 1965 PNEUMOCOCCAL VACCINE 50+ YEARS (1 of 1 - PCV) 12/26/18 97 ZOSTER VACCINE (1 of 2) 1996 RSV VACCINE (60+ or ) (1 - 1-dose 75+ series) 2021 INFLUENZA VACCINE (#1) 2025 09/20/2016 OSTEOPOROSIS SCREENING 12/21/2027 12/21/2022 Medical Devices Implanted Type Area Cook Pickled Meat Device Identifier Shelf Expiration Date Model / Serial / Lot Machine Deicer Element Winder Clip Surgiclip Ii Kirk 9.75in [id number] - [id number] Implanted:Qty: 1 on 10/03/2022 by Dee Yoo [place] [facility] [place]ip Right: Axilla MEDTRONIC - COVIDIEN 03/10/2027 [id number] / / [id number] Hemostatic Surgicel 2x14in 1949 [id number] Implanted:Qty: 1 on 10/03/2022 by Dee Yoo MD at [facility] Hemostatic Right: Axilla [employer] 10/10/20261950 / / [id number] Explanted Type Area Cook Pickled Meat Device Identifier Shelf Expiration Date Model / Serial / Lot Port Powerport Clearvue 8fr Mri [id number] - [id number] Implanted:Qty: 1 on 12/19/2022 by Dee Yoo MD at [facility] Explanted:Qty: 1 on 04/22/2024 by Dee Yoo MD at [facility] Port Left: Chest BARD AILYN VASC 10/10/2023 [id number] / / [id number] Procedures Procedure Name Priority Date/Time Associated Diagnosis Comments XR DEXA BONE DENSITY AXIAL 1 OR MORE SITES Routine 12/21/2022 from Last 3 Months or Most Recently Relevant to Health Maintenance Results * XR DEXA BONE DENSITY AXIAL 1 OR MORE SITES (12/21/2022) Anatomical Region Laterality Modality Other Polo Pascual MD DIAGNOSTIC IMAGING ORDERABLES F inal Result from Last 3 Months or Most Recently Relevant to Health Maintenance Insurance RX AETNA Medicare Part D Care Teams Clinical Support Associate Relationship Specialty Start Date End Date Jose Garces MD PCP - General Family Practice 04/26/23
== END 2025-09-21 09:39 | disposition home or self-care (01) ==
LOC: ANHFOHIMG 09:41
PROVIDERS: PCP Nurse Practitioner Family; Visit Provider Internal Medicine Hematology & Oncology
DX: Z12.31 Encounter for screening mammogram for malignant neoplasm of breast (principal); M85.89 Other specified disorders of bone density and structure, multiple sites
CPT/HCPCS: 77063; 77067; 77080

== ENCOUNTER 2025-09-21 10:18 | Outpatient (CLI) | payer MEDICARE, SELFPAY ==
--- OUTSIDE RECORDS SUMMARY | 2007-11-17 02:34 | XMS_ITS | Continuity of Care Document ---
Author Organization [facility] Address [address] [place] [address] Phone Care Team Providers Care Induction Furnace Operator Name Role Phone Patrick Sabillon MD Unavailable Unavailable Procedures Procedure Date Office/outpatient Visit, Est Eye Exam, New Patient Advance Directives Directive Yes / No Effective Date File Name No Information Encounters Encounter Description Practice Location Reason(s) For Visit Diagnoses Date Provider Providers Copied on Encounter Office/outpat ient Visit, Est [facility], [address] [place] [address] [address], [place], [place], [id number], tel:[phone] [facility] No Information [address] [facility] [place], [id number], [place]. tel:[phone] [facility], [address] [place] [address] [address], [place], [place], [id number], tel:[phone] [facility] No Information [address], [facility], [place], [place], [id number], [place]. tel:[phone] Family History Family Member Type Diagnosis Age At Onset No Information Payers Payer name Insurance type Covered constitution party ID Authoriza tion(s) No Information Social History Type Description Quantity Date Captured Comments Sex Female Smoking Status No Information Chief Complaint And Reason For Visit No Information Reason For Referral Reason For Referral No Information History Of Present Illness Encounter Date Complaint History Of Prese nt Illness No Information Functional Status Date Functional Assessmen t No Information Instructions Date Instruction Additional Infor mation No Information Assessments Type Assessment Date No Information Patient Care Teams Name Effective Dates (start - stop) Status Members No Information
[2025-09-21 10:31] LABS: Hematocrit 40.7 % (37.0-47.0); Hemoglobin 13.4 g/dL (12.0-15.0); Immature Granulocyte Percent A 0.3 % (0-0.5); Lymphocytes Absolute Auto 1.94 K/mm3 (0.9-3.2); Mean Corpuscular HGB Conc 32.9 g/dl (32-36); Mean Corpuscular Hemoglobin 30.6 pg (26-34); Mean Corpuscular Volume 92.9 fl (80-100); Nucleated Red Blood Cells Absolute Auto 0.000 K/mm3 (0.0-0.012); Nucleated Red Blood Cells Perc 0.0 % (0.0-0.2); Platelet Count Result 283 k/mm3 (150-375); Red Blood Count 4.38 M/mm3 (4.2-5.4); White Blood Count 8.8 K/mm3 (4.5-10.0)
--- OUTSIDE RECORDS SUMMARY | 2025-09-21 10:51 | XMS_ITS | Encounter Summary ---
Author Organization [facility] [employer] [facility] Address [address] [place] [address] Care Team Providers Care Doctor Of Naprapathic Medicine Name Role Phone Jose Garces MD Primary Care Provider [phone] Reason for Visit * Reason Onset Date Comments Urinary tract infection 04/03/2023 Encounter Details Date Type Department Care Team (Late Contact Info) Description 04/03/2023 Telephone [facility] Oncology and Hematology - [place] [address] [place] [address] Polo Pascual MD [address] [facility] [employer] [address] [place] [address] Urinary tract infection Social History [...] (Late Contact Info) Description 10/06/2025 9:45 AM CONCRETE PLANT LABORER Office Visit [facility] Oncology and Hematology - [place] [address] [place] [address] Polo Pascual MD [address] [facility] [address] [place] [address] documented as of this encounter Visit Diagnoses Diagnosis Urinary tract infection without hematuria, site unspecified- Primary documented in this encounter Care Teams Doctor Of Naprapathic Medicine Relationship Specialty Start Date End Date Jose Garces MD PCP - General Family Practice 04/26/23 documented as of this encounter
--- OUTSIDE RECORDS SUMMARY | 2025-09-21 10:51 | XMS_ITS | Clinical Summary ---
Author Organization [facility] Address [address] [facility] [address] Care Team Providers Care Bed Machine Operator Name Role Phone Jamey Marino Primary Care Provider [phone] Source Comments [facility],non-owned Affiliates and Associated Physician Practices is amultiple site organization consisting of ambulatory clinics and hospital sitesin [place], [place], [place] and [place]. This disclosure is being madepursuant to the Care Everywhere program and may not contain all information available regarding this patient. Last updated 18.[facility] [employer] Allergies No known active allergies Immunizations Immunization Administration Dates Next Due INFLUENZA VACCINE, HIGH-DOSE , QUADR. (FLUZONE HIGH-DOSE QUADRIVALENT; 65Y+), 0.7 ML (HD-IIV4) 09/20/2016 Social History Tobacco Use Types Packs/Day Years Used Date Smoking Tobacco: Never Assessed Comments Unknown Sex and Gender Information Value Date Recorded Sex Assigned at Not on file Legal Sex Female 11:57 AM GARAGE HAND Gender Identity Not on file Sexual Orientation [...] this topic Insurance COVENTRY MEDICARE Care Teams Bed Machine Operator Relationship Specialty Start Date End Date Jamey Marino DO [address] [place] [address] [facility] - General 08/17/22
--- OUTSIDE RECORDS SUMMARY | 2025-09-21 10:52 | XMS_ITS | Clinical Summary ---
Author Organization [facility] Lana Dotson Address [address] [place] [address] Care Team Providers Care Customer Trainer Name Role Phone Jose Garces MD Primary Care Provider [phone] Allergies No known active allergies Medications lisinopriL [...] 1 04/26/2023 Active ferrous fum/vit C/B12-if/folic (IRON [id number] IC ACID ORAL) Take by mouth daily. [...] from 09/11/2022:Stage IA(cT1c, cN0, cM0, G2, ER+, NM+, HER2-) - Signed by Dee Yoo MD [...] Comments Blood Pressure 130/70 11/27/2024 9:57 AM WAX POT TENDER Pulse 86 11/27/2024 9:54 AM WAX POT TENDER Temperature 36.6 C (97.8 F) 11/27/2024 9:54 AM WAX POT TENDER Respiratory Rate 15 11/27/2024 9:54 AM WAX POT TENDER Oxygen Saturation 92% 11/27/2024 9:54 AM WAX POT TENDER Inhaled Oxygen Concentration - - Weight 84.3 kg (185 lb 12.8 oz) 11/27/2024 9:54 AM WAX POT TENDER Height 157.5 cm (5' 2) 04/22/2024 10:5 6 AM CDT Body Mass Index 33.98 04/22/2024 10:56 AM CDT Plan of Treatment Upcoming Encounters Date Type Department Care Team (Late st Contact Info) Description 10/06/2025 9:45 AM WAX POT TENDER Office Visit [facility] Oncology and Hematology - [place] [address] [place] [address] Polo Pascual MD [address] [facility] [address] [place] [address] Health Maintenance Due Date Last Done Comments DTAP/TDAP/TD VACCINES (1 - Tdap) 1965 PNEUMOCOCCAL VACCINE 50+ YEARS (1 of 1 - PCV) 12/26/18 97 ZOSTER VACCINE (1 of 2) 1996 RSV VACCINE (60+ or ) (1 - 1-dose 75+ series) 2021 Medicare Advantage (PR) Prev entative Visit/Annual Wellness Visit 11/11/2024 INFLUENZA VACCINE (#1) 2025 09/20/2016 OSTEOPOROSIS SCREENING 12/21/2027 12/21/2022 Medical Devices Implanted Type Area Temple Marker Device Identifier Shelf Expiration Date Model / Serial / Lot Yard Engineer Clip Surgiclip Ii Kirk 9.75in [id number] - [id number] Implanted:Qty: 1 on 10/03/2022 by Dee Yoo [place] [facility] Clip Right: Axilla MEDTRON[employer] - COVIDIEN 03/10/2027 [id number] / / [id number] Hemostatic Surgicel 2x14in 1950 - [id number] Implanted:Qty: 1 on 10/03/2022 by Dee Yoo MD at [facility] Hemostatic Right: Axilla J[employer]J- [employer] 10/10/2026 1951 / / [id number] Explanted Type Area Temple Marker Device Identifier Shelf Expiration Date Model / Serial / Lot Port Powerport Clearvue 8fr Mri [id number] - [id number] Implanted:Qty: 1 on 12/19/2022 by Dee Yoo MD [place] [facility] Explanted:Qty: 1 on 04/22/2024 by Dee Yoo MD at [facility] Port Left: Chest BARD AILYN VASC 10/10/2023 [id number] / / [id number] Procedures Procedure Name Priority Date/Time Associated Diagnosis [...] Most Recently Relevant to Health Maintenance Insurance [facility] Address: [address] [address] [facility] Address: [address] [address] RX AETNA Medicare Part D Care Teams Customer Trainer Relationship Specialty Start Date End Date Jose Garces MD PCP - General Family Practice 04/26/23
--- OUTSIDE RECORDS SUMMARY | 2025-09-21 10:52 | XMS_ITS | Encounter Summary ---
Author Organization [facility] [employer] [facility] Address [address] [place] [address] Care Team Providers Care Chief Solution Architect Name Role Phone Jose Garces MD Primary Care Provider [phone] Encounter Details Date Type Department Care Team (Late st Contact Info) Description 10/01/2022 Abstract [facility] Oncology and Hematology [facility] [address] [place] [address] Deepika Pretty RN Social History [...] Coronavirus/COVID-19? No / Unsure 10/03/2022 10:21 AM QUALITY ASSURANCE CLERK documented as of this encounter Plan of Treatment Upcoming Encounters Date Type Department Care Team (Late st Contact Info) Description 10/06/2025 9:45 AM QUALITY ASSURANCE CLERK Office Visit [facility] [address] [place] [address] Polo Pascual MD [address] [facility] [address] [place] [address] documented as of this encounter Visit Diagnoses Not on filedocumented in this encounter Care Teams Chief Solution Architect Relationship Specialty Start Date End Date Jose Garces MD PCP - General Family Practice 04/26/23 documented as of this encounter
[2025-09-21 11:12] LABS: Alanine Aminotransferase 16 U/L (6-35); Albumin Level 4.7 g/dL (3.5-5.1); Alkaline Phosphatase 89 U/L (38-126); Anion Gap 9 mmol/L (4-12); Aspartate Amino Transferase 25 U/L (14-36); Bilirubin,Total 0.9 mg/dL (0.2-1.3); Blood Urea Nitrogen 15 mg/dL (7-17); Calcium 10.1 mg/dL (8.4-10.2); Carbon Dioxide 23 mmol/L (22-30); Chloride 105 mmol/L (98-107); Estimated Glomerular Filt Rate 44; Glucose 88 mg/dL (65-110); Potassium 4.4 mmol/L (3.4-5.0); Sodium 137 mmol/L (137-145); Total Protein 7.6 g/dL (6.3-8.2)
== END 2025-09-21 10:19 | disposition home or self-care (01) ==
LOC: ANHLAB 10:19
PROVIDERS: PCP Nurse Practitioner Family; Visit Provider Internal Medicine Hematology & Oncology
DX: C50.411 Malignant neoplasm of upper-outer quadrant of right female breast (principal); Z17.0 Estrogen receptor positive status [ER+]
CPT/HCPCS: 36415; 80053; 85025; 86300